=== PATIENT | male | born 1985 | race Two or more races ===

== ENCOUNTER 2017-01-15 10:35 | Inpatient (IN) | payer OTHER ==
[2017-01-15] MEDS ORDERED: Sodium Chloride 0.9% 1,000 ML IV ONE (10:49)
[2017-01-15] MEDS ORDERED: Sodium Chloride 0.9% 10 ML Syringe FLUSH PRN ×2 (10:49→14:02)
[2017-01-15] MEDS ORDERED: Sodium Chloride 0.9% 2.5 ML Syringe FLUSH PRN ×2 (10:49→14:02)
[2017-01-15] MEDS ORDERED: Ondansetron 4 MG/2 ML SDV IVPUSH ONE (10:55)
[2017-01-15] MEDS: HYDROmorphone 1 MG/ML Syringe IVPUSH PRN ×5 (11:07→22:44)
[2017-01-15 11:37] LABS: CHLORIDE,CL 102 mmol/L (98-110); SODIUM,NA 136 mmol/L (136-146)
[2017-01-15] MEDS ORDERED: Iopamidol 755 Mg/ML 100 ML Bottle IVPUSH STA (12:18)
[2017-01-15] MEDS ORDERED: metroNIDAZOLE/Normal Saline 500 MG in Premix Bag 1 BAG IV ONE (13:17)
[2017-01-15] MEDS ORDERED: Ciprofloxacin in D5W 400 MG in Premix Bag 1 BAG IV SCH ×2 (13:30)
[2017-01-15] MEDS ORDERED: Ondansetron 4 MG/2 ML SDV IVPUSH PRN (14:02)
--- NOTE | 2017-01-15 14:29 | PCM.CONS ---
H&P History of Present Illness - General Date of Service: 01/15/17 Admit Problem/Dx: Admission Diagnosis/Problem Admission Diagnosis/Problem Diverticulitis of colon Microperforation with a small amount of extraluminal air. No abscess. Source of Information: Patient History Limitations: Reports: No Limitations - History of Present Illness Symptom Onset Date: 01/11/17 Duration of Symptoms: Reports: Getting Worse Location: Reports: Abdomen Quality: Reports: Ache, Pressure Severity: Severe Improves with: Reports: Rest Worsens with: Reports: Movement Associated Symptoms: Reports: Fever/Chills, Loss of Appetite, Malaise, Nausea/ Vomiting LLQ Pain Score (Numeric/FACES): 8 - Related Data Allergies/Adverse Reactions: Allergies Allergy/AdvReac Type Severity Reaction Status Date / Time No Known Allergies Allergy Verified 01/15/17 10:52 Home Medications: Home Meds . [No Known Home Meds] 11/03/16 [History] Past Medical History - Past Health History Medical/Surgical History: Denies Medical/Surgical History - Past Surgical History GI Surgical History: Reports: Appendectomy Social & Family History - Family History Family Medical History: Noncontributory - Tobacco Use Smoking Status *Q: Never Smoker - Caffeine Use Caffeine Use: Reports: None - Recreational Drug Use Recreational Drug Use: No H&P Review of Systems - Review of Systems: Review Of Systems: See Below General: Reports: Fever, Chills, Decreased Appetite HEENT: Reports: No Symptoms Pulmonary: Denies: Shortness of Breath, Wheezing Cardiovascular: Denies: Chest Pain Gastrointestinal: Reports: Abdominal Pain, Diarrhea, Decreased Appetite, Flatus , Nausea, Vomiting. Denies: Black Stool, Bloody Stool Genitourinary: Denies: Dysuria, Frequency Musculoskeletal: Reports: No Symptoms Skin: Reports: No Symptoms Psychiatric: Reports: No Symptoms Neurological: Reports: No Symptoms Hematologic/Lymphatic: Reports: No Symptoms Immunologic: Reports: No Symptoms Exam - Exam Exam: See Below - Vital Signs Vital Signs: Last Vital Signs Temp 98.3 F 01/15/17 13:44 Pulse 97 01/15/17 13:44 Resp 16 01/15/17 13:44 BP 115/75 01/15/17 13:44 Pulse Ox 98 01/15/17 13:44 Weight: 216 lb 14.958 oz - Exam General: Alert, Oriented, Cooperative, Moderate Distress HEENT: Conjunctiva Clear, EACs Clear, EOMI, Pupils Equal, Pupils Reactive Neck: Supple, Trachea Midline Lungs: Clear to Auscultation, Normal Respiratory Effort Cardiovascular: Regular Rate, Regular Rhythm. No: Systolic Murmur, Diastolic Murmur GI/Abdominal Exam: Normal Bowel Sounds, No Distention, Guarding, Rebound, Tender. No: Rigid, Hernia, Mass (Male) Exam: No Hernia Back Exam: Normal Inspection Extremities: Normal Inspection Peripheral Pulses: 4+: Posterior Tibial (L), Posterior Tibial (R), Dorsalis Pedis (L), Dorsalis Pedis (R) Skin: Warm, Dry, Intact Neurological: Cranial Nerves Intact, Reflexes Equal Bilateral Neuro Extensive - Mental Status: Alert, Oriented x3, Normal Mood/Affect, Normal Cognition Neuro Extensive - Motor, Sensory, Reflexes: CN II-XII Intact, Normal Gait, Normal Reflexes Psychiatric: Alert, Normal Affect, Normal Mood - Patient Data Lab Results Last 24 hrs: Laboratory Results - last 24 hr 01/15/17 01/15/17 Range/Units 11:06 11:06 WBC 13.79 H (4.0-11.0) K/uL RBC 4.49 L (4.50-5.90) M/uL Hgb 13.9 (13.0-17.0) g/dL Hct 39.7 (38.0-50.0) % MCV 88.4 (80.0-98.0) fL MCH 31.0 (27.0-32.0) pg MCHC 35.0 (31.0-37.0) g/dL RDW Std Deviation 40.3 (28.0-62.0) fl RDW Coeff of Enrrique 13 (11.0-15.0) % Plt Count 195 (150-400) K/uL MPV 9.90 (7.40-12.00) fL Neut % (Auto) 83.7 H (48.0-80.0) % Lymph % (Auto) 9.0 L (16.0-40.0) % Lyman % (Auto) 7.1 (0.0-15.0) % Eos % (Auto) 0.1 (0.0-7.0) % Baso % (Auto) 0.1 (0.0-1.5) % Neut # (Auto) 11.5 H (1.4-5.7) K/uL Lymph # (Auto) 1.2 (0.6-2.4) K/uL Lyman # (Auto) 1.0 H (0.0-0.8) K/uL Eos # (Auto) 0.0 (0.0-0.7) K/uL Baso # (Auto) 0.0 (0.0-0.1) K/uL Nucleated RBC % 0.0 /100WBC Nucleated RBCs # 0 K/uL Sodium 136 (136-146) mmol/L Potassium 3.7 (3.5-5.1) mmol/L Chloride 102 (98-110) mmol/L Carbon Dioxide 23 (21-31) mmol/L BUN 13 (6.0-23.0) mg/dL Creatinine 0.8 (0.6-1.5) mg/dL Est Cr Clr Drug Dosing 133.79 mL/min Estimated GFR (MDRD) > 60.0 ml/min Glucose 106 (60-110) mg/dL Calcium 9.0 (8.8-10.8) mg/dL Total Bilirubin 2.8 H (0.1-1.5) mg/dL AST 18 (5-40) IU/L ALT 20 (8-54) IU/L Alkaline Phosphatase 65 (40-150) Total Protein 7.9 (6.0-8.0) g/dL Albumin 4.2 (3.5-5.0) g/dL Globulin 3.7 H (2.0-3.5) g/dL Albumin/Globulin Ratio 1.1 L (1.3-2.8) Lipase 37 (7-80) U/L Result Diagrams: 01/15/17 11:06 01/15/17 11:06 Imaging Impressions Last 24 hrs: Radiologic studies have personally been reviewed. There is certainly significant amount of diverticulitis in the left lower quadrant along with her small amount of extraluminal air. I do not appreciate any subdiaphragmatic air. I also did not see a significant fluid collection. The radiology report has also personally been reviewed and I agree with their findings. Consult PN Assessment/Plan Procedures: Procedures ASSAY OF MAGNESIUM (11/03/16) ASSAY THYROID STIM HORMONE (11/03/16) COMPLETE CBC W/AUTO DIFF WBC (11/03/16) COMPREHEN METABOLIC PANEL (11/03/16) EMERGENCY DEPT VISIT (11/03/16) GLUCOSE BLOOD TEST (11/03/16) HYDRATE IV INFUSION ADD-ON (11/03/16) METABOLIC PANEL TOTAL CA (11/03/16) ROUTINE VENIPUNCTURE (11/03/16) THER/PROPH/DIAG IV INF ADDON (11/03/16) THER/PROPH/DIAG IV INF INIT (11/03/16) TX/PRO/DX INJ NEW DRUG ADDON (11/03/16) TX/PROPH/DG ADDL SEQ IV INF (11/03/16) URINALYSIS AUTO W/SCOPE (11/03/16) (1) Diverticulitis of large intestine with perforation without abscess or bleeding SNOMED Code(s): 2643515 Code(s): K57.20 - DVTRCLI OF LG INT W PERFORATION AND ABSCESS W/O BLEEDING Priority: High Current Visit: Yes Comment: There is no evidence of abscess at this time. There is an acute inflammatory process in the LLQ with a small amount of extraluminal air. Problem List Initiated/Reviewed/Updated: Yes Plan: RECOMMENDATIONS: 1) Keep nothing by mouth except for ice chips. 2) Aggressive IV fluid resuscitation with antibiotics. 3) Pain control. 4) Repeat CBC with manual differential on 01/16. 5) Antipyretics of choice. Will follow. Thank you for this consultation.
--- NOTE | 2017-01-15 14:32 | PCM.HP ---
H&P History of Present Illness - General Date of Service: 01/15/17 Admit Problem/Dx: Admission Diagnosis/Problem Admission Diagnosis/Problem Diverticulitis of colon Source of Information: Patient - History of Present Illness Initial Comments - Free Text/Narative: 31-year-old gentleman who is presenting secondary to acute abdominal pain that started on . Patient states that he had just come back from location for about a week started to have acute lower abdominal pain. He initially attributed the pain to him getting back to work. 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 He stated that he does do quite a lot of physical activity and he thought that that was just secondary to that. However he did start to develop some nausea overnight. And diarrhea secondary to oral intake. On 01/14/2017 while he was at work are unknown he started develop severe abdominal pain nausea no episodes of vomiting he did have 2 episodes of dry heaving. She stated that he continue to work up until his shift ended at 7 PM. He was still in extreme amount of lower abdominal pain and and now started to radiate up to the right upper quadrant. Patient says the pain is 8 out of 10 and sharp in nature. Patient stated that he had 2 episodes of watery diarrhea secondary to oral intake. He stated that overnight he was unable to intake any further oral intake without pain and nausea. Patient stated that he did take acetaminophen to help with the pain and it did not alleviate it. Patient denies any febrile episodes, any heart palpitations, or headaches. Patient denies pain anywhere else. Patient does state that he has had appendicitis and removal of the appendix about 4 years ago. He has not had any other GI related issues. He has no other past medical history that is pertinent. He takes no other medications. Denies any other surgeries. He denies any family history of any colon cancer, inflammatory bowel disease, or any other GI related issues. He shouldn't denies smoking denies any illicit drug use and states that the last time he had a drink of alcohol was while on vacation back home. Onset of Symptoms: Reports: Sudden LLQ Pain Score (Numeric/FACES): 8 - Related Data Allergies/Adverse Reactions: Allergies Allergy/AdvReac Type Severity Reaction Status Date / Time No Known Allergies Allergy Verified 01/15/17 10:52 Home Medications: Home Meds . [No Known Home Meds] 11/03/16 [History] Past Medical History - Past Health History Medical/Surgical History: Denies Medical/Surgical History - Past Surgical History GI Surgical History: Reports: Appendectomy Social & Family History - Family History Family Medical History: Noncontributory - Tobacco Use Smoking Status *Q: Never Smoker - Caffeine Use Caffeine Use: Reports: None - Recreational Drug Use Recreational Drug Use: No H&P Review of Systems - Review of Systems: Review Of Systems: ROS reveals no pertinent complaints other than HPI. Exam - Exam Exam: See Below - Vital Signs Vital Signs: Last Vital Signs Temp 36.8 C 01/15/17 13:44 Pulse 97 01/15/17 13:44 Resp 16 01/15/17 13:44 BP 115/75 01/15/17 13:44 Pulse Ox 98 01/15/17 13:44 Weight: 98.4 kg - Exam General: Alert, Oriented HEENT: Conjunctiva Clear Neck: Supple Lungs: Clear to Auscultation, Normal Respiratory Effort Cardiovascular: Regular Rate, Regular Rhythm GI/Abdominal Exam: Abnormal Bowel Sounds (Decreased bowel sounds, rigid and tender abdomen all 4 quadrants even upon light palpation) Extremities: Normal Inspection, Non-Tender, No Pedal Edema Neuro Extensive - Mental Status: Alert, Oriented x3 - Patient Data Lab Results Last 24 hrs: Laboratory Results - last 24 hr 01/15/17 01/15/17 Range/Units 11:06 11:06 WBC 13.79 H (4.0-11.0) K/uL RBC 4.49 L (4.50-5.90) M/uL Hgb 13.9 (13.0-17.0) g/dL Hct 39.7 (38.0-50.0) % MCV 88.4 (80.0-98.0) fL MCH 31.0 (27.0-32.0) pg MCHC 35.0 (31.0-37.0) g/dL RDW Std Deviation 40.3 (28.0-62.0) fl RDW Coeff of Enrrique 13 (11.0-15.0) % Plt Count 195 (150-400) K/uL MPV 9.90 (7.40-12.00) fL Neut % (Auto) 83.7 H (48.0-80.0) % Lymph % (Auto) 9.0 L (16.0-40.0) % George % (Auto) 7.1 (0.0-15.0) % Eos % (Auto) 0.1 (0.0-7.0) % Baso % (Auto) 0.1 (0.0-1.5) % Neut # (Auto) 11.5 H (1.4-5.7) K/uL Lymph # (Auto) 1.2 (0.6-2.4) K/uL George # (Auto) 1.0 H (0.0-0.8) K/uL Eos # (Auto) 0.0 (0.0-0.7) K/uL Baso # (Auto) 0.0 (0.0-0.1) K/uL Nucleated RBC % 0.0 /100WBC Nucleated RBCs # 0 K/uL Sodium 136 (136-146) mmol/L Potassium 3.7 (3.5-5.1) mmol/L Chloride 102 (98-110) mmol/L Carbon Dioxide 23 (21-31) mmol/L BUN 13 (6.0-23.0) mg/dL Creatinine 0.8 (0.6-1.5) mg/dL Est Cr Clr Drug Dosing 133.79 mL/min Estimated GFR (MDRD) > 60.0 ml/min Glucose 106 (60-110) mg/dL Calcium 9.0 (8.8-10.8) mg/dL Total Bilirubin 2.8 H (0.1-1.5) mg/dL AST 18 (5-40) IU/L ALT 20 (8-54) IU/L Alkaline Phosphatase 65 (40-150) Total Protein 7.9 (6.0-8.0) g/dL Albumin 4.2 (3.5-5.0) g/dL Globulin 3.7 H (2.0-3.5) g/dL Albumin/Globulin Ratio 1.1 L (1.3-2.8) Lipase 37 (7-80) U/L Result Diagrams: 01/15/17 11:06 01/15/17 11:06 *Q Meaningful Use (ADM) - VTE *Q VTE Criteria *Q: - Stroke *Q Stroke Criteria *Q: - AMI *Q AMI Criteria *Q: Problem List Initiated/Reviewed/Updated: Yes Orders Last 24hrs: Active Orders 24 hr Category Date Time Status Patient Status [ADT] Routine ADT 01/15/17 14:02 Active Notify Provider Consults [RC] ASDIRECTED Care 01/15/17 14:23 Active Oxygen Therapy [RC] PRN Care 01/15/17 14:02 Active Peripheral IV Care [RC] . DIRECTED Care 01/15/17 14:02 Active Up With Assistance [RC] ASDIRECTED Care 01/15/17 14:02 Active VTE/DVT Education [RC] PER UNIT ROUTINE Care 01/15/17 14:02 Active Vital Signs [RC] Q4H Care 01/15/17 14:02 Active Consult to Physician [CONS] Stat Cons 01/15/17 14:17 Active NPO [Nothing Per Oral Diet] [DIET] Diet 01/15/17 Lunch Active Nothing per Oral Now Diet [DIET] Diet 01/15/17 Breakfast Active Abdomen Pelvis w Cont [CT] Stat Exams 01/15/17 11:26 Taken CBC WITH AUTO DIFF [HEME] AM Lab 01/16/17 05:11 Ordered CDIFF TOX A+B [OP] Stat Lab 01/15/17 14:17 Uncollected COMPREHENSIVE METABOLIC PN,CMP [CHEM] AM Lab 01/16/17 05:11 Ordered CULTURE STOOL + CAMPY+SHIGATOX [RM] Stat Lab 01/15/17 14:17 Uncollected FAT, STOOL Stat Lab 01/15/17 14:17 Ordered MAGNESIUM [CHEM] Routine Lab 01/15/17 11:06 Received UA W/MICROSCOPIC [URIN] Stat Lab 01/15/17 10:48 Uncollected WBC, STOOL [OP] Stat Lab 01/15/17 14:17 Uncollected Ciprofloxacin in D5W [Cipro in D5W 400 MG/200 ML] 400 Med 01/15/17 13:30 Active mg Premix Bag 1 bag IV Q12H Ciprofloxacin in D5W [Cipro in D5W 400 MG/200 ML] 400 Med 01/15/17 14:15 Active mg Premix Bag 1 bag IV Q12H Enoxaparin [Lovenox] Med 01/15/17 14:15 Active 40 mg SUBCUT DAILY HYDROmorphone [Dilaudid] Med 01/15/17 10:55 Active 0.5 mg IVPUSH Q1H PRN HYDROmorphone [Dilaudid] Med 01/15/17 13:28 Active 0.5 mg IVPUSH Q1H PRN HYDROmorphone [Dilaudid] Med 01/15/17 14:02 Active 1 mg IVPUSH Q2H PRN Ondansetron [Zofran] Med 01/15/17 14:02 Active 4 mg IVPUSH Q4H PRN Sodium Chloride 0.9% [Normal Saline] 1,000 ml Med 01/15/17 14:15 Active IV ASDIRECTED Sodium Chloride 0.9% [Saline Flush] Med 01/15/17 10:49 Active 10 ml FLUSH ASDIRECTED PRN Sodium Chloride 0.9% [Saline Flush] Med 01/15/17 14:02 Active 10 ml FLUSH ASDIRECTED PRN Sodium Chloride 0.9% [Saline Flush] Med 01/15/17 10:49 Active 2.5 ml FLUSH ASDIRECTED PRN Sodium Chloride 0.9% [Saline Flush] Med 01/15/17 14:02 Active 2.5 ml FLUSH ASDIRECTED PRN metroNIDAZOLE/Normal Saline [Flagyl 500 MG in NS 100 ML Med 01/15/17 22:00 Active ] 500 mg Premix Bag 1 bag IV Q8HR Peripheral IV Insertion Adult [OM.PC] Routine Oth 01/15/17 14:02 Ordered Saline Lock Insert [OM.PC] Routine Oth 01/15/17 14:02 Ordered Saline Lock Insert [OM.PC] Stat Oth 01/15/17 10:48 Ordered Resuscitation Status Routine Resus Stat 01/15/17 14:02 Ordered Medication Orders Enoxaparin Sodium (Lovenox) 40 mg SUBCUT DAILY [facility] Hydromorphone HCl (Dilaudid) 0.5 mg IVPUSH Q1H PRN PRN Reason: Pain Last Admin: 01/15/17 13:36 Dose: 0.5 mg Admin: 01/15/17 11:07 Dose: 0.5 mg Hydromorphone HCl (Dilaudid) 0.5 mg IVPUSH Q1H PRN PRN Reason: Pain Hydromorphone HCl (Dilaudid) 1 mg IVPUSH Q2H PRN PRN Reason: Pain (severe 7-10) Ciprofloxacin/Dextrose 400 mg/ (Premix) 200 mls @ 200 mls/hr IV Q12H [facility] Sodium Chloride (Normal Saline) 1,000 mls @ 125 mls/hr IV ASDIRECTED [facility] Ciprofloxacin/Dextrose 400 mg/ (Premix) 200 mls @ 200 mls/hr IV Q12H [facility] Metronidazole 500 mg/ Premix 100 mls @ 100 mls/hr IV Q8HR [facility] Ondansetron HCl (Zofran) 4 mg IVPUSH Q4H PRN PRN Reason: Nausea/Vomiting Sodium Chloride (Saline Flush) 10 ml FLUSH ASDIRECTED PRN PRN Reason: Keep Vein Open Sodium Chloride (Saline Flush) 2.5 ml FLUSH ASDIRECTED PRN PRN Reason: Keep Vein Open Sodium Chloride (Saline Flush) 10 ml FLUSH ASDIRECTED PRN PRN Reason: Keep Vein Open Sodium Chloride (Saline Flush) 2.5 ml FLUSH ASDIRECTED PRN PRN Reason: Keep Vein Open Assessment/Plan Comment:: Assessment and plan #1. Acute abdominal pain all 4 quadrants, tender, rigid upon light palpation with nausea, watery diarrhea, leukocytosis neutrophilic shift in nature, with a CT abdomen showing a acute diverticulitis at the junction of the descending colon with a microperforation. Most likely etiology is acute diverticulitis with microperforation - Patient is admitted to inpatient status greater than 2 midnights - Vitals per unit protocol - Diet: patient shall be nothing by mouth, patient is allowed to have small amount of ice chips - Normal saline at a rate of 125 mL per hour - Pain control: Dilaudid 1 mg every 2 hours when necessary - Nausea: Zofran 4 mg IV every 4 hours when necessary - Antibiotics: Ciprofloxacin IV 400 mg every 12 hours, metronidazole IV 500 mg every 8 hours - Stool culture pending - Surgery consult has been placed spoken with Dr. Hansen who states at this point in time medical management is appropriate Dr. Sanchez shall continue to follow the patient and make recommendations as necessary -CMP, CBC in the a.m., repeat imaging if patient acutely decompensating or getting worse. #2. Leukocytosis with neutrophilic shift #3. Elevated bilirubin level Patient is admitted inpatient status. Greater than 2 midnights, full code
[2017-01-15] MEDS: Ciprofloxacin in D5W 400 MG in Premix Bag 1 BAG IV SCH ×2 (14:56)
[2017-01-15] MEDS: HYDROmorphone 2 MG/ML Syringe IVPUSH PRN ×2 (15:07→17:25)
[2017-01-15] MEDS: Sodium Chloride 0.9% 1,000 ML IV SCH ×2 (15:09→22:27)
[2017-01-15] MEDS: Enoxaparin 40 MG/0.4 ML Syringe SUBCUT SCH (15:15)
[2017-01-15] MEDS: metroNIDAZOLE/Normal Saline 500 MG in Premix Bag 1 BAG IV SCH (21:18)
--- NOTE | 2017-01-15 21:26 | PCM.SN ---
- Free Text/Narrative Note: Patient feeling a little better tonight. Asking about eating. Says pain is still there but not as bad. Afebrile. VSS. Abdomen is softer than earlier today but still very tender in LLQ. ASSESSMENT: Diverticulitis w/ microperforation. PLAN: Keep NPO until WBC normal, afebrile, abdomen is not tender and he is passing gas. Suspect he will need a 2 week course of parenteral/oral antibiotics.
[2017-01-16] MEDS: Ciprofloxacin in D5W 400 MG in Premix Bag 1 BAG IV SCH ×4 (02:07→14:46)
[2017-01-16 05:26] LABS: CHLORIDE,CL 106 mmol/L (98-110); SODIUM,NA 138 mmol/L (136-146)
[2017-01-16] MEDS: metroNIDAZOLE/Normal Saline 500 MG in Premix Bag 1 BAG IV SCH ×3 (05:58→21:09)
[2017-01-16] MEDS: Sodium Chloride 0.9% 1,000 ML IV SCH ×3 (05:59→23:50)
[2017-01-16] MEDS: Enoxaparin 40 MG/0.4 ML Syringe SUBCUT SCH (08:25)
--- NOTE | 2017-01-16 08:37 | PCM.PN ---
- Review of Systems Systems Review Comment:: abdominal pain is improving. - Patient Data Vitals - Most Recent: Last Vital Signs Temp 36.8 C 01/16/17 08:00 Pulse 78 01/16/17 08:00 Resp 16 01/16/17 08:00 BP 132/69 01/16/17 08:00 Pulse Ox 96 01/16/17 08:00 Weight - Most Recent: 96.388 kg I&O - Last 24 Hours: Intake & Output 01/15/17 01/16/17 01/16/17 22:59 06:59 14:59 Intake Total 970 1230 100 Output Total 0 900 Balance 970 330 100 Lab Results Last 24 Hours: Laboratory Results - last 24 hr 01/15/17 01/16/17 01/16/17 Range/Units 14:31 04:32 04:32 WBC 8.82 (4.0-11.0) K/uL RBC 4.18 L (4.50-5.90) M/uL Hgb 12.8 L (13.0-17.0) g/dL Hct 37.7 L (38.0-50.0) % MCV 90.2 (80.0-98.0) fL MCH 30.6 (27.0-32.0) pg MCHC 34.0 (31.0-37.0) g/dL RDW Std Deviation 41.5 (28.0-62.0) fl RDW Coeff of Enrrique 13 (11.0-15.0) % Plt Count 200 (150-400) K/uL MPV 9.90 (7.40-12.00) fL Neut % (Auto) 76.7 (48.0-80.0) % Lymph % (Auto) 13.4 L (16.0-40.0) % [place]kin % (Auto) 8.7 (0.0-15.0) % Eos % (Auto) 1.0 (0.0-7.0) % Baso % (Auto) 0.2 (0.0-1.5) % Neut # (Auto) 6.8 H (1.4-5.7) K/uL Lymph # (Auto) 1.2 (0.6-2.4) K/uL Pitkin # (Auto) 0.8 (0.0-0.8) K/uL Eos # (Auto) 0.1 (0.0-0.7) K/uL Baso # (Auto) 0.0 (0.0-0.1) K/uL Nucleated RBC % 0.0 /100WBC Nucleated RBCs # 0 K/uL Sodium 138 (136-146) mmol/L Potassium 4.6 (3.5-5.1) mmol/L Chloride 106 (98-110) mmol/L Carbon Dioxide 24 (21-31) mmol/L BUN 8 (6.0-23.0) mg/dL Creatinine 0.7 (0.6-1.5) mg/dL Est Cr Clr Drug Dosing 152.90 mL/min Estimated GFR (MDRD) > 60.0 ml/min Glucose 91 (60-110) mg/dL Calcium 8.6 L (8.8-10.8) mg/dL Total Bilirubin 1.6 H (0.1-1.5) mg/dL AST 14 (5-40) IU/L ALT 15 (8-54) IU/L Alkaline Phosphatase 55 (40-150) Total Protein 6.7 (6.0-8.0) g/dL Albumin 3.5 (3.5-5.0) g/dL Globulin 3.2 (2.0-3.5) g/dL Albumin/Globulin Ratio 1.1 L (1.3-2.8) Urine Color YELLOW Urine Appearance CLEAR Urine pH 5.5 (5.0-8.0) Ur Specific [place] 1.010 (1.001-1.035) Urine Protein NEGATIVE (NEGATIVE) mg/dL Urine Glucose (UA) NEGATIVE (NEGATIVE) mg/dL Urine Ketones NEGATIVE (NEGATIVE) mg/dL Urine Occult Blood NEGATIVE (NEGATIVE) Urine Nitrite NEGATIVE (NEGATIVE) Urine Bilirubin NEGATIVE (NEGATIVE) Urine Urobilinogen 1.0 (<2.0) EU/dL Ur Leukocyte Esterase NEGATIVE (NEGATIVE) Urine RBC NONE SEEN (0-2/HPF) Urine WBC NONE SEEN (0-5/HPF) Ur Epithelial Cells RARE (NONE-FEW) Urine Bacteria NOT SEEN (NEGATIVE) Med Orders - Current: Current Medications Enoxaparin Sodium (Lovenox) 40 mg SUBCUT DAILY [facility] Last Admin: 01/16/17 08:25 Dose: 40 mg Hydromorphone HCl (Dilaudid) 0.5 mg IVPUSH Q1H PRN PRN Reason: Pain Last Admin: 01/15/17 22:44 Dose: 0.5 mg Hydromorphone HCl (Dilaudid) 1 mg IVPUSH Q2H PRN PRN Reason: Pain (severe 7-10) Last Admin: 01/15/17 21:17 Dose: 1 mg Sodium Chloride (Normal Saline) 1,000 mls @ 150 mls/hr IV ASDIRECTED [facility] Last Admin: 01/16/17 05:59 Dose: 150 mls/hr Ciprofloxacin/Dextrose 400 mg/ (Premix) 200 mls @ 200 mls/hr IV Q12H [facility] Last Admin: 01/16/17 02:07 Dose: 200 mls/hr Metronidazole 500 mg/ Premix 100 mls @ 100 mls/hr IV Q8HR [facility] Last Admin: 01/16/17 05:58 Dose: 100 mls/hr Ondansetron HCl (Zofran) 4 mg IVPUSH Q4H PRN PRN Reason: Nausea/Vomiting Last Admin: 01/16/17 00:00 Dose: 4 mg Sodium Chloride (Saline Flush) 10 ml FLUSH ASDIRECTED PRN PRN Reason: Keep Vein Open Sodium Chloride (Saline Flush) 2.5 ml FLUSH ASDIRECTED PRN PRN Reason: Keep Vein Open Sodium Chloride (Saline Flush) 10 ml FLUSH ASDIRECTED PRN PRN Reason: Keep Vein Open Sodium Chloride (Saline Flush) 2.5 ml FLUSH ASDIRECTED PRN PRN Reason: Keep Vein Open Discontinued Medications Hydromorphone HCl (Dilaudid) 0.5 mg IVPUSH Q1H PRN PRN Reason: Pain Last Admin: 01/15/17 13:36 Dose: 0.5 mg Hydromorphone HCl (Dilaudid) 1 mg IVPUSH Q2H PRN PRN Reason: Pain (severe 7-10) Last Admin: 01/15/17 17:25 Dose: 1 mg Sodium Chloride (Normal Saline) 1,000 mls @ 999 mls/hr IV .Bolus ONE Stop: 01/15/17 11:49 Last Admin: 01/15/17 11:07 Dose: 999 mls/hr Ciprofloxacin/Dextrose 400 mg/ (Premix) 200 mls @ 200 mls/hr IV Q12H [facility] Last Admin: 01/15/17 14:39 Dose: 200 mls/hr Metronidazole 500 mg/ Premix 100 mls @ 100 mls/hr IV ONETIME ONE Stop: 01/15/17 14:16 Last Admin: 01/15/17 13:36 Dose: 100 mls/hr Iopamidol (Isovue-370 (76%)) 100 ml IVPUSH ONETIME STA Stop: 01/15/17 12:19 Last Admin: 01/15/17 12:19 Dose: 100 ml Ondansetron HCl (Zofran) 4 mg IVPUSH ONETIME ONE Stop: 01/15/17 10:56 Last Admin: 01/15/17 11:07 Dose: 4 mg - Exam General: Alert, Oriented Lungs: Clear to Auscultation, Normal Respiratory Effort Cardiovascular: Regular Rate, Regular Rhythm GI/Abdominal Exam: Normal Bowel Sounds, Soft, Non-Tender, No Organomegaly, No Distention, No Abnormal Bruit, No Mass, Pelvis Stable Extremities: Normal Inspection, Normal Range of Motion, Non-Tender, No Pedal Edema, Normal Capillary Refill Skin: Warm, Dry, Intact - Problem List Review Problem List Initiated/Reviewed/Updated: Yes - My Orders Last 24 Hours: My Active Orders 01/17/17 05:11 BMP [BASIC METABOLIC PANEL,BMP] [CHEM] AM CBC WITH AUTO DIFF [HEME] AM - Plan Plan:: Assessment and plan 31 yo male with acute diverticulitis. Will continue IV fluids, and ciprofloxacin and Flagyl. Appreciate consult from Dr. Hansen.
[2017-01-16] MEDS: HYDROmorphone 1 MG/ML Syringe IVPUSH PRN ×4 (08:45→19:06)
--- NOTE | 2017-01-16 09:13 | PCM.CONSN ---
- General Info Date of Service: 01/16/17 Admission Dx/Problem (Free Text): Acute diverticulitis w/ microperforation. Subjective Update: Patient is feeling better. Hungry and asking to eat. Functional Status: Reports: Pain Controlled, Ambulating Pain Score: 5 - Review of Systems General: Reports: Appetite. Denies: Fever HEENT: Reports: No Symptoms Pulmonary: Reports: No Symptoms Cardiovascular: Reports: No Symptoms Gastrointestinal: Reports: Abdominal Pain, Flatus. Denies: Constipation, Diarrhea Genitourinary: Reports: No Symptoms Musculoskeletal: Reports: No Symptoms Skin: Reports: No Symptoms Neurological: Reports: No Symptoms Psychiatric: Reports: No Symptoms - Patient Data Vitals - Most Recent: Last Vital Signs Temp 98.2 F 01/16/17 08:00 Pulse 78 01/16/17 08:00 Resp 16 01/16/17 08:00 BP 132/69 01/16/17 08:00 Pulse Ox 96 01/16/17 08:00 Weight - Most Recent: 212 lb 8 oz I&O - Last 24 Hours: Intake & Output 01/15/17 01/16/17 01/16/17 19:59 03:59 11:59 Intake Total 200 1170 1130 Output Total 0 900 Balance 200 1170 230 Lab Results Last 24 Hours: Laboratory Results - last 24 hr 01/15/17 01/16/17 01/16/17 Range/Units 14:31 04:32 04:32 WBC 8.82 (4.0-11.0) K/uL RBC 4.18 L (4.50-5.90) M/uL Hgb 12.8 L (13.0-17.0) g/dL Hct 37.7 L (38.0-50.0) % MCV 90.2 (80.0-98.0) fL MCH 30.6 (27.0-32.0) pg MCHC 34.0 (31.0-37.0) g/dL RDW Std Deviation 41.5 (28.0-62.0) fl RDW Coeff of Enrriuqe 13 (11.0-15.0) % Plt Count 200 (150-400) K/uL MPV 9.90 (7.40-12.00) fL Neut % (Auto) 76.7 (48.0-80.0) % Lymph % (Auto) 13.4 L (16.0-40.0) % [place] % (Auto) 8.7 (0.0-15.0) % Eos % (Auto) 1.0 (0.0-7.0) % Baso % (Auto) 0.2 (0.0-1.5) % Neut # (Auto) 6.8 H (1.4-5.7) K/uL Lymph # (Auto) 1.2 (0.6-2.4) K/uL [place] # (Auto) 0.8 (0.0-0.8) K/uL Eos # (Auto) 0.1 (0.0-0.7) K/uL Baso # (Auto) 0.0 (0.0-0.1) K/uL Nucleated RBC % 0.0 /100WBC Nucleated RBCs # 0 K/uL Sodium 138 (136-146) mmol/L Potassium 4.6 (3.5-5.1) mmol/L Chloride 106 (98-110) mmol/L Carbon Dioxide 24 (21-31) mmol/L BUN 8 (6.0-23.0) mg/dL Creatinine 0.7 (0.6-1.5) mg/dL Est Cr Clr Drug Dosing 152.90 mL/min Estimated GFR (MDRD) > 60.0 ml/min Glucose 91 (60-110) mg/dL Calcium 8.6 L (8.8-10.8) mg/dL Total Bilirubin 1.6 H (0.1-1.5) mg/dL AST 14 (5-40) IU/L ALT 15 (8-54) IU/L Alkaline Phosphatase 55 (40-150) Total Protein 6.7 (6.0-8.0) g/dL Albumin 3.5 (3.5-5.0) g/dL Globulin 3.2 (2.0-3.5) g/dL Albumin/Globulin Ratio 1.1 L (1.3-2.8) Urine Color YELLOW Urine Appearance CLEAR Urine pH 5.5 (5.0-8.0) Ur Specific Mckenna 1.010 (1.001-1.035) Urine Protein NEGATIVE (NEGATIVE) mg/dL Urine Glucose (UA) NEGATIVE (NEGATIVE) mg/dL Urine Ketones NEGATIVE (NEGATIVE) mg/dL Urine Occult Blood NEGATIVE (NEGATIVE) Urine Nitrite NEGATIVE (NEGATIVE) Urine Bilirubin NEGATIVE (NEGATIVE) Urine Urobilinogen 1.0 (<2.0) EU/dL Ur Leukocyte Esterase NEGATIVE (NEGATIVE) Urine RBC NONE SEEN (0-2/HPF) Urine WBC NONE SEEN (0-5/HPF) Ur Epithelial Cells RARE (NONE-FEW) Urine Bacteria NOT SEEN (NEGATIVE) Med Orders - Current: Current Medications Enoxaparin Sodium (Lovenox) 40 mg SUBCUT DAILY [facility] Last Admin: 01/16/17 08:25 Dose: 40 mg Hydromorphone HCl (Dilaudid) 0.5 mg IVPUSH Q1H PRN PRN Reason: Pain Last Admin: 01/16/17 08:45 Dose: 0.5 mg Hydromorphone HCl (Dilaudid) 1 mg IVPUSH Q2H PRN PRN Reason: Pain (severe 7-10) Last Admin: 01/15/17 21:17 Dose: 1 mg Sodium Chloride (Normal Saline) 1,000 mls @ 150 mls/hr IV ASDIRECTED [facility] Last Admin: 01/16/17 05:59 Dose: 150 mls/hr Ciprofloxacin/Dextrose 400 mg/ (Premix) 200 mls @ 200 mls/hr IV Q12H [facility] Last Admin: 01/16/17 02:07 Dose: 200 mls/hr Metronidazole 500 mg/ Premix 100 mls @ 100 mls/hr IV Q8HR [facility] Last Admin: 01/16/17 05:58 Dose: 100 mls/hr Ondansetron HCl (Zofran) 4 mg IVPUSH Q4H PRN PRN Reason: Nausea/Vomiting Last Admin: 01/16/17 00:00 Dose: 4 mg Sodium Chloride (Saline Flush) 10 ml FLUSH ASDIRECTED PRN PRN Reason: Keep Vein Open Sodium Chloride (Saline Flush) 2.5 ml FLUSH ASDIRECTED PRN PRN Reason: Keep Vein Open Sodium Chloride (Saline Flush) 10 ml FLUSH ASDIRECTED PRN PRN Reason: Keep Vein Open Sodium Chloride (Saline Flush) 2.5 ml FLUSH ASDIRECTED PRN PRN Reason: Keep Vein Open Discontinued Medications Hydromorphone HCl (Dilaudid) 0.5 mg IVPUSH Q1H PRN PRN Reason: Pain Last Admin: 01/15/17 13:36 Dose: 0.5 mg Hydromorphone HCl (Dilaudid) 1 mg IVPUSH Q2H PRN PRN Reason: Pain (severe 7-10) Last Admin: 01/15/17 17:25 Dose: 1 mg Sodium Chloride (Normal Saline) 1,000 mls @ 999 mls/hr IV .Bolus ONE Stop: 01/15/17 11:49 Last Admin: 01/15/17 11:07 Dose: 999 mls/hr Ciprofloxacin/Dextrose 400 mg/ (Premix) 200 mls @ 200 mls/hr IV Q12H [facility] Last Admin: 01/15/17 14:39 Dose: 200 mls/hr Metronidazole 500 mg/ Premix 100 mls @ 100 mls/hr IV ONETIME ONE Stop: 01/15/17 14:16 Last Admin: 01/15/17 13:36 Dose: 100 mls/hr Iopamidol (Isovue-370 (76%)) 100 ml IVPUSH ONETIME STA Stop: 01/15/17 12:19 Last Admin: 01/15/17 12:19 Dose: 100 ml Ondansetron HCl (Zofran) 4 mg IVPUSH ONETIME ONE Stop: 01/15/17 10:56 Last Admin: 01/15/17 11:07 Dose: 4 mg - Exam General: Alert, Oriented, Cooperative, Mild Distress HEENT: Pupils Equal, Pupils Reactive, EOMI Neck: Supple Lungs: Clear to Auscultation, Normal Respiratory Effort Cardiovascular: Regular Rate, Regular Rhythm. No: Tachycardia GI/Abdominal Exam: Normal Bowel Sounds, Soft, No Distention, Guarding, Rigid, Rebound, Tender (LLQ but less than yesterday.). No: Mass (Male) Exam: No Hernia, Normal Inspection, Normal Prostate, Circumcised Back Exam: Normal Inspection, Full Range of Motion Skin: Warm, Dry, Intact Neurological: No New Focal Deficit Psy/Mental Status: Alert, Normal Affect, Normal Mood Consult PN Assessment/Plan Procedures: Procedures ASSAY OF MAGNESIUM (11/03/16) ASSAY THYROID STIM HORMONE (11/03/16) COMPLETE CBC W/AUTO DIFF WBC (11/03/16) COMPREHEN METABOLIC PANEL (11/03/16) EMERGENCY DEPT VISIT (11/03/16) GLUCOSE BLOOD TEST (11/03/16) HYDRATE IV INFUSION ADD-ON (11/03/16) METABOLIC PANEL TOTAL CA (11/03/16) ROUTINE VENIPUNCTURE (11/03/16) THER/PROPH/DIAG IV INF ADDON (11/03/16) THER/PROPH/DIAG IV INF INIT (11/03/16) TX/PRO/DX INJ NEW DRUG ADDON (11/03/16) TX/PROPH/DG ADDL SEQ IV INF (11/03/16) URINALYSIS AUTO W/SCOPE (11/03/16) (1) Diverticulitis of large intestine with perforation without abscess or bleeding SNOMED Code(s): 6585255 Code(s): K57.20 - DVTRCLI OF LG INT W PERFORATION AND ABSCESS W/O BLEEDING Priority: High Current Visit: Yes Comment: There is no evidence of abscess at this time. There is an acute inflammatory process in the LLQ with a small amount of extraluminal air. Problem List Initiated/Reviewed/Updated: Yes Plan: Would keep NPO except for ice chips for at least another 24 hours. Tenderness needs to subside more before starting clear liquids. Continue parenteral antibiotics.
[2017-01-17] MEDS: Ciprofloxacin in D5W 400 MG in Premix Bag 1 BAG IV SCH ×4 (01:52→15:01)
[2017-01-17] MEDS: metroNIDAZOLE/Normal Saline 500 MG in Premix Bag 1 BAG IV SCH ×3 (05:24→21:04)
[2017-01-17 06:38] LABS: CHLORIDE,CL 108 mmol/L (98-110); SODIUM,NA 141 mmol/L (136-146)
[2017-01-17] MEDS: Enoxaparin 40 MG/0.4 ML Syringe SUBCUT SCH (08:12)
[2017-01-17] MEDS: HYDROmorphone 1 MG/ML Syringe IVPUSH PRN ×2 (08:19→15:01)
[2017-01-17] MEDS: Sodium Chloride 0.9% 1,000 ML IV SCH ×2 (09:25→18:11)
--- NOTE | 2017-01-17 11:35 | PCM.CONSN ---
- General Info Date of Service: 01/17/17 Admission Dx/Problem (Free Text): Acute diverticulitis w/ microperforation. Subjective Update: Patient is feeling better today. He still rates his pain a 5-7. He is passing gas and has had a bowel movement. He is anxious to return to an oral diet. Functional Status: Reports: Pain Controlled, Ambulating, Urinating - Review of Systems General: Reports: Appetite. Denies: Fever, Chills HEENT: Reports: No Symptoms Pulmonary: Denies: Shortness of Breath, Cough Cardiovascular: Reports: No Symptoms Gastrointestinal: Reports: Abdominal Pain (Left lower quadrant), Flatus. Denies : Constipation, Diarrhea, Nausea, Vomiting Genitourinary: Reports: No Symptoms Musculoskeletal: Reports: No Symptoms Skin: Reports: No Symptoms Neurological: Reports: No Symptoms Psychiatric: Reports: No Symptoms - Patient Data Vitals - Most Recent: Last Vital Signs Temp 98.7 F 01/17/17 08:00 Pulse 52 L 01/17/17 08:00 Resp 19 01/17/17 08:00 BP 116/66 01/17/17 08:00 Pulse Ox 98 01/17/17 08:00 Weight - Most Recent: 212 lb 8 oz I&O - Last 24 Hours: Intake & Output 01/16/17 01/17/17 01/17/17 19:59 03:59 11:59 Intake Total 1225 1300 1100 Output Total 1100 Balance 1225 1300 0 Lab Results Last 24 Hours: Laboratory Results - last 24 hr 01/17/17 01/17/17 Range/Units 06:05 06:05 WBC 5.78 (4.0-11.0) K/uL RBC 4.32 L (4.50-5.90) M/uL Hgb 13.5 (13.0-17.0) g/dL Hct 38.5 (38.0-50.0) % MCV 89.1 (80.0-98.0) fL MCH 31.3 (27.0-32.0) pg MCHC 35.1 (31.0-37.0) g/dL RDW Std Deviation 39.3 (28.0-62.0) fl RDW Coeff of Enrrique 12 (11.0-15.0) % Plt Count 233 (150-400) K/uL MPV 9.70 (7.40-12.00) fL Neut % (Auto) 66.4 (48.0-80.0) % Lymph % (Auto) 20.2 (16.0-40.0) % [place] % (Auto) 9.3 (0.0-15.0) % Eos % (Auto) 3.6 (0.0-7.0) % Baso % (Auto) 0.5 (0.0-1.5) % Neut # (Auto) 3.8 (1.4-5.7) K/uL Lymph # (Auto) 1.2 (0.6-2.4) K/uL [place] # (Auto) 0.5 (0.0-0.8) K/uL Eos # (Auto) 0.2 (0.0-0.7) K/uL Baso # (Auto) 0.0 (0.0-0.1) K/uL Nucleated RBC % 1.3 /100WBC Nucleated RBCs # 0 K/uL Sodium 141 (136-146) mmol/L Potassium 4.2 (3.5-5.1) mmol/L Chloride 108 (98-110) mmol/L Carbon Dioxide 26 (21-31) mmol/L BUN 7 (6.0-23.0) mg/dL Creatinine 0.7 (0.6-1.5) mg/dL Est Cr Clr Drug Dosing 152.90 mL/min Estimated GFR (MDRD) > 60.0 ml/min Glucose 86 (60-110) mg/dL Calcium 8.3 L (8.8-10.8) mg/dL Med Orders - Current: Current Medications Enoxaparin Sodium (Lovenox) [address] [facility] Last Admin: 01/17/17 08:12 Dose: 40 mg Hydromorphone HCl (Dilaudid) 1 mg IVPUSH Q2H PRN PRN Reason: Pain (severe 7-10) Last Admin: 01/17/17 08:19 Dose: 1 mg Sodium Chloride (Normal Saline) 1,000 mls @ 150 mls/hr IV ASDIRECTED [facility] Last Admin: 01/17/17 09:25 Dose: 150 mls/hr Ciprofloxacin/Dextrose 400 mg/ (Premix) 200 mls @ 200 mls/hr IV Q12H [facility] Last Admin: 01/17/17 01:52 Dose: 200 mls/hr Metronidazole 500 mg/ Premix 100 mls @ 100 mls/hr IV Q8HR [facility] Last Admin: 01/17/17 05:24 Dose: 100 mls/hr Ondansetron HCl (Zofran) 4 mg IVPUSH Q4H PRN PRN Reason: Nausea/Vomiting Last Admin: 01/16/17 00:00 Dose: 4 mg Sodium Chloride (Saline Flush) 10 ml FLUSH ASDIRECTED PRN PRN Reason: Keep Vein Open Sodium Chloride (Saline Flush) 2.5 ml FLUSH ASDIRECTED PRN PRN Reason: Keep Vein Open Sodium Chloride (Saline Flush) 10 ml FLUSH ASDIRECTED PRN PRN Reason: Keep Vein Open Sodium Chloride (Saline Flush) 2.5 ml FLUSH ASDIRECTED PRN PRN Reason: Keep Vein Open Discontinued Medications Hydromorphone HCl (Dilaudid) 0.5 mg IVPUSH Q1H PRN PRN Reason: Pain Last Admin: 01/15/17 13:36 Dose: 0.5 mg Hydromorphone HCl (Dilaudid) 0.5 mg IVPUSH Q1H PRN PRN Reason: Pain Last Admin: 01/16/17 15:18 Dose: 0.5 mg Hydromorphone HCl (Dilaudid) 1 mg IVPUSH Q2H PRN PRN Reason: Pain (severe 7-10) Last Admin: 01/15/17 17:25 Dose: 1 mg Sodium Chloride (Normal Saline) 1,000 mls @ 999 mls/hr IV .Bolus ONE Stop: 01/15/17 11:49 Last Admin: 01/15/17 11:07 Dose: 999 mls/hr Ciprofloxacin/Dextrose 400 mg/ (Premix) 200 mls @ 200 mls/hr IV Q12H [facility] Last Admin: 01/15/17 14:39 Dose: 200 mls/hr Metronidazole 500 mg/ Premix 100 mls @ 100 mls/hr IV ONETIME ONE Stop: 01/15/17 14:16 Last Admin: 01/15/17 13:36 Dose: 100 mls/hr Iopamidol (Isovue-370 (76%)) 100 ml IVPUSH ONETIME STA Stop: 01/15/17 12:19 Last Admin: 01/15/17 12:19 Dose: 100 ml Ondansetron HCl (Zofran) 4 mg IVPUSH ONETIME ONE Stop: 01/15/17 10:56 Last Admin: 01/15/17 11:07 Dose: 4 mg - Exam General: Alert, Oriented, Cooperative, No Acute Distress HEENT: Pupils Equal, Pupils Reactive. No: Scleral Icterus Neck: Supple Lungs: Clear to Auscultation, Normal Respiratory Effort Cardiovascular: Regular Rate, Regular Rhythm. No: Tachycardia GI/Abdominal Exam: Normal Bowel Sounds, Soft, No Distention, Tender (Still tenderness to moderate palpation in the left lower quadrant. No masses noted.) . No: Guarding, Rigid, Rebound (Male) Exam: No Hernia (Joe) Back Exam: Normal Inspection Extremities: Normal Inspection, Normal Range of Motion Skin: Warm, Dry, Intact Neurological: No New Focal Deficit Psy/Mental Status: Alert, Normal Affect, Normal Mood Consult PN Assessment/Plan Procedures: Procedures ASSAY OF MAGNESIUM (11/03/16) ASSAY THYROID STIM HORMONE (11/03/16) COMPLETE CBC W/AUTO DIFF WBC (11/03/16) COMPREHEN METABOLIC PANEL (11/03/16) EMERGENCY DEPT VISIT (11/03/16) GLUCOSE BLOOD TEST (11/03/16) HYDRATE IV INFUSION ADD-ON (11/03/16) METABOLIC PANEL TOTAL CA (11/03/16) ROUTINE VENIPUNCTURE (11/03/16) THER/PROPH/DIAG IV INF ADDON (11/03/16) THER/PROPH/DIAG IV INF INIT (11/03/16) TX/PRO/DX INJ NEW DRUG ADDON (11/03/16) TX/PROPH/DG ADDL SEQ IV INF (11/03/16) URINALYSIS AUTO W/SCOPE (11/03/16) (1) Diverticulitis of large intestine with perforation without abscess or bleeding SNOMED Code(s): 3514443 Code(s): K57.20 - DVTRCLI OF LG INT W PERFORATION AND ABSCESS W/O BLEEDING Priority: High Current Visit: Yes Comment: There is no evidence of abscess at this time. There is an acute inflammatory process in the LLQ with a small amount of extraluminal air. Problem List Initiated/Reviewed/Updated: Yes Plan: Patient is feeling much better today. Pain is much less intense. He is again anxious to eat and requesting food. He has passed gas today and had a bowel movement. His white count is now under 6000. Recommendation: Full liquid diet. If he tolerates this. I think he could be discharged in the next 1-2 days. I think he should be discharged on oral antibiotics to complete 10-14 days of treatment.
--- NOTE | 2017-01-17 12:21 | CT ---
EXAM DATE: 01/15/17 PATIENT'S AGE: 31 Patient: ALLYN NELSON Facility: [place], [place] Site . Site : 1985 Study: CT Abdomen/Pelvis [id number]/12/2017 12:25:47 PM Ordering Physician: Rah Patel Final Report: INDICATION: Left lower quadrant abdominal pain. TECHNIQUE: CT abdomen and pelvis acquired with IV contrast. . COMPARISON: None FINDINGS: Lower chest: Minimal bilateral dependent opacities in the lungs. Liver: Unremarkable. Spleen: Normal. There is a splenule. Pancreas: Unremarkable. Gallbladder and bile ducts: Unremarkable. Kidneys: There are a couple of tiny bilateral low density renal lesions which are too small to characterize. No hydronephrosis in either kidney. Adrenal glands: Unremarkable. GI tract: There is colonic diverticulosis. There is wall thickening and pericolonic inflammatory fat stranding adjacent to the junction of the descending colon and sigmoid. There are small foci of extraluminal gas identified (images [id number]). No fluid collection identified. There is reactive wall thickening of adjacent small bowel loops (image 97). No evidence of obstruction. Sequelae of appendectomy noted. Vascular structures: No sign of aneurysm. Lymph nodes: Unremarkable. Miscellaneous: Trace free fluid in the pelvis noted. Small fat containing left inguinal hernia. Pelvic Organs: Unremarkable. Bones: There are bilateral pars defects at L5 with grade 1 anterior listhesis of L5 on S1. There is chronic mild compression deformity of the posterior inferior endplate of L5. IMPRESSION: 1. Acute diverticulitis at the junction of the descending colon and proximal sigmoid with evidence of micro perforation and localized extraluminal gas. No abscess. 2. Trace free fluid in the pelvis is reactive to #1. Dictated by Johnny Aviles MD @ 01/15/2017 1:08:48 PM Dictated by: Johnny Aviles MD @ 01/15/2017 13:09:13 (Electronic Signature) Report Signed by Proxy. HERNESTO
--- NOTE | 2017-01-17 18:46 | PCM.PN ---
- General Info Date of Service: 01/17/17 Subjective Update: She has been doing quite well since initially being admitted. He states that his abdominal pain is better. He did state that in the morning is about a 7 but now it is much better. Patient was seen by general surgeon who feels that the patient should be able to tolerate PO and is advancing his diet as tolerated. Patient was afebrile, no nausea or vomiting, no diarrhea or constipation, no other systemic finding aside from abdominal pain secondary to acute diverticulitis - Review of Systems General: Reports: Fatigue HEENT: Reports: No Symptoms Pulmonary: Reports: No Symptoms Cardiovascular: Reports: No Symptoms Gastrointestinal: Reports: Abdominal Pain Musculoskeletal: Reports: No Symptoms Neurological: Reports: No Symptoms Psychiatric: Reports: No Symptoms - Patient Data Vitals - Most Recent: Last Vital Signs Temp 36.4 C 01/17/17 16:00 Pulse 60 01/17/17 16:00 Resp 19 01/17/17 16:00 BP 117/70 01/17/17 16:00 Pulse Ox 97 01/17/17 16:00 Weight - Most Recent: 96.388 kg I&O - Last 24 Hours: Intake & Output 01/17/17 01/17/17 01/17/17 06:59 14:59 22:59 Intake Total 1300 1000 1700 Output Total 1100 550 Balance 200 1000 1150 Lab Results Last 24 Hours: Laboratory Results - last 24 hr 01/17/17 01/17/17 Range/Units 06:05 06:05 WBC 5.78 (4.0-11.0) K/uL RBC 4.32 L (4.50-5.90) M/uL Hgb 13.5 (13.0-17.0) g/dL Hct 38.5 (38.0-50.0) % MCV 89.1 (80.0-98.0) fL MCH 31.3 (27.0-32.0) pg MCHC 35.1 (31.0-37.0) g/dL RDW Std Deviation 39.3 (28.0-62.0) fl RDW Coeff of Enrrique 12 (11.0-15.0) % Plt Count 233 (150-400) K/uL MPV 9.70 (7.40-12.00) fL Neut % (Auto) 66.4 (48.0-80.0) % Lymph % (Auto) 20.2 (16.0-40.0) % [place] % (Auto) 9.3 (0.0-15.0) % Eos % (Auto) 3.6 (0.0-7.0) % Baso % (Auto) 0.5 (0.0-1.5) % Neut # (Auto) 3.8 (1.4-5.7) K/uL Lymph # (Auto) 1.2 (0.6-2.4) K/uL [place] # (Auto) 0.5 (0.0-0.8) K/uL Eos # (Auto) 0.2 (0.0-0.7) K/uL Baso # (Auto) 0.0 (0.0-0.1) K/uL Nucleated RBC % 1.3 /100WBC Nucleated RBCs # 0 K/uL Sodium 141 (136-146) mmol/L Potassium 4.2 (3.5-5.1) mmol/L Chloride 108 (98-110) mmol/L Carbon Dioxide 26 (21-31) mmol/L BUN 7 (6.0-23.0) mg/dL Creatinine 0.7 (0.6-1.5) mg/dL Est Cr Clr Drug Dosing 152.90 mL/min Estimated GFR (MDRD) > 60.0 ml/min Glucose 86 (60-110) mg/dL Calcium 8.3 L (8.8-10.8) mg/dL Iftikhar Results Last 24 Hours: Microbiology 01/17/17 10:55 Clostridium difficile Toxin A&B (M) - Final Stool / Feces - Stool, Formed Negative for C.Diff Toxin/AG 01/17/17 10:55 Campylobacter Antigen Assay - Final Stool / Feces - Stool, Formed NEGATIVE CAMPYLOBACTER AG 01/17/17 10:55 Stool for WBCs - Final Stool / Feces - Stool, Formed POSITIVE FOR WBC'S Med Orders - Current: Current Medications Hydrocodone Bitart/Acetaminophen ([place] 325-5 Mg) 1 tab PO Q6H PRN PRN Reason: Pain Enoxaparin Sodium (Lovenox) 40 mg SUBCUT DAILY [facility] Last Admin: 01/17/17 08:12 Dose: 40 mg Sodium Chloride (Normal Saline) 1,000 mls @ 150 mls/hr IV ASDIRECTED [facility] Last Admin: 01/17/17 18:11 Dose: 150 mls/hr Ciprofloxacin/Dextrose 400 mg/ (Premix) 200 mls @ 200 mls/hr IV Q12H [facility] Last Admin: 01/17/17 15:01 Dose: 200 mls/hr Metronidazole 500 mg/ Premix 100 mls @ 100 mls/hr IV Q8HR [facility] Last Admin: 01/17/17 13:53 Dose: 100 mls/hr Ondansetron HCl (Zofran) 4 mg IVPUSH Q4H PRN PRN Reason: Nausea/Vomiting Last Admin: 01/16/17 00:00 Dose: 4 mg Sodium Chloride (Saline Flush) 10 ml FLUSH ASDIRECTED PRN PRN Reason: Keep Vein Open Sodium Chloride (Saline Flush) 2.5 ml FLUSH ASDIRECTED PRN PRN Reason: Keep Vein Open Sodium Chloride (Saline Flush) 10 ml FLUSH ASDIRECTED PRN PRN Reason: Keep Vein Open Sodium Chloride (Saline Flush) 2.5 ml FLUSH ASDIRECTED PRN PRN Reason: Keep Vein Open Discontinued Medications Hydromorphone HCl (Dilaudid) 0.5 mg IVPUSH Q1H PRN PRN Reason: Pain Last Admin: 01/15/17 13:36 Dose: 0.5 mg Hydromorphone HCl (Dilaudid) 0.5 mg IVPUSH Q1H PRN PRN Reason: Pain Last Admin: 01/16/17 15:18 Dose: 0.5 mg Hydromorphone HCl (Dilaudid) 1 mg IVPUSH Q2H PRN PRN Reason: Pain (severe 7-10) Last Admin: 01/15/17 17:25 Dose: 1 mg Hydromorphone HCl (Dilaudid) 1 mg IVPUSH Q2H PRN PRN Reason: Pain (severe 7-10) Last Admin: 01/17/17 15:01 Dose: 1 mg Sodium Chloride (Normal Saline) 1,000 mls @ 999 mls/hr IV .Bolus ONE Stop: 01/15/17 11:49 Last Admin: 01/15/17 11:07 Dose: 999 mls/hr Ciprofloxacin/Dextrose 400 mg/ (Premix) 200 mls @ 200 mls/hr IV Q12H [facility] Last Admin: 01/15/17 14:39 Dose: 200 mls/hr Metronidazole 500 mg/ Premix 100 mls @ 100 mls/hr IV ONETIME ONE Stop: 01/15/17 14:16 Last Admin: 01/15/17 13:36 Dose: 100 mls/hr Iopamidol (Isovue-370 (76%)) 100 ml IVPUSH ONETIME STA Stop: 01/15/17 12:19 Last Admin: 01/15/17 12:19 Dose: 100 ml Ondansetron HCl (Zofran) 4 mg IVPUSH ONETIME ONE Stop: 01/15/17 10:56 Last Admin: 01/15/17 11:07 Dose: 4 mg - Exam General: Alert, Oriented HEENT: Pupils Equal Neck: Supple, Trachea Midline Lungs: Clear to Auscultation, Normal Respiratory Effort Cardiovascular: Regular Rate, Regular Rhythm GI/Abdominal Exam: Normal Bowel Sounds, Guarding, Rigid, Tender - Problem List Review Problem List Initiated/Reviewed/Updated: Yes - My Orders Last 24 Hours: My Active Orders 01/17/17 10:55 CULTURE STOOL + CAMPY+SHIGATOX [RM] Stat 01/17/17 Breakfast Full Liquid Diet [DIET] - Plan Plan:: Assessment and plan 31 yo male with acute diverticulitis with microperforation nightly being followed by hospitalist and general surgery. -Since the patient is doing better we will advance the patient's diet to orals as tolerated - Will continue IV fluids, and ciprofloxacin and Flagyl. - We should transition the patient to oral pain medication -If the patient progressively get better possible discharge soon
[2017-01-17] MEDS ORDERED: Sodium Chloride 0.9% 1,000 ML IV SCH (20:00)
[2017-01-17] MEDS: Acetaminophen/HYDROcodone 325-5 MG Tab PO PRN (20:30)
[2017-01-18] MEDS: Ciprofloxacin in D5W 400 MG in Premix Bag 1 BAG IV SCH ×4 (02:21→13:59)
[2017-01-18 05:17] LABS: CHLORIDE,CL 107 mmol/L (98-110); SODIUM,NA 141 mmol/L (136-146)
[2017-01-18] MEDS: metroNIDAZOLE/Normal Saline 500 MG in Premix Bag 1 BAG IV SCH ×3 (05:24→13:57)
[2017-01-18] MEDS: Acetaminophen/HYDROcodone 325-5 MG Tab PO PRN (08:52)
[2017-01-18] MEDS: Enoxaparin 40 MG/0.4 ML Syringe SUBCUT SCH ×2 (08:53→09:01)
[2017-01-18 12:17] VITALS: BP 140/72
--- NOTE | 2017-01-18 15:24 | PCM.SURGPN ---
- General Info Date of Service: 01/18/17 Post-Op Diagnosis: diverticulitis w microperf - Review of Systems General: Reports: No Symptoms (tolerate po diet,and pain is in good control, and much better) - Patient Data Vitals - Most Recent: Last Vital Signs Temp 96.5 F 01/18/17 12:00 Pulse 68 01/18/17 12:00 Resp 18 01/18/17 12:00 BP 140/72 01/18/17 12:00 Pulse Ox 99 01/18/17 14:00 Weight - Most Recent: 212 lb 8 oz I&O - Last 24 Hours: Intake & Output 01/18/17 01/18/17 01/18/17 06:59 14:59 22:59 Intake Total 1120 Output Total 600 Balance 520 Lab Results Last 24 Hrs: Laboratory Results - last 24 hr 01/18/17 01/18/17 Range/Units 04:30 04:30 WBC 5.42 (4.0-11.0) K/uL RBC 4.42 L (4.50-5.90) M/uL Hgb 13.4 (13.0-17.0) g/dL Hct 39.3 (38.0-50.0) % MCV 88.9 (80.0-98.0) fL MCH 30.3 (27.0-32.0) pg MCHC 34.1 (31.0-37.0) g/dL RDW Std Deviation 39.3 (28.0-62.0) fl RDW Coeff of Enrrique 12 (11.0-15.0) % Plt Count 243 (150-400) K/uL MPV 9.60 (7.40-12.00) fL Neut % (Auto) 63.6 (48.0-80.0) % Lymph % (Auto) 19.9 (16.0-40.0) % [place] % (Auto) 11.4 (0.0-15.0) % Eos % (Auto) 4.2 (0.0-7.0) % Baso % (Auto) 0.9 (0.0-1.5) % Neut # (Auto) 3.4 (1.4-5.7) K/uL Lymph # (Auto) 1.1 (0.6-2.4) K/uL [place] # (Auto) 0.6 (0.0-0.8) K/uL Eos # (Auto) 0.2 (0.0-0.7) K/uL Baso # (Auto) 0.1 (0.0-0.1) K/uL Nucleated RBC % 0.0 /100WBC Nucleated RBCs # 0 K/uL Sodium 141 (136-146) mmol/L Potassium 4.3 (3.5-5.1) mmol/L Chloride 107 (98-110) mmol/L Carbon Dioxide 27 (21-31) mmol/L BUN 6 (6.0-23.0) mg/dL Creatinine 0.7 (0.6-1.5) mg/dL Est Cr Clr Drug Dosing 152.90 mL/min Estimated GFR (MDRD) > 60.0 ml/min Glucose 101 (60-110) mg/dL Calcium 8.9 (8.8-10.8) mg/dL Total Bilirubin 0.8 (0.1-1.5) mg/dL AST 17 (5-40) IU/L ALT 14 (8-54) IU/L Alkaline Phosphatase 55 (40-150) Total Protein 6.3 (6.0-8.0) g/dL Albumin 3.6 (3.5-5.0) g/dL Globulin 2.7 (2.0-3.5) g/dL Albumin/Globulin Ratio 1.3 (1.3-2.8) Iftikhar Results Last 24 Hrs: Microbiology 01/17/17 10:55 Campylobacter Antigen Assay - Final Stool / Feces - Stool, Formed NEGATIVE CAMPYLOBACTER AG - Final NEGATIVE FOR SHIGA TOXIN 1 - Final NEGATIVE FOR SHIGA TOXIN 2 01/17/17 10:55 Clostridium difficile Toxin A&B (M) - Final Stool / Feces - Stool, Formed Negative for C.Diff Toxin/AG 01/17/17 10:55 Stool for WBCs - Final Stool / Feces - Stool, Formed POSITIVE FOR WBC'S Med Orders - Current: Current Medications Hydrocodone Bitart/Acetaminophen ([place] 325-5 Mg) 1 tab PO Q6H PRN PRN Reason: Pain Last Admin: 01/18/17 08:52 Dose: 1 tab Enoxaparin Sodium (Lovenox) 40 mg SUBCUT DAILY [facility] Last Admin: 01/18/17 09:01 Dose: Not Given Ciprofloxacin/Dextrose 400 mg/ (Premix) 200 mls @ 200 mls/hr IV Q12H [facility] Last Admin: 01/18/17 13:59 Dose: Not Given Metronidazole 500 mg/ Premix 100 mls @ 100 mls/hr IV Q8HR [facility] Last Admin: 01/18/17 13:57 Dose: Not Given Sodium Chloride (Normal Saline) 1,000 mls @ 75 mls/hr IV ASDIRECTED [facility] Last Admin: 01/18/17 08:53 Dose: 75 mls/hr Ondansetron HCl (Zofran) 4 mg IVPUSH Q4H PRN PRN Reason: Nausea/Vomiting Last Admin: 01/16/17 00:00 Dose: 4 mg Sodium Chloride (Saline Flush) 10 ml FLUSH ASDIRECTED PRN PRN Reason: Keep Vein Open Sodium Chloride (Saline Flush) 2.5 ml FLUSH ASDIRECTED PRN PRN Reason: Keep Vein Open Sodium Chloride (Saline Flush) 10 ml FLUSH ASDIRECTED PRN PRN Reason: Keep Vein Open Sodium Chloride (Saline Flush) 2.5 ml FLUSH ASDIRECTED PRN PRN Reason: Keep Vein Open Discontinued Medications Hydromorphone HCl (Dilaudid) 0.5 mg IVPUSH Q1H PRN PRN Reason: Pain Last Admin: 01/15/17 13:36 Dose: 0.5 mg Hydromorphone HCl (Dilaudid) 0.5 mg IVPUSH Q1H PRN PRN Reason: Pain Last Admin: 01/16/17 15:18 Dose: 0.5 mg Hydromorphone HCl (Dilaudid) 1 mg IVPUSH Q2H PRN PRN Reason: Pain (severe 7-10) Last Admin: 01/15/17 17:25 Dose: 1 mg Hydromorphone HCl (Dilaudid) 1 mg IVPUSH Q2H PRN PRN Reason: Pain (severe 7-10) Last Admin: 01/17/17 15:01 Dose: 1 mg Sodium Chloride (Normal Saline) 1,000 mls @ 999 mls/hr IV .Bolus ONE Stop: 01/15/17 11:49 Last Admin: 01/15/17 11:07 Dose: 999 mls/hr Ciprofloxacin/Dextrose 400 mg/ (Premix) 200 mls @ 200 mls/hr IV Q12H [facility] Last Admin: 01/15/17 14:39 Dose: 200 mls/hr Metronidazole 500 mg/ Premix 100 mls @ 100 mls/hr IV ONETIME ONE Stop: 01/15/17 14:16 Last Admin: 01/15/17 13:36 Dose: 100 mls/hr Sodium Chloride (Normal Saline) 1,000 mls @ 75 mls/hr IV ASDIRECTED [facility] Last Admin: 01/17/17 18:11 Dose: 150 mls/hr Iopamidol (Isovue-370 (76%)) 100 ml IVPUSH ONETIME STA Stop: 01/15/17 12:19 Last Admin: 01/15/17 12:19 Dose: 100 ml Ondansetron HCl (Zofran) 4 mg IVPUSH ONETIME ONE Stop: 01/15/17 10:56 Last Admin: 01/15/17 11:07 Dose: 4 mg - Exam General: Alert, Oriented GI/Abdominal Exam: Soft (almost nontender upon palpation) - Problem List Review Problem List Initiated/Reviewed/Updated: Yes - My Orders Last 24 Hours: Active Orders 24 hr Category Date Time Status Ready for Discharge [RC] PER UNIT ROUTINE Care 01/18/17 14:10 Active Regular Diet [DIET] Diet 01/18/17 Lunch Active Acetaminophen/HYDROcodone [[place] 325-5 MG] Med 01/17/17 16:37 Active 1 tab PO Q6H PRN Sodium Chloride 0.9% [Normal Saline] 1,000 ml Med 01/17/17 20:00 Active IV ASDIRECTED Medication Orders Hydrocodone Bitart/Acetaminophen ([place] 325-5 Mg) 1 tab PO Q6H PRN PRN Reason: Pain Last Admin: 01/18/17 08:52 Dose: 1 tab Admin: 01/17/17 20:30 Dose: 1 tab Enoxaparin Sodium (Lovenox) 40 mg SUBCUT DAILY [facility] Last Admin: 01/18/17 09:01 Dose: Not Given Admin: 01/17/17 08:12 Dose: 40 mg Admin: 01/16/17 08:25 Dose: 40 mg Admin: 01/15/17 15:15 Dose: 40 mg Ciprofloxacin/Dextrose 400 mg/ (Premix) 200 mls @ 200 mls/hr IV Q12H [facility] Last Admin: 01/18/17 13:59 Dose: Admin: 01/18/17 02:21 Dose: 200 mls/hr Infusion: 01/17/17 16:01 Dose: 200 mls/hr Admin: 01/17/17 15:01 Dose: 200 mls/hr Infusion: 01/17/17 02:52 Dose: 200 mls/hr Admin: 01/17/17 01:52 Dose: 200 mls/hr Infusion: 01/16/17 15:46 Dose: 200 mls/hr Admin: 01/16/17 14:46 Dose: 200 mls/hr Infusion: 01/16/17 03:07 Dose: 200 mls/hr Admin: 01/16/17 02:07 Dose: 200 mls/hr Admin: 01/15/17 14:56 Dose: Not Given Metronidazole 500 mg/ Premix 100 mls @ 100 mls/hr IV Q8HR [facility] Last Admin: 01/18/17 13:57 Dose: Infusion: 01/18/17 06:24 Dose: 100 mls/hr Admin: 01/18/17 05:24 Dose: 100 mls/hr Infusion: 01/17/17 22:04 Dose: 100 mls/hr Admin: 01/17/17 21:04 Dose: 100 mls/hr Infusion: 01/17/17 14:53 Dose: 100 mls/hr Admin: 01/17/17 13:53 Dose: 100 mls/hr Infusion: 01/17/17 06:24 Dose: 100 mls/hr Admin: 01/17/17 05:24 Dose: 100 mls/hr Infusion: 01/16/17 22:09 Dose: 100 mls/hr Admin: 01/16/17 21:09 Dose: 100 mls/hr Infusion: 01/16/17 14:20 Dose: 100 mls/hr Admin: 01/16/17 13:20 Dose: 100 mls/hr Infusion: 01/16/17 06:58 Dose: 100 mls/hr Admin: 01/16/17 05:58 Dose: 100 mls/hr Infusion: 01/15/17 22:18 Dose: 100 mls/hr Admin: 01/15/17 21:18 Dose: 100 mls/hr Sodium Chloride (Normal Saline) 1,000 mls @ 75 mls/hr IV ASDIRECTED [facility] Last Admin: 01/18/17 08:53 Dose: 75 mls/hr Ondansetron HCl (Zofran) 4 mg IVPUSH Q4H PRN PRN Reason: Nausea/Vomiting Last Admin: 01/16/17 00:00 Dose: 4 mg Sodium Chloride (Saline Flush) 10 ml FLUSH ASDIRECTED PRN PRN Reason: Keep Vein Open Sodium Chloride (Saline Flush) 2.5 ml FLUSH ASDIRECTED PRN PRN Reason: Keep Vein Open Sodium Chloride (Saline Flush) 10 ml FLUSH ASDIRECTED PRN PRN Reason: Keep Vein Open Sodium Chloride (Saline Flush) 2.5 ml FLUSH ASDIRECTED PRN PRN Reason: Keep Vein Open - Assessment Assessment (Free Text/Narrative):: responded well to iv abx; would continue present treatment, and likely home tomorrow morning on po cipro/flagyl X 2 wk; continue to follow w you - Plan Plan (Free Text/Narrative):: responded well to iv abx; would continue present treatment, and likely home tomorrow morning on po cipro/flagyl X 2 wk; continue to follow w you
--- NOTE | 2017-01-25 10:28 | PCM.DCSUM1 ---
<Michel Bonner Z - Last Filed: 01/25/17 10:21> Discharge Summary - Hospital Course Free Text/Narrative:: Discharge Summary Date of admission: 01/15/2017 Date of discharge: 01/20/2017 Admitting diagnosis: #1. Due to abdominal pain secondary to acute diverticulitis with microperforation #2. Leukocytosis with neutrophilic shift #3. Elevated bilirubin level #4. #5. Discharge diagnoses: #1. Acute diverticulosis with microperforation now stable patient on ciprofloxacin and Flagyl #2. Abdominal pain now resolved #3. #4. #5. Consultations: Gen. surgery Procedures: None Hospitalization course: Patient was admitted on October 15, 2016 secondary to severe abdominal pain after imaging was found that the patient had an acute diverticulitis with microperforation. Since there was no major complications we treated this as an uncomplicated acute diverticulitis episode. Patient was given IV opioids for pain control. Patient was put on IV Flagyl and ciprofloxacin for antibiotic coverage. Patient was made nothing by mouth and given IV fluids. General surgery was consulted who agreed with the recommendations and did not feel any surgical intervention was needed. The patient progressively got better his WBC count came down, his pain control was more stabilized and as a result he was able to tolerate the progression of his diet and by 01/20/2017 the patient was taking full by mouth, ambulating appropriately, denying nausea vomiting diarrhea constipation, his abdominal pain had resolved and he was ready to go home. Disposition on discharge: Home Condition on discharge: Stable, tolerating by mouth, no abdominal pain, no nausea vomiting diarrhea constipation Discharge medications: Oral Flagyl, oral Cipro, [place] for 3 days. As well as continuation of home medication Follow-up instructions: Patient to follow-up with PCP Dr. Bonner as well as general surgery. - Discharge Data Discharge Date: 01/20/17 Discharge Disposition: Home, Self-Care 01 Condition: Fair - Patient Summary/Data Consults: Consultations 01/15/17 14:17 Consult to Physician [CONS] Stat - Patient Instructions Diet: Regular Diet as Tolerated Activity: Rest and Relax Today Driving: Do Not Drive Showering/Bathing: May Shower Notify Provider of: Fever, Increased Pain, Swelling and Redness, Nausea and/or Vomiting - Discharge Plan Prescriptions/Med Rec: Ciprofloxacin HCl 750 mg PO BID #20 tablet metroNIDAZOLE [Metronidazole] 500 mg PO TID #30 tablet Home Medications: Home Meds Acetaminophen/HYDROcodone [[place] 325-5 MG] 1 tab PO Q6H PRN #5 tablet 01/18/17 [ Rx] Ciprofloxacin HCl 750 mg PO BID #20 tablet 01/18/17 [Rx] metroNIDAZOLE [Metronidazole] 500 mg PO TID #30 tablet 01/18/17 [Rx] Patient Handouts: Diverticulitis, [id number], Ciprofloxacin tablets, Metronidazole tablets or capsules Referrals: Tushar Hansen MD [Physician] - 02/15/17 2:00 pm (Please check in at 1:45 p.m. ) - Discharge Summary/Plan Comment DC Time >30 min.: No - Patient Data Vitals - Most Recent: Last Vital Signs Temp 35.8 C 01/18/17 12:00 Pulse 68 01/18/17 12:00 Resp 18 01/18/17 12:00 BP 140/72 01/18/17 12:00 Pulse Ox 99 01/18/17 14:00 Weight - Most Recent: 96.388 kg Med Orders - Current: Current Medications Discontinued Medications Hydrocodone Bitart/Acetaminophen ([place] 325-5 Mg) 1 tab PO Q6H PRN PRN Reason: Pain Last Admin: 01/18/17 08:52 Dose: 1 tab Enoxaparin Sodium (Lovenox) 40 mg SUBCUT DAILY [facility] Last Admin: 01/18/17 09:01 Dose: Not Given Hydromorphone HCl (Dilaudid) 0.5 mg IVPUSH Q1H PRN PRN Reason: Pain Last Admin: 01/15/17 13:36 Dose: 0.5 mg Hydromorphone HCl (Dilaudid) 0.5 mg IVPUSH Q1H PRN PRN Reason: Pain Last Admin: 01/16/17 15:18 Dose: 0.5 mg Hydromorphone HCl (Dilaudid) 1 mg IVPUSH Q2H PRN PRN Reason: Pain (severe 7-10) Last Admin: 01/15/17 17:25 Dose: 1 mg Hydromorphone HCl (Dilaudid) 1 mg IVPUSH Q2H PRN PRN Reason: Pain (severe 7-10) Last Admin: 01/17/17 15:01 Dose: 1 mg Sodium Chloride (Normal Saline) 1,000 mls @ 999 mls/hr IV .Bolus ONE Stop: 01/15/17 11:49 Last Admin: 01/15/17 11:07 Dose: 999 mls/hr Ciprofloxacin/Dextrose 400 mg/ (Premix) 200 mls @ 200 mls/hr IV Q12H [facility] Last Admin: 01/15/17 14:39 Dose: 200 mls/hr Metronidazole 500 mg/ Premix 100 mls @ 100 mls/hr IV ONETIME ONE Stop: 01/15/17 14:16 Last Admin: 01/15/17 13:36 Dose: 100 mls/hr Sodium Chloride (Normal Saline) 1,000 mls @ 75 mls/hr IV ASDIRECTED [facility] Last Admin: 01/17/17 18:11 Dose: 150 mls/hr Ciprofloxacin/Dextrose 400 mg/ (Premix) 200 mls @ 200 mls/hr IV Q12H [facility] Last Admin: 01/18/17 13:59 Dose: Not Given Metronidazole 500 mg/ Premix 100 mls @ 100 mls/hr IV Q8HR [facility] Last Admin: 01/18/17 13:57 Dose: Not Given Sodium Chloride (Normal Saline) 1,000 mls @ 75 mls/hr IV ASDIRECTED [facility] Last Admin: 01/18/17 08:53 Dose: 75 mls/hr Iopamidol (Isovue-370 (76%)) 100 ml IVPUSH ONETIME STA Stop: 01/15/17 12:19 Last Admin: 01/15/17 12:19 Dose: 100 ml Ondansetron HCl (Zofran) 4 mg IVPUSH ONETIME ONE Stop: 01/15/17 10:56 Last Admin: 01/15/17 11:07 Dose: 4 mg Ondansetron HCl (Zofran) 4 mg IVPUSH Q4H PRN PRN Reason: Nausea/Vomiting Last Admin: 01/16/17 00:00 Dose: 4 mg Sodium Chloride (Saline Flush) 10 ml FLUSH ASDIRECTED PRN PRN Reason: Keep Vein Open Sodium Chloride (Saline Flush) 2.5 ml FLUSH ASDIRECTED PRN PRN Reason: Keep Vein Open Sodium Chloride (Saline Flush) 10 ml FLUSH ASDIRECTED PRN PRN Reason: Keep Vein Open Sodium Chloride (Saline Flush) 2.5 ml FLUSH ASDIRECTED PRN PRN Reason: Keep Vein Open <Ayan Espinoza - Last Filed: 01/27/17 08:20> Discharge Summary - Hospital Course Free Text/Narrative:: I was present with the resident during history and examination. I discussed the case with the resident and agree with the findings and plan as documented in the residents note. - Patient Summary/Data Consults: Consultations 01/15/17 14:17 Consult to Physician [CONS] Stat - Patient Data Vitals - Most Recent: Last Vital Signs Temp 35.8 C 01/18/17 12:00 Pulse 68 01/18/17 12:00 Resp 18 01/18/17 12:00 BP 140/72 01/18/17 12:00 Pulse Ox 99 01/18/17 14:00 Med Orders - Current: Current Medications Discontinued Medications Hydrocodone Bitart/Acetaminophen ([place] 325-5 Mg) 1 tab PO Q6H PRN PRN Reason: Pain Last Admin: 01/18/17 08:52 Dose: 1 tab Enoxaparin Sodium (Lovenox) 40 mg SUBCUT DAILY [facility] Last Admin: 01/18/17 09:01 Dose: Not Given Hydromorphone HCl (Dilaudid) 0.5 mg IVPUSH Q1H PRN PRN Reason: Pain Last Admin: 01/15/17 13:36 Dose: 0.5 mg Hydromorphone HCl (Dilaudid) 0.5 mg IVPUSH Q1H PRN PRN Reason: Pain Last Admin: 01/16/17 15:18 Dose: 0.5 mg Hydromorphone HCl (Dilaudid) 1 mg IVPUSH Q2H PRN PRN Reason: Pain (severe 7-10) Last Admin: 01/15/17 17:25 Dose: 1 mg Hydromorphone HCl (Dilaudid) 1 mg IVPUSH Q2H PRN PRN Reason: Pain (severe 7-10) Last Admin: 01/17/17 15:01 Dose: 1 mg Sodium Chloride (Normal Saline) 1,000 mls @ 999 mls/hr IV .Bolus ONE Stop: 01/15/17 11:49 Last Admin: 01/15/17 11:07 Dose: 999 mls/hr Ciprofloxacin/Dextrose 400 mg/ (Premix) 200 mls @ 200 mls/hr IV Q12H [facility] Last Admin: 01/15/17 14:39 Dose: 200 mls/hr Metronidazole 500 mg/ Premix 100 mls @ 100 mls/hr IV ONETIME ONE Stop: 01/15/17 14:16 Last Admin: 01/15/17 13:36 Dose: 100 mls/hr Sodium Chloride (Normal Saline) 1,000 mls @ 75 mls/hr IV ASDIRECTED [facility] Last Admin: 01/17/17 18:11 Dose: 150 mls/hr Ciprofloxacin/Dextrose 400 mg/ (Premix) 200 mls @ 200 mls/hr IV Q12H [facility] Last Admin: 01/18/17 13:59 Dose: Not Given Metronidazole 500 mg/ Premix 100 mls @ 100 mls/hr IV Q8HR [facility] Last Admin: 01/18/17 13:57 Dose: Not Given Sodium Chloride (Normal Saline) 1,000 mls @ 75 mls/hr IV ASDIRECTED [facility] Last Admin: 01/18/17 08:53 Dose: 75 mls/hr Iopamidol (Isovue-370 (76%)) 100 ml IVPUSH ONETIME STA Stop: 01/15/17 12:19 Last Admin: 01/15/17 12:19 Dose: 100 ml Ondansetron HCl (Zofran) 4 mg IVPUSH ONETIME ONE Stop: 01/15/17 10:56 Last Admin: 01/15/17 11:07 Dose: 4 mg Ondansetron HCl (Zofran) 4 mg IVPUSH Q4H PRN PRN Reason: Nausea/Vomiting Last Admin: 01/16/17 00:00 Dose: 4 mg Sodium Chloride (Saline Flush) 10 ml FLUSH ASDIRECTED PRN PRN Reason: Keep Vein Open Sodium Chloride (Saline Flush) 2.5 ml FLUSH ASDIRECTED PRN PRN Reason: Keep Vein Open Sodium Chloride (Saline Flush) 10 ml FLUSH ASDIRECTED PRN PRN Reason: Keep Vein Open Sodium Chloride (Saline Flush) 2.5 ml FLUSH ASDIRECTED PRN PRN Reason: Keep Vein Open *Q Meaningful Use (DIS) - VTE *Q VTE Criteria *Q: - Stroke *Q Stroke Criteria *Q: - AMI *Q AMI Criteria *Q:
--- NOTE | 2017-02-22 07:23 | EDM.PDOC ---
ED HPI GENERAL MEDICAL PROBLEM - General Chief Complaint: Abdominal Pain Stated Complaint: ABD PAIN Time Seen by Provider: 01/15/17 10:44 Source of Information: Reports: Patient History Limitations: Reports: No Limitations - History of Present Illness INITIAL COMMENTS - FREE TEXT/NARRATIVE: History of present illness: []Patient began having lower abdominal pain 2 days ago that has progressively worsened. He states he's had 2 episodes of this in the past but did not seek medical care. Patient has had an appendectomy in the remote past. Patient has had 2 episodes of watery diarrhea, nausea, vomiting denies any fevers. He initially thought he may have pulled a muscle while working. Review of systems: As per history of present illness and below otherwise all systems reviewed and negative. Past medical history: As per history of present illness and as reviewed below otherwise noncontributory. Surgical history: As per history of present illness and as reviewed below otherwise noncontributory. Social history: No reported history of drug or alcohol abuse. Family history: As per history of present illness and as reviewed below otherwise noncontributory. Physical exam: General: Well developed, well nourished in NAD HEENT: Atraumatic, normocephalic, pupils reactive, negative for conjunctival pallor or scleral icterus, mucous membranes moist, throat clear, neck supple, nontender, trachea midline. Lungs: Clear to auscultation, breath sounds equal bilaterally, chest nontender. Heart: S1S2, regular, negative for clicks, rubs, or JVD. Abdomen: Decreased bowel sounds, lower abdominal tenderness with voluntary guarding without rebound . Negative for masses or hepatosplenomegaly. Negative for costovertebral tenderness. Pelvis: Stable nontender. Genitourinary: Deferred. Rectal: Deferred. Extremities: Atraumatic, negative for cords or calf pain. Neurovascular unremarkable. Neuro: Awake, alert, oriented. Cranial nerves II through XII unremarkable. Cerebellum unremarkable. Motor and sensory unremarkable throughout. Exam nonfocal. Diagnostics: []Patient had an elevated white count CT was done that showed acute diverticulitis with microperforation and trace free fluid in the pelvis. Therapeutics: []She was hydrated given pain meds and bionics begun in the ED Impression: []Acute diverticulitis with micro- perforation Plan: []Admit to hospitalist surgical consult requested in the ED Definitive disposition and diagnosis as appropriate pending reevaluation and review of above. Onset: Sudden Onset Date: 01/11/17 Duration: Getting Worse Location: Reports: Abdomen Quality: Reports: Ache, Pressure Severity: Severe Improves with: Reports: Rest Worsens with: Reports: Movement Associated Symptoms: Reports: Fever/Chills, Loss of Appetite, Malaise, Nausea/ Vomiting LLQ Pain Score (Numeric/FACES): 7 - Related Data Allergies Allergy/AdvReac Type Severity Reaction Status Date / Time No Known Allergies Allergy Verified 01/15/17 10:52 Home Meds: Home Meds Acetaminophen/HYDROcodone [[place] 325-5 MG] 1 tab PO Q6H PRN #5 tablet 01/18/17 [ Rx] Ciprofloxacin HCl 750 mg PO BID #20 tablet 01/18/17 [Rx] metroNIDAZOLE [Metronidazole] 500 mg PO TID #30 tablet 01/18/17 [Rx] Past Medical History - Past Health History Medical/Surgical History: Denies Medical/Surgical History - Past Surgical History GI Surgical History: Reports: Appendectomy Social & Family History - Family History Family Medical History: Noncontributory - Tobacco Use Smoking Status *Q: Never Smoker Second Hand Smoke Exposure: No - Caffeine Use Caffeine Use: Reports: None - Recreational Drug Use Recreational Drug Use: No ED ROS GENERAL - Review of Systems Review Of Systems: See Below (See history of present illness) ED EXAM, GI/ABD - Physical Exam Exam: See Below (See history of present illness) Course - Vital Signs Last Recorded V/S: Last Vital Signs Temp 35.8 C 01/18/17 12:00 Pulse 68 01/18/17 12:00 Resp 18 01/18/17 12:00 BP 140/72 01/18/17 12:00 Pulse Ox 99 01/18/17 14:00 - Orders/Labs/Meds Labs: Laboratory Tests 01/15/17 01/15/17 01/15/17 Range/Units 11:06 11:06 11:06 WBC 13.79 H (4.0-11.0) K/uL RBC 4.49 L (4.50-5.90) M/uL Hgb 13.9 (13.0-17.0) g/dL Hct 39.7 (38.0-50.0) % MCV 88.4 (80.0-98.0) fL MCH 31.0 (27.0-32.0) pg MCHC 35.0 (31.0-37.0) g/dL RDW Std Deviation 40.3 (28.0-62.0) fl RDW Coeff of Enrrique 13 (11.0-15.0) % Plt Count 195 (150-400) K/uL MPV 9.90 (7.40-12.00) fL Neut % (Auto) 83.7 H (48.0-80.0) % Lymph % (Auto) 9.0 L (16.0-40.0) % Ray % (Auto) 7.1 (0.0-15.0) % Eos % (Auto) 0.1 (0.0-7.0) % Baso % (Auto) 0.1 (0.0-1.5) % Neut # (Auto) 11.5 H (1.4-5.7) K/uL Lymph # (Auto) 1.2 (0.6-2.4) K/uL Ray # (Auto) 1.0 H (0.0-0.8) K/uL Eos # (Auto) 0.0 (0.0-0.7) K/uL Baso # (Auto) 0.0 (0.0-0.1) K/uL Nucleated RBC % 0.0 /100WBC Nucleated RBCs # 0 K/uL Sodium 136 (136-146) mmol/L Potassium 3.7 (3.5-5.1) mmol/L Chloride 102 (98-110) mmol/L Carbon Dioxide 23 (21-31) mmol/L BUN 13 (6.0-23.0) mg/dL Creatinine 0.8 (0.6-1.5) mg/dL Est Cr Clr Drug Dosing 133.79 mL/min Estimated GFR (MDRD) > 60.0 ml/min Glucose 106 (60-110) mg/dL Calcium 9.0 (8.8-10.8) mg/dL Magnesium 2.1 (1.5-2.3) mEq/L Total Bilirubin 2.8 H (0.1-1.5) mg/dL AST 18 (5-40) IU/L ALT 20 (8-54) IU/L Alkaline Phosphatase 65 (40-150) Total Protein 7.9 (6.0-8.0) g/dL Albumin 4.2 (3.5-5.0) g/dL Globulin 3.7 H (2.0-3.5) g/dL Albumin/Globulin Ratio 1.1 L (1.3-2.8) Lipase 37 (7-80) U/L Meds: Medications Discontinued Medications Generic Name Dose Route Start Last Admin Trade Name Freq PRN Reason Stop Dose Admin Hydrocodone Bitart/Acetaminophen 1 tab 01/17/17 16:37 01/18/17 08:52 [place] 325-5 Mg PO 1 tab Q6H PRN Administration Pain Enoxaparin Sodium 40 mg 01/15/17 14:15 01/18/17 09:01 Lovenox SUBCUT Not Given DAILY VERNELL Hydromorphone HCl 0.5 mg 01/15/17 10:55 01/15/17 13:36 Dilaudid IVPUSH 0.5 mg Q1H PRN Administration Pain Hydromorphone HCl 0.5 mg 01/15/17 13:28 01/16/17 15:18 Dilaudid IVPUSH 0.5 mg Q1H PRN Administration Pain Hydromorphone HCl 1 mg 01/15/17 14:02 01/15/17 17:25 Dilaudid IVPUSH 1 mg Q2H PRN Administration Pain (severe 7-10) Hydromorphone HCl 1 mg 01/15/17 20:47 01/17/17 15:01 Dilaudid IVPUSH 1 mg Q2H PRN Administration Pain (severe 7-10) Sodium Chloride 1,000 mls @ 999 mls/hr 01/15/17 10:49 01/15/17 11:07 Normal Saline IV 01/15/17 11:49 999 mls/hr .Bolus ONE Administration Ciprofloxacin/Dextrose 400 mg/ 200 mls @ 200 mls/hr 01/15/17 13:30 01/15/17 14:39 Premix IV 200 mls/hr Q12H VERNELL Administration Metronidazole 500 mg/ Premix 100 mls @ 100 mls/hr 01/15/17 13:17 01/15/17 13: 36 IV 01/15/17 14:16 100 mls/hr ONETIME ONE Administration Sodium Chloride 1,000 mls @ 75 mls/hr 01/15/17 14:15 01/17/17 18:11 Normal Saline IV 150 mls/hr ASDIRECTED VERNELL Administration Ciprofloxacin/Dextrose 400 mg/ 200 mls @ 200 mls/hr 01/15/17 14:15 01/18/17 13:59 Premix IV Not Given Q12H VERNELL Metronidazole 500 mg/ Premix 100 mls @ 100 mls/hr 01/15/17 22:00 01/18/17 13: 57 IV Not Given Q8HR VERNELL Sodium Chloride 1,000 mls @ 75 mls/hr 01/17/17 20:00 01/18/17 08:53 Normal Saline IV 75 mls/hr ASDIRECTED VERNELL Administration Iopamidol 100 ml 01/15/17 12:18 01/15/17 12:19 Isovue-370 (76%) IVPUSH 01/15/17 12:19 100 ml ONETIME STA Administration Ondansetron HCl 4 mg 01/15/17 10:55 01/15/17 11:07 Zofran IVPUSH 01/15/17 10:56 4 mg ONETIME ONE Administration Ondansetron HCl 4 mg 01/15/17 14:02 01/16/17 00:00 Zofran IVPUSH 4 mg Q4H PRN Administration Nausea/Vomiting Sodium Chloride 10 ml 01/15/17 10:49 Saline Flush FLUSH ASDIRECTED PRN Keep Vein Open Sodium Chloride 2.5 ml 01/15/17 10:49 Saline Flush FLUSH ASDIRECTED PRN Keep Vein Open Sodium Chloride 10 ml 01/15/17 14:02 Saline Flush FLUSH ASDIRECTED PRN Keep Vein Open Sodium Chloride 2.5 ml 01/15/17 14:02 Saline Flush FLUSH ASDIRECTED PRN Keep Vein Open Departure - Departure Time of Disposition: 14:45 Disposition: Admitted As Inpatient 66 Condition: Good Clinical Impression: Acute diverticulitis - Discharge Information
== END 2017-01-18 15:35 | disposition home or self-care (01) | DRG 392 ==
LOC: MW.ED 10:35 → MW.MS 14:02
PROVIDERS: ADMIT Internal Medicine; ATTEND Internal Medicine
DX: K57.20 Diverticulitis of large intestine with perforation and abscess without bleeding (principal); D72.829 Elevated white blood cell count, unspecified; E80.7 Disorder of bilirubin metabolism, unspecified; R19.7 Diarrhea, unspecified
CPT/HCPCS: 36415; 74177; 74177-26; 80048; 80053; 81001; 83630; 83690; 83735; 85025; 87046; 87324; 87899; 89125; 96361; 96365; 96375; 96376; 99285-25; A9270-GY; J0744; J1170; J1650; J2405; J7040; Q9967

== ENCOUNTER 2017-05-06 09:13 | Emergency (ER) | payer OTHER ==
[2017-05-06] MEDS ORDERED: HYDROmorphone 1 MG/ML Syringe IM ONE (09:32)
[2017-05-06] MEDS ORDERED: Lidocaine 1% 20 ML MDV INJECT ONE (09:33)
[2017-05-06] MEDS ORDERED: Bupivacaine 0.5% 10 ML SDV INJECT ONE (09:33)
[2017-05-06] MEDS ORDERED: Ondansetron 4 MG Tab.DIS PO ONE (09:45)
--- NOTE | 2017-05-06 11:08 | EDM.PDOC ---
ED HPI GENERAL MEDICAL PROBLEM - General Chief Complaint: Skin Complaint Stated Complaint: PAIN ON BOTTOM Time Seen by Provider: 05/06/17 09:14 Source of Information: Reports: Patient History Limitations: Reports: No Limitations - History of Present Illness INITIAL COMMENTS - FREE TEXT/NARRATIVE: History of present illness: []Patient's had a rectal abscess for 3 days got significantly worse yesterday. He states he's felt feverish but has no documented temperature. He denies any vomiting or diarrhea. Review of systems: As per history of present illness and below otherwise all systems reviewed and negative. Past medical history: As per history of present illness and as reviewed below otherwise noncontributory. Surgical history: As per history of present illness and as reviewed below otherwise noncontributory. Social history: No reported history of drug or alcohol abuse. Family history: As per history of present illness and as reviewed below otherwise noncontributory. Physical exam: General: Well developed, well nourished in NAD HEENT: Atraumatic, normocephalic, pupils reactive, negative for conjunctival pallor or scleral icterus, mucous membranes moist, throat clear, neck supple, nontender, trachea midline. Lungs: Clear to auscultation, breath sounds equal bilaterally, chest nontender. Heart: S1S2, regular, negative for clicks, rubs, or JVD. Abdomen: Soft, nondistended, nontender. Negative for masses or hepatosplenomegaly. Negative for costovertebral tenderness. Pelvis: Stable nontender. Genitourinary: Deferred. Rectal: Perirectal abscess left buttock Extremities: Atraumatic, negative for cords or calf pain. Neurovascular unremarkable. Neuro: Awake, alert, oriented. Cranial nerves II through XII unremarkable. Cerebellum unremarkable. Motor and sensory unremarkable throughout. Exam nonfocal. Diagnostics: [] Therapeutics: []I&D abscess and packed with iodoform gauze Impression: []A rectal abscess Plan: []Keflex and tramadol as directed, do sitz baths 3-4 times a day if possible, increase fluids follow-up with general surgery as needed. Definitive disposition and diagnosis as appropriate pending reevaluation and review of above. Left Perineal Area Pain Score (Numeric/FACES): 10 - Related Data Allergies Allergy/AdvReac Type Severity Reaction Status Date / Time No Known Allergies Allergy Verified 05/06/17 09:27 Home Meds: Home Meds Cephalexin [Keflex] 500 mg PO Q6HR #28 cap 05/06/17 [Rx] traMADol [Ultram] 50 mg PO Q8H PRN #18 tablet 05/06/17 [Rx] Past Medical History - Past Health History Medical/Surgical History: Denies Medical/Surgical History - Past Surgical History GI Surgical History: Reports: Appendectomy Social & Family History - Family History Family Medical History: Noncontributory - Tobacco Use Smoking Status *Q: Never Smoker Second Hand Smoke Exposure: No - Caffeine Use Caffeine Use: Reports: None - Recreational Drug Use Recreational Drug Use: No ED ROS GENERAL - Review of Systems Review Of Systems: See Below (See history of present illness) ED EXAM, SKIN/RASH Exam: See Below (See history of present illness) ED SKIN PROCEDURES - I&D Site: Buttock Skin Prep: Providone-Iodine (Betadine) Local Anesthesia: Lidocaine: 1% Plain Local Anesthesia - Bupivicaine (Marcaine): 0.5% Plain Local Anesthetic Volume: 3cc Area Incised With: 11 Blade Drainage: Purulent, Small Amount Probed to Break Up Loculations: Yes Packed With: 1/4 in. Iodoform Complications: No Course - Vital Signs Last Recorded V/S: Last Vital Signs Temp 96.8 F 05/06/17 09:25 Pulse 96 05/06/17 09:25 Resp 18 05/06/17 09:25 BP 138/80 05/06/17 09:25 Pulse Ox 98 05/06/17 09:25 - Orders/Labs/Meds Meds: Medications Discontinued Medications Generic Name Dose Route Start Last Admin Trade Name Arielle PRN Reason Stop Dose Admin Bupivacaine HCl 10 ml 05/06/17 09:33 05/06/17 09:43 Sensorcaine-Mpf 0.5% INJECT 05/06/17 09:34 10 ml ONETIME ONE Administration Hydromorphone HCl 1 mg 05/06/17 09:32 05/06/17 09:41 Dilaudid IM 05/06/17 09:33 1 mg ONETIME ONE Administration Lidocaine HCl 20 ml 05/06/17 09:33 05/06/17 09:42 Xylocaine 1% INJECT 05/06/17 09:34 20 ml ONETIME ONE Administration Ondansetron HCl 4 mg 05/06/17 09:45 05/06/17 09:52 Zofran Odt PO 05/06/17 09:46 4 mg ONETIME ONE Administration Departure - Departure Time of Disposition: 11:18 Disposition: Home, Self-Care 01 Condition: Good Clinical Impression: Perirectal abscess - Discharge Information Prescriptions: Cephalexin [Keflex] 500 mg PO Q6HR #28 cap traMADol [Ultram] 50 mg PO Q8H PRN #18 tablet PRN Reason: Pain Referrals: PCP,None [Primary Care Provider] - Forms: ED Department Discharge Additional Instructions: The following information is given to patients seen in the emergency department who are being discharged to home. This information is to outline your options for follow-up care. We provide all patients seen in our emergency department with a follow-up referral. The need for follow-up, as well as the timing and circumstances, are variable depending upon the specifics of your emergency department visit. If you don't have a primary care physician on staff, we will provide you with a referral. We always advise you to contact your personal physician following an emergency department visit to inform them of the circumstance of the visit and for follow-up with them and/or the need for any referrals to a consulting specialist. The emergency department will also refer you to a specialist when appropriate. This referral assures that you have the opportunity for follow-up care with a specialist. All of these measure are taken in an effort to provide you with optimal care, which includes your follow-up. Under all circumstances we always encourage you to contact your private physician who remains a resource for coordinating your care. When calling for follow-up care, please make the office aware that this follow-up is from your recent emergency room visit. If for any reason you are refused follow-up, please contact the [facility] Emergency Department at and asked to speak to the emergency department charge nurse. Tramadol, Keflex as directed states Is Much As Possible Follow-Up with General Surgery If Needed. [facility] Specialty Care - General Surgery Professional Building [address] [place] [address], [address] [place] [address]
[2017-05-06 11:48] VITALS: BP 140/85
== END 2017-05-06 11:44 | disposition home or self-care (01) ==
LOC: MW.ED 09:13
DX: K61.1 Rectal abscess (principal)
CPT/HCPCS: 10061; 96372; 99283; A9270; J1170

== ENCOUNTER 2017-10-03 15:07 | Inpatient (IN) | payer OTHER ==
[2017-10-03] MEDS ORDERED: Ondansetron 4 MG/2 ML SDV IVPUSH ONE (15:23)
[2017-10-03] MEDS ORDERED: Ketorolac 30 MG/ML SDV IVPUSH ONE (15:23)
[2017-10-03] MEDS ORDERED: Sodium Chloride 0.9% 1,000 ML IV ONE (15:23)
--- NOTE | 2017-10-03 15:24 | EDM.PDOC ---
ED HPI GENERAL MEDICAL PROBLEM - General Chief Complaint: Abdominal Pain Stated Complaint: ABD PAIN Time Seen by Provider: 10/03/17 15:24 Source of Information: Reports: Patient - History of Present Illness INITIAL COMMENTS - FREE TEXT/NARRATIVE: HISTORY AND PHYSICAL: History of present illness: [Patient presents with 8 out of 10 abdominal pain radiating to his back patient states focus is epigastric however he has diffuse tenderness on exam with firm abdomen intermittent nausea no vomiting chills sweats ] Review of systems: As per history of present illness and below otherwise all systems reviewed and negative. Past medical history: As per history of present illness and as reviewed below otherwise noncontributory. Surgical history: As per history of present illness and as reviewed below otherwise noncontributory. Social history: No reported history of drug or alcohol abuse. Family history: As per history of present illness and as reviewed below otherwise noncontributory. Physical exam: HEENT: Atraumatic, normocephalic, pupils reactive, negative for conjunctival pallor or scleral icterus, mucous membranes moist, throat clear, neck supple, nontender, trachea midline. Lungs: Clear to auscultation, breath sounds equal bilaterally, chest nontender. Heart: S1S2, regular, negative for clicks, rubs, or JVD. Abdomen: Sonondistended multifocal tenderness with guarding and rebound, negtive for masses or hepatosplenomegaly. Negative for costovertebral tenderness. Pelvis: Stable nontender. Genitourinary: Deferred. Rectal: Deferred. Extremities: Atraumatic, negative for cords or calf pain. Neurovascular unremarkable. Neuro: Awake, alert, oriented. Cranial nerves II through XII unremarkable. Cerebellum unremarkable. Motor and sensory unremarkable throughout. Exam nonfocal. Diagnostics: [CBC CMP and lipase UA blood cultures 2 CT abdomen pelvis with contrast ] Therapeutics: [ normal saline 1 L bolus Zofran 8 mg IV Toradol 30 mg IV ] Zosyn 3.375 g IV Morphine 4 mg IV Normal saline [address] Turner consult that at 5:30 1730 hrs.eval /treat/disposition Impression: Pneumo-peritoneum [ abdominal pain ] Definitive disposition and diagnosis as appropriate pending reevaluation and review of above. Middle Abdominal Pain Score (Numeric/FACES): 10 - Related Data Allergies Allergy/AdvReac Type Severity Reaction Status Date / Time No Known Allergies Allergy Verified 05/06/17 09:27 Home Meds: Home Meds . [No Known Home Meds] 10/03/17 [History] Past Medical History - Past Health History Medical/Surgical History: Denies Medical/Surgical History Cardiovascular History: Reports: Hypertension Gastrointestinal History: Reports: Diverticulosis - Past Surgical History GI Surgical History: Reports: Appendectomy Social & Family History - Family History Family Medical History: Noncontributory - Tobacco Use Smoking Status *Q: Never Smoker Second Hand Smoke Exposure: No - Caffeine Use Caffeine Use: Reports: None - Recreational Drug Use Recreational Drug Use: No ED ROS GENERAL - Review of Systems Review Of Systems: ROS reveals no pertinent complaints other than HPI. ED EXAM, GENERAL - Physical Exam Exam: See Below Course - Vital Signs Last Recorded V/S: Last Vital Signs Temp 98.9 F 10/03/17 15:17 Pulse 101 H 10/03/17 17:39 Resp 18 10/03/17 17:39 BP 137/85 10/03/17 17:39 Pulse Ox 96 10/03/17 17:39 - Orders/Labs/Meds Orders: Active Orders 24 hr Category Date Time Status Notify Provider Consults [RC] ASDIRECTED Care 10/03/17 17:36 Active Consult to Physician [CONS] Stat Cons 10/03/17 17:35 Active Abdomen Pelvis w Cont [CT] Stat Exams 10/03/17 15:24 Taken CULTURE BLOOD [BC] Stat Lab 10/03/17 16:02 Received CULTURE BLOOD [BC] Stat Lab 10/03/17 16:08 Received Sodium Chloride 0.9% [Normal Saline] 1,000 ml Med 10/03/17 17:30 Active IV STAT Blood Culture x2 Reflex Set [OM.PC] Stat Oth 10/03/17 15:43 Ordered Medication Orders Sodium Chloride (Normal Saline) 1,000 mls @ 125 mls/hr IV STAT VERNELL Last Admin: 10/03/17 17:43 Dose: 125 mls/hr Labs: Laboratory Tests 10/03/17 10/03/17 Range/Units 15:39 15:39 WBC 11.12 H (4.0-11.0) K/uL RBC 4.51 (4.50-5.90) M/uL Hgb 13.7 (13.0-17.0) g/dL Hct 38.8 (38.0-50.0) % MCV 86.0 (80.0-98.0) fL MCH 30.4 (27.0-32.0) pg MCHC 35.3 (31.0-37.0) g/dL RDW Std Deviation 40.2 (28.0-62.0) fl RDW Coeff of Enrrique 13 (11.0-15.0) % Plt Count 177 (150-400) K/uL MPV 9.80 (7.40-12.00) fL Neut % (Auto) 90.4 H (48.0-80.0) % Lymph % (Auto) 6.7 L (16.0-40.0) % Kern % (Auto) 2.7 (0.0-15.0) % Eos % (Auto) 0.1 (0.0-7.0) % Baso % (Auto) 0.1 (0.0-1.5) % Neut # (Auto) 10.1 H (1.4-5.7) K/uL Lymph # (Auto) 0.7 (0.6-2.4) K/uL Kern # (Auto) 0.3 (0.0-0.8) K/uL Eos # (Auto) 0.0 (0.0-0.7) K/uL Baso # (Auto) 0.0 (0.0-0.1) K/uL Nucleated RBC % 0.0 /100WBC Nucleated RBCs # 0 K/uL Sodium 138 (136-148) mmol/L Potassium 3.8 (3.5-5.1) mmol/L Chloride 103 (98-107) mmol/L Carbon Dioxide 24.1 (21.0-32.0) mmol/L BUN 13 (7.0-18.0) mg/dL Creatinine 0.7 L (0.8-1.3) mg/dL Est Cr Clr Drug Dosing 151.50 mL/min Estimated GFR (MDRD) > 60.0 ml/min Glucose 118 H (74-106) mg/dL Calcium 8.8 (8.5-10.1) mg/dL Total Bilirubin 2.0 H (0.2-1.0) mg/dL AST 29 (15-37) IU/L ALT 28 (14-63) IU/L Alkaline Phosphatase 59 (46-116) U/L Total Protein 7.5 (6.4-8.2) g/dL Albumin 3.9 (3.4-5.0) g/dL Globulin 3.6 H (2.0-3.5) g/dL Albumin/Globulin Ratio 1.1 L (1.3-2.8) Lipase 247 (73-393) U/L Meds: Medications Generic Name Dose Route Start Last Admin Trade Name Freq PRN Reason Stop Dose Admin Sodium Chloride 1,000 mls @ 125 mls/hr 10/03/17 17:30 10/03/17 17:43 Normal Saline IV 125 mls/hr STAT VERNELL Administration Discontinued Medications Generic Name Dose Route Start Last Admin Trade Name Freq PRN Reason Stop Dose Admin Sodium Chloride 1,000 mls @ 999 mls/hr 10/03/17 15:23 10/03/17 15:34 Normal Saline IV 10/03/17 16:23 999 mls/hr STAT ONE Administration Piperacillin Sod/Tazobactam 50 mls @ 100 mls/hr 10/03/17 17:26 10/03/17 17:41 Sod 3.375 gm/ Sodium Chloride IV 10/03/17 17:55 100 mls/hr ONETIME ONE Administration Ketorolac Tromethamine 30 mg 10/03/17 15:23 10/03/17 15:33 Toradol IVPUSH 10/03/17 15:24 30 mg ONETIME ONE Administration Morphine Sulfate 4 mg 10/03/17 16:57 10/03/17 17:08 Morphine IVPUSH 10/03/17 16:58 4 mg ONETIME ONE Administration Ondansetron HCl 8 mg 10/03/17 15:23 10/03/17 15:33 Zofran IVPUSH 10/03/17 15:24 8 mg ONETIME ONE Administration Departure - Departure Time of Disposition: 18:16 Disposition: Still A Patient 30 Condition: Poor Clinical Impression: Pneumoperitoneum - Discharge Information Referrals: PCP,None [Primary Care Provider] - Forms: ED Department Discharge - My Orders Last 24 Hours: My Active Orders 10/03/17 15:24 Abdomen Pelvis w Cont [CT] Stat 10/03/17 15:43 Blood Culture x2 Reflex Set [OM.PC] Stat 10/03/17 16:02 CULTURE BLOOD [BC] Stat 10/03/17 16:08 CULTURE BLOOD [BC] Stat 10/03/17 17:30 Sodium Chloride 0.9% [Normal Saline] 1,000 ml IV STAT 10/03/17 17:35 Consult to Physician [CONS] Stat 10/03/17 17:36 Notify Provider Consults [RC] ASDIRECTED - Assessment/Plan Last 24 Hours: My Active Orders 10/03/17 15:24 Abdomen Pelvis w Cont [CT] Stat 10/03/17 15:43 Blood Culture x2 Reflex Set [OM.PC] Stat 10/03/17 16:02 CULTURE BLOOD [BC] Stat 10/03/17 16:08 CULTURE BLOOD [BC] Stat 10/03/17 17:30 Sodium Chloride 0.9% [Normal Saline] 1,000 ml IV STAT 10/03/17 17:35 Consult to Physician [CONS] Stat 10/03/17 17:36 Notify Provider Consults [RC] ASDIRECTED
[2017-10-03 16:10] LABS: CHLORIDE,CL 103 mmol/L (98-107); SODIUM,NA 138 mmol/L (136-148)
[2017-10-03] MEDS ORDERED: Morphine 4 MG/ML Syringe IVPUSH ONE ×2 (16:57→19:34)
[2017-10-03] MEDS ORDERED: Piperacillin/Tazobactam 3.375 GM in Sodium Chloride 0.9% 50 ML IV ONE (17:26)
[2017-10-03] MEDS ORDERED: Sodium Chloride 0.9% 1,000 ML IV SCH (17:30)
[2017-10-03] MEDS ORDERED: Lactated Ringers 1,000 ML IV ONE (18:59)
[2017-10-03] MEDS ORDERED: cefOXitin 2 GM in Premix Bag 1 BAG IV ONE (18:59)
--- NOTE | 2017-10-03 19:08 | CT ---
EXAM DATE: 10/03/17 PATIENT'S AGE: 32 Patient: ALLYN NELSON Facility: [place], [place] Site . Site : 1985 Study: CT Abdomen/Pelvis W GAIL [id number]/30/2018 4:47:37 PM Ordering Physician: Steven Nichols Final Report: INDICATION: Lower abdominal pain TECHNIQUE: CT abdomen and pelvis acquired with IV contrast. COMPARISON: A flush 05/22 FINDINGS: Lower chest: A prominent cystic/bullous area in the medial left upper lobe and a smaller adjacent peripheral cystic focus more inferiorly. Liver: Unremarkable. Spleen: Unremarkable. Pancreas: Unremarkable. Gallbladder and bile ducts: Unremarkable. Adrenal glands: An 8 millimeter indeterminate right adrenal nodule again seen. Kidneys: No hydronephrosis. Subcentimeter renal low-density lesions suggestive of small cysts. GI tract: Pneumoperitoneum consistent with a perforated viscus, with an irregular collection of fluid and gas in the lower abdominal mesentery, measuring 4.7 x 1.6 centimeters, without significant peripheral enhancement at this time. Wall thickening of an adjacent small bowel segment. A curvilinear soft tissue density extending from the proximal sigmoid colon to this small bowel segment, seen on images 109- 113, concerning for a fistula/sinus tract. A small focus of gas with surrounding soft tissue density along the posterior wall of the lower abdominal small bowel segment on image 109 may be related to the fistula or a regional inflammatory process involving the small bowel segment , including the possibility of perforated small-bowel diverticulitis. Wall thickening involving additional small bowel segments, compatible with enteritis. Probable post appendectomy changes. Left colonic diverticulosis again seen. Mild stranding in the proximal sigmoid mesocolon, however otherwise , no evidence of gross sigmoid diverticulitis at this time. Vascular structures: Unremarkable. Lymph nodes: Unremarkable. Pelvic Organs: Mild bladder wall thickening. An irregular, ill-defined area of increased attenuation within the bladder may be related to mixing excreted contrast, although luminal blood products are not excluded. Stable prostate. 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 Wall thickening in additional small bowel segments compatible with enteritis. A collection of fluid and gas adjacent to the focally inflamed lower abdominal small bowel segment, however, without significant peripheral enhancement at this time. Bladder wall thickening. An irregular luminal density within the bladder may be related to early contrast excretion, however, blood products are not excluded. Correlate with urinalysis. The findings were discussed with Dr. Harris, by phone, on 10/03/2017 at 5:20 p.m.. Dictated by Walter Garcia MD @ 10/03/2017 5:33:27 PM Dictated by: Walter Garcia MD @ 10/03/2017 17:33:40 (Electronic Signature) Report Signed by Proxy. HERNESTO
[2017-10-03] MEDS ORDERED: Ondansetron 4 MG/2 ML SDV ONE (19:30)
[2017-10-03] MEDS ORDERED: Lidocaine 2% 5 ML SDV ONE (19:30)
[2017-10-03] MEDS ORDERED: Midazolam 1 MG/ML 2 ML SDV ONE (19:30)
[2017-10-03] MEDS ORDERED: Propofol 200 MG/20 ML SDV ONE (19:30)
[2017-10-03] MEDS ORDERED: fentaNYL 250 MCG/5 ML SDV ONE (19:30)
[2017-10-03] MEDS ORDERED: Rocuronium 10 MG/ML 10 ML Syringe ONE (19:30)
[2017-10-03] MEDS ORDERED: Bupivacaine 25%/EPINEPHrine/PF 30 ML ONE (19:31)
[2017-10-03] MEDS ORDERED: Succinylcholine 200 MG/10 ML MDV ONE (19:34)
--- NOTE | 2017-10-03 19:48 | PCM.PREANE ---
Preanesthetic Assessment - Anesthesia/Transfusion/Family Hx Anesthesia History: Prior Anesthesia Without Reaction Family History of Anesthesia Reaction: No Transfusion History: No Prior Transfusion(s) Intubation History: Unknown - Review of Systems General: Fever, Fatigue, Malaise, Chills Pulmonary: No Symptoms Cardiovascular: No Symptoms Gastrointestinal: Abdominal Pain Neurological: No Symptoms Other: Reports: Anxiety - Physical Assessment NPO Status Date: 10/03/17 NPO Status Time: 13:00 O2 Sat by Pulse Oximetry: 98 Respiratory Rate: 18 Vital Signs: Last Vital Signs Temp 98.9 F 10/03/17 18:28 Pulse 100 10/03/17 18:28 Resp 18 10/03/17 18:28 BP 116/67 10/03/17 18:28 Pulse Ox 98 10/03/17 18:28 Height: 5 ft 9 in Weight: 212 lb 15.465 oz ASA Class: 2E Mental Status: Alert & Oriented x3 Airway Class: Mallampati = 2 Dentition: Reports: Normal Dentition Thyro-Mental Finger Breadths: 3 Mouth Opening Finger Breadths: 3 ROM/Head Extension: Full Lungs: Clear to Auscultation, Normal Respiratory Effort, Decreased Breath Sounds (in L base) Cardiovascular: Regular Rate, Regular Rhythm - Lab Values: Laboratory Last Values WBC 11.12 K/uL (4.0-11.0) H 10/03/17 15:39 RBC 4.51 M/uL (4.50-5.90) 10/03/17 15:39 Hgb 13.7 g/dL (13.0-17.0) 10/03/17 15:39 Hct 38.8 % (38.0-50.0) 10/03/17 15:39 MCV 86.0 fL (80.0-98.0) 10/03/17 15:39 MCH 30.4 pg (27.0-32.0) 10/03/17 15:39 MCHC 35.3 g/dL (31.0-37.0) 10/03/17 15:39 RDW Std Deviation 40.2 fl (28.0-62.0) 10/03/17 15:39 RDW Coeff of Enrrique 13 % (11.0-15.0) 10/03/17 15:39 Plt Count 177 K/uL (150-400) 10/03/17 15:39 MPV 9.80 fL (7.40-12.00) 10/03/17 15:39 Neut % (Auto) 90.4 % (48.0-80.0) H 10/03/17 15:39 Lymph % (Auto) 6.7 % (16.0-40.0) L 10/03/17 15:39 Frio % (Auto) 2.7 % (0.0-15.0) 10/03/17 15:39 Eos % (Auto) 0.1 % (0.0-7.0) 10/03/17 15:39 Baso % (Auto) 0.1 % (0.0-1.5) 10/03/17 15:39 Neut # (Auto) 10.1 K/uL (1.4-5.7) H 10/03/17 15:39 Lymph # (Auto) 0.7 K/uL (0.6-2.4) 10/03/17 15:39 Frio # (Auto) 0.3 K/uL (0.0-0.8) 10/03/17 15:39 Eos # (Auto) 0.0 K/uL (0.0-0.7) 10/03/17 15:39 Baso # (Auto) 0.0 K/uL (0.0-0.1) 10/03/17 15:39 Nucleated RBC % 0.0 /100WBC 10/03/17 15:39 Nucleated RBCs # 0 K/uL 10/03/17 15:39 Sodium 138 mmol/L (136-148) 10/03/17 15:39 Potassium 3.8 mmol/L (3.5-5.1) 10/03/17 15:39 Chloride 103 mmol/L (98-107) 10/03/17 15:39 Carbon Dioxide 24.1 mmol/L (21.0-32.0) 10/03/17 15:39 BUN 13 mg/dL (7.0-18.0) 10/03/17 15:39 Creatinine 0.7 mg/dL (0.8-1.3) L 10/03/17 15:39 Est Cr Clr Drug Dosing 151.50 mL/min 10/03/17 15:39 Estimated GFR (MDRD) > 60.0 ml/min 10/03/17 15:39 Glucose 118 mg/dL (74-106) H 10/03/17 15:39 Calcium 8.8 mg/dL (8.5-10.1) 10/03/17 15:39 Total Bilirubin 2.0 mg/dL (0.2-1.0) H 10/03/17 15:39 AST 29 IU/L (15-37) 10/03/17 15:39 ALT 28 IU/L (14-63) 10/03/17 15:39 Alkaline Phosphatase 59 U/L (46-116) 10/03/17 15:39 Total Protein 7.5 g/dL (6.4-8.2) 10/03/17 15:39 Albumin 3.9 g/dL (3.4-5.0) 10/03/17 15:39 Globulin 3.6 g/dL (2.0-3.5) H 10/03/17 15:39 Albumin/Globulin Ratio 1.1 (1.3-2.8) L 10/03/17 15:39 Lipase 247 U/L (73-393) 10/03/17 15:39 - Allergies Allergies/Adverse Reactions: Allergies Allergy/AdvReac Type Severity Reaction Status Date / Time No Known Allergies Allergy Verified 05/06/17 09:27 - Blood Blood Available: No Product(s) Available: None (T&S) - Anesthesia Plan Pre-Op Medication Ordered: None - Acknowledgements Anesthesia Type Planned: General Anesthesia Pt an Appropriate Candidate for the Planned Anesthesia: Yes Alternatives and Risks of Anesthesia Discussed w Pt/Guardian: Yes Pt/Guardian Understands and Agrees with Anesthesia Plan: Yes PreAnesthesia Questionnaire - Past Health History Medical/Surgical History: Denies Medical/Surgical History Cardiovascular History: Reports: Hypertension (pt states in the past he has been told HTN, but has seemed better lately - no meds) Gastrointestinal History: Reports: Diverticulosis - Past Surgical History GI Surgical History: Reports: Appendectomy - SUBSTANCE USE Smoking Status *Q: Never Smoker Second Hand Smoke Exposure: No Recreational Drug Use History: No - HOME MEDS Home Medications: Home Meds . [No Known Home Meds] 10/03/17 [History] - CURRENT (IN HOUSE) MEDS Current Meds: Current Medications Sodium Chloride (Normal Saline) 1,000 mls @ 125 mls/hr IV STAT VERNELL Last Admin: 10/03/17 17:43 Dose: 125 mls/hr Lactated Ringer's (Ringers, Lactated) 1,000 mls @ 150 mls/hr IV ONETIME ONE Stop: 10/04/17 01:38 Last Admin: 10/03/17 19:32 Dose: 150 mls/hr Discontinued Medications Fentanyl (Sublimaze) Confirm Administered Dose 250 mcg .ROUTE .STK-MED ONE Stop: 10/03/17 19:31 Sodium Chloride (Normal Saline) 1,000 mls @ 999 mls/hr IV STAT ONE Stop: 10/03/17 16:23 Last Admin: 10/03/17 15:34 Dose: 999 mls/hr Piperacillin Sod/Tazobactam (Sod 3.375 gm/ Sodium Chloride) 50 mls @ 100 mls/ hr IV ONETIME ONE Stop: 10/03/17 17:55 Last Admin: 10/03/17 17:41 Dose: 100 mls/hr Cefoxitin Sodium 2 gm/ Premix 50 mls @ 100 mls/hr IV ONETIME ONE Stop: 10/03/17 19:28 Last Admin: 10/03/17 19:32 Dose: 100 mls/hr Bupivacaine HCl/Epinephrine Bitart (Sensorc Mpf 0.25%-Epi [id number]) Confirm Administered Dose 30 mls @ as directed .ROUTE .STK-MED ONE Stop: 10/03/17 19:32 Ketorolac Tromethamine (Toradol) 30 mg IVPUSH ONETIME ONE Stop: 10/03/17 15:24 Last Admin: 10/03/17 15:33 Dose: 30 mg Lidocaine (Xylocaine-Mpf 2%) Confirm Administered Dose 5 ml .ROUTE .STK-MED ONE Stop: 10/03/17 19:31 Midazolam HCl (Versed 1 Mg/Ml) Confirm Administered Dose 2 mg .ROUTE .STK-MED ONE Stop: 10/03/17 19:31 Morphine Sulfate (Morphine) 4 mg IVPUSH ONETIME ONE Stop: 10/03/17 16:58 Last Admin: 10/03/17 17:08 Dose: 4 mg Morphine Sulfate (Morphine) 3 mg IVPUSH ONETIME ONE Stop: 10/03/17 19:35 Last Admin: 10/03/17 19:37 Dose: 3 mg Ondansetron HCl (Zofran) 8 mg IVPUSH ONETIME ONE Stop: 10/03/17 15:24 Last Admin: 10/03/17 15:33 Dose: 8 mg Ondansetron HCl (Zofran) Confirm Administered Dose 4 mg .ROUTE .STK-MED ONE Stop: 10/03/17 19:31 Propofol (Diprivan 20 Ml) Confirm Administered Dose 200 mg .ROUTE .STK-MED ONE Stop: 10/03/17 19:31 Rocuronium [place] (Zemuron) Confirm Administered Dose 100 mg .ROUTE .STK-MED ONE Stop: 10/03/17 19:31 Succinylcholine Chloride (Quelicin) Confirm Administered Dose 200 mg .ROUTE .STK -MED ONE Stop: 10/03/17 19:35
[2017-10-03] MEDS ORDERED: HYDROmorphone 2 MG/ML SDV ONE (20:29)
[2017-10-03] MEDS ORDERED: HYDROmorphone 2 MG/ML SDV IVPUSH PRN (20:43)
[2017-10-03] MEDS ORDERED: Neostigmine Methylsulfate 1 MG/ML 5 ML Syringe ONE (21:54)
[2017-10-03] MEDS ORDERED: Glycopyrrolate 0.2 MG/ML SDV ONE (21:54)
--- NOTE | 2017-10-03 22:16 | HP ---
DATE OF : 1985 PRIMARY CARE PHYSICIAN: None PCP CONSULTING QUESTION: Perforated viscus. HISTORY OF PRESENT ILLNESS: The patient is a 32-year-old gentleman, complained of acute onset of abdominal pain at 3 a.m. in the morning, and the patient tucked it up and continued to go to work; however, in the workplace, pain intensified. The patient stopped working, came to the emergency room and workup included CAT scan, which shows perforated viscus, possible diverticulitis, and small-bowel fistula and currently, the patient is still complaining pain 10/10 and denied prior episode. Denied fever, chills, or diarrhea; and as a matter of fact, the patient had lunch and kept it down. PAST MEDICAL HISTORY: Significant for no diabetes, OR, CVA, or hypertension. PAST SURGICAL HISTORY: Laparoscopic appendectomy 10 years ago. ALLERGIES: Please refer to nursing for details. MEDICATION: Please refer to nursing for details. FAMILY HISTORY: Noncontributory. REVIEW OF SYSTEMS: Same as history of present illness. PHYSICAL EXAMINATION: GENERAL: Very pleasant nice gentleman, in no acute distress. HEENT: Normocephalic and atraumatic. Sclerae anicteric. LUNGS: Clear to auscultation. HEART: Regular rate and rhythm. ABDOMEN: Soft, nondistended. No pulsating tender midline abdominal structure. Exquisite tenderness on the bilateral lower quadrant. No rebound tenderness. LABORATORY DATA: White count are 11.2. CAT scan shows possible diverticulitis, small bowel fistula at the left lower quadrant. IMPRESSION: Perforated viscus, pain 10 over 10 on pain scale, and woke up at 3 am, and stopped work to see help from emergency room, will benefit from timely laparoscopic exploratory laparotomy and possible bowel resection, possible ostomy. Risks and benefits were discussed with the patient. The patient concurred to proceed as planned. We will start the patient on IV fluids and start with Mefoxin and proceed as planned. BECCA / LAKISHA /[id number] HERNESTO
--- NOTE | 2017-10-03 22:30 | PCM.OPNOTE ---
- General Post-Op/Procedure Note Date of Surgery/Procedure: 10/03/17 Operative Procedure(s): 1) exploratory laparotomy. 2) take down ileocolic fistula, and biopsy Findings: 1) no "hard sign" of perforated viscus 2) ileum colic fistula located, but the lumen was obliterated 3) no signs of acute diverticulitis see dict [id number] Pre Op Diagnosis: perforated viscus Post-Op Diagnosis: Same Anesthesia Technique: General ET Tube Primary Surgeon: Alexandru Jaquez Pathology: ileocolic fistual remant Complications: None Condition: Good
--- NOTE | 2017-10-03 22:34 | PCM.SN ---
- Free Text/Narrative Note: consult from ED, for perforated viscus; pt described pain is unbearable, 03/15, and happened exactly at 3 am in the morning; managed to go work, but could not take it, stopped work midday and seeked help in ed; ct > perforated viscus with ileum colic fistula; pt was offered surgery or 2nd opinion; pt would go surgery for exploratory laparotomy, possible bowel resection, possible ostomy; pt voiced understanding, and proceed
[2017-10-03] MEDS: fentaNYL 100 MCG/2 ML SDV IVPUSH PRN ×2 (22:46→22:57)
--- NOTE | 2017-10-03 23:12 | PCM.POSTAN ---
POST ANESTHESIA ASSESSMENT - MENTAL STATUS Mental Status: Alert, Oriented - VITAL SIGNS Pulse Rate: 105 SaO2: 93 Resp Rate: 19 Blood Pressure: 153/96 - RESPIRATORY Respiratory Status: Respiratory Rate WNL, Airway Patent, O2 Saturation Stable, Supplemental Oxygen (per NC) - CARDIOVASCULAR CV Status: Pulse Rate WNL, Blood Pressure Stable - GASTROINTESTINAL GI Status: No Symptoms - PAIN Pain Score: 2 (Pt verbalizes comfort) - POST OP HYDRATION Hydration Status: Adequate & Stable - OBSERVATIONS Free Text/Narrative:: Pt awake and alert with pain well controlled and no nausea. VSS. Pt stable for tx to phase II on med/surg.
[2017-10-03] MEDS: Morphine PF 30 MG/30 ML PCA Vial IV PRN (23:40)
[2017-10-03] MEDS: Lactated Ringers 1,000 ML IV SCH (23:47)
[2017-10-04] MEDS: Levofloxacin/Dextrose 5%-Water 750 MG in Premix Bag 1 BAG IV SCH ×2 (00:17→21:37)
[2017-10-04] MEDS: metroNIDAZOLE/Normal Saline 500 MG in Premix Bag 1 BAG IV SCH ×4 (01:54→17:43)
--- NOTE | 2017-10-04 02:45 | OR ---
SURGEON: Alexandru Jaquez MD DATE OF PROCEDURE: 10/03/2017 PREOPERATIVE DIAGNOSIS: Perforated viscus. POSTOPERATIVE DIAGNOSIS: Perforated viscus. PROCEDURES PERFORMED: 1. Exploratory laparotomy. 2. Takedown of ileocolic fistula. 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 CAT scan revealed perforated viscus, and the patient remarked pain was 10/10. The patient was taken to the operating room for exploratory laparotomy. PROCEDURE IN DETAIL: The patient was taken to the operating room, placed in supine position. Upon induction of general endotracheal anesthesia, the patient's abdomen was prepped and draped in a sterile fashion. Time-out was being called. The patient identified, procedure identified, antibiotic given. Procedure was then started. Using a #10 blade, a midline incision was made from epigastrium beveled to the umbilicus to the right and down to the pubis. This was then taken down through the linea alba, and the peritoneum was then entered in a standard fashion. Upon gaining entrance to the peritoneal cavity, failed to notice a gush of air when the peritoneal cavity was entered. This was rather unusual. However, the peritoneal fluid was a little bit cloudy and purulent, but there was no usual "hard sign" of perforation. The small bowel was run twice, almost quite far away from the terminal ileum, I would say close to at least 30 cm from the terminal ileum. There was a diverticulum structure attached to the sigmoid colon. They did not seem to be communicating upon palpation, and using the ROX- 55, the fistula was transected, and there was no bowel content coming out, and the serosal layer was imbricated by using Lembert stitches 3-0 pop-off, and the remnant of the fistula was removed a bit, sent for biopsy, and again failed to notice any bile or bile-looking or bile-stained bowel content. The small bowel was run one more time, failed to notice other problem. The incision was enlarged a bit cephalad so that we could look at the stomach, and the stomach was able to blow up and did not seem to have any perforation or ulcer. An NG tube was in the right position. Then, the colon was run, and the patient had appendectomy by history and then the colon was run all the way to the hepatic flexure, the splenic fracture down to the sigmoid. The colon was soft, did not have any acute disease or diverticulitis. The patient had a lot of diverticula, but again, the colon was soft and did not seem to have any acute disease. In light of the situation, failed to find any obvious signs of perforation, this was then irrigated copiously and omentum pulled down, and the peritoneal cavity was closed with double-stranded #1 PDS and skin staple. Every layer of closure was followed by copious amount of irrigation. This was then followed with appropriate dressing. The patient was then awakened, extubated, and transferred to recovery in hemodynamically stable condition. The patient tolerated the procedure well. There were no intraoperative complications. BECCA BANUELOS /[id number] HERNESTO
[2017-10-04 06:40] LABS: CHLORIDE,CL 101 mmol/L (98-107); SODIUM,NA 136 mmol/L (136-148)
--- NOTE | 2017-10-04 07:38 | PCM48HPAN ---
Post Anesthesia Note - EVALUATION WITHIN 48HRS OF ANESTHETIC Vital Signs in Normal Range: Yes Patient Participated in Evaluation: Yes Respiratory Function Stable: Yes Airway Patent: Yes Cardiovascular Function Stable: Yes Hydration Status Stable: Yes Pain Control Satisfactory: Yes Nausea and Vomiting Control Satisfactory: Yes Mental Status Recovered: Yes Pulse Rate: 105 Resp Rate: 20 Blood Pressure: 153/96 - COMMENTS/OBSERVATIONS Free Text/Narrative:: Pt resting with good pain control and no nausea overnight.
[2017-10-04] MEDS: Pantoprazole 40 MG Vial IVPUSH SCH (08:04)
[2017-10-04] MEDS: Lactated Ringers 1,000 ML IV SCH ×2 (10:15→17:51)
[2017-10-04] MEDS: Benzocaine/Cetylpyridinium/Menthol Lozenge MUCMEM PRN ×2 (10:16→13:22)
[2017-10-04] MEDS: Ondansetron 4 MG/2 ML SDV IVPUSH PRN ×2 (10:22→21:37)
--- NOTE | 2017-10-04 16:30 | PCM.SURGPN ---
- General Info Date of Service: 10/04/17 Functional Status: Reports: Pain Controlled - Review of Systems General: Reports: No Symptoms (passing gas) - Patient Data Vitals - Most Recent: Last Vital Signs Temp 98.4 F 10/04/17 12:00 Pulse 93 10/04/17 12:00 Resp 16 10/04/17 12:00 BP 123/74 10/04/17 12:00 Pulse Ox 96 10/04/17 12:00 Weight - Most Recent: 219 lb 4.8 oz I&O - Last 24 Hours: Intake & Output 10/04/17 10/04/17 10/04/17 06:59 14:59 22:59 Intake Total 4150 200 50 Output Total 780 3160 Balance 3370 200 -3110 Lab Results Last 24 Hrs: Laboratory Results - last 24 hr 10/03/17 10/04/17 10/04/17 Range/Units 19:37 05:37 05:37 WBC 11.04 H (4.0-11.0) K/uL RBC 4.19 L (4.50-5.90) M/uL Hgb 12.5 L (13.0-17.0) g/dL Hct 36.9 L (38.0-50.0) % MCV 88.1 (80.0-98.0) fL MCH 29.8 (27.0-32.0) pg MCHC 33.9 (31.0-37.0) g/dL RDW Std Deviation 42.0 (28.0-62.0) fl RDW Coeff of Enrrique 13 (11.0-15.0) % Plt Count 145 L (150-400) K/uL MPV 9.90 (7.40-12.00) fL Neut % (Auto) 91.7 H (48.0-80.0) % Lymph % (Auto) 4.8 L (16.0-40.0) % [place] % (Auto) 3.4 (0.0-15.0) % Eos % (Auto) 0.0 (0.0-7.0) % Baso % (Auto) 0.1 (0.0-1.5) % Neut # (Auto) 10.1 H (1.4-5.7) K/uL Lymph # (Auto) 0.5 L (0.6-2.4) K/uL [place] # (Auto) 0.4 (0.0-0.8) K/uL Eos # (Auto) 0.0 (0.0-0.7) K/uL Baso # (Auto) 0.0 (0.0-0.1) K/uL Nucleated RBC % 0.0 /100WBC Nucleated RBCs # 0 K/uL Sodium 136 (136-148) mmol/L Potassium 3.7 (3.5-5.1) mmol/L Chloride 101 (98-107) mmol/L Carbon Dioxide 25.5 (21.0-32.0) mmol/L BUN 5 L (7.0-18.0) mg/dL Creatinine 0.6 L (0.8-1.3) mg/dL Est Cr Clr Drug Dosing 176.75 mL/min Estimated GFR (MDRD) > 60.0 ml/min Glucose 107 H (74-106) mg/dL Calcium 7.9 L (8.5-10.1) mg/dL Total Bilirubin 1.9 H (0.2-1.0) mg/dL AST 22 (15-37) IU/L ALT 23 (14-63) IU/L Alkaline Phosphatase 45 L (46-116) U/L Total Protein 6.3 L (6.4-8.2) g/dL Albumin 2.9 L (3.4-5.0) g/dL Globulin 3.4 (2.0-3.5) g/dL Albumin/Globulin Ratio 0.9 L (1.3-2.8) Blood Type A POSITIVE Antibody Screen NEGATIVE Iftikhar Results Last 24 Hrs: Microbiology 10/03/17 16:08 Aerobic Blood Culture - Preliminary Blood - Venous - Lab Draw NO GROWTH AFTER 1 DAY Anaerobic Blood Culture - Preliminary NO GROWTH AFTER 1 DAY 10/03/17 16:02 Aerobic Blood Culture - Preliminary Blood - Venous NO GROWTH AFTER 1 DAY Anaerobic Blood Culture - Preliminary NO GROWTH AFTER 1 DAY Med Orders - Current: Current Medications Benzocaine/Menthol (Cepacol Sore Throat) 1 lozenge MUCMEM Q3H PRN PRN Reason: Sore Throat Last Admin: 10/04/17 13:22 Dose: 1 lozenge Fentanyl (Sublimaze) 50 mcg IVPUSH SEECOMMENT PRN PRN Reason: Pain Last Admin: 10/03/17 22:57 Dose: 50 mcg Hydromorphone HCl (Dilaudid) 0.5 mg IVPUSH SEECOMMENT PRN PRN Reason: Pain Sodium Chloride (Normal Saline) 1,000 mls @ 125 mls/hr IV STAT [facility] Last Admin: 10/03/17 17:43 Dose: 125 mls/hr Levofloxacin/Dextrose 750 mg/ (Premix) 150 mls @ 100 mls/hr IV Q24H [facility] Last Admin: 10/04/17 00:17 Dose: 100 mls/hr Metronidazole 500 mg/ Premix 100 mls @ 100 mls/hr IV QID [facility] Last Admin: 10/04/17 11:30 Dose: 100 mls/hr Lactated Ringer's (Ringers, Lactated) 1,000 mls @ 150 mls/hr IV ASDIRECTED [facility] Last Admin: 10/04/17 10:15 Dose: 150 mls/hr Morphine Sulfate (Morphine Manager [employer] 30 Mg In 30 Ml) 0 mg IV ASDIRECTED PRN; Protocol PRN Reason: Pain (severe 7-10) Last Admin: 10/03/17 23:40 Dose: 30 mg Ondansetron HCl (Zofran) 4 mg IVPUSH Q8H PRN PRN Reason: Nausea/Vomiting Last Admin: 10/04/17 10:22 Dose: 4 mg Pantoprazole Sodium (Protonix Iv) 40 mg IVPUSH DAILY [facility] Last Admin: 10/04/17 08:04 Dose: 40 mg Discontinued Medications Fentanyl (Sublimaze) Confirm Administered Dose 250 mcg .ROUTE .STK-MED ONE Stop: 10/03/17 19:31 Glycopyrrolate (Robinul) Confirm Administered Dose 0.4 mg .ROUTE .STK-MED ONE Stop: 10/03/17 21:55 Hydromorphone HCl (Dilaudid) Confirm Administered Dose 2 mg .ROUTE .STK-MED ONE Stop: 10/03/17 20:30 Sodium Chloride (Normal Saline) 1,000 mls @ 999 mls/hr IV STAT ONE Stop: 10/03/17 16:23 Last Admin: 10/03/17 15:34 Dose: 999 mls/hr Piperacillin Sod/Tazobactam (Sod 3.375 gm/ Sodium Chloride) 50 mls @ 100 mls/ hr IV ONETIME ONE Stop: 10/03/17 17:55 Last Admin: 10/03/17 17:41 Dose: 100 mls/hr Cefoxitin Sodium 2 gm/ Premix 50 mls @ 100 mls/hr IV ONETIME ONE Stop: 10/03/17 19:28 Last Admin: 10/03/17 19:32 Dose: 100 mls/hr Lactated Ringer's (Ringers, Lactated) 1,000 mls @ 150 mls/hr IV ONETIME ONE Stop: 10/04/17 01:38 Last Admin: 10/03/17 19:32 Dose: 150 mls/hr Bupivacaine HCl/Epinephrine Bitart (Sensorc Mpf 0.25%-Epi 1:697312) Confirm Administered Dose 30 mls @ as directed .ROUTE .STK-MED ONE Stop: 10/03/17 19:32 Ketorolac Tromethamine (Toradol) 30 mg IVPUSH ONETIME ONE Stop: 10/03/17 15:24 Last Admin: 10/03/17 15:33 Dose: 30 mg Lidocaine (Xylocaine-Mpf 2%) Confirm Administered Dose 5 ml .ROUTE .STK-MED ONE Stop: 10/03/17 19:31 Midazolam HCl (Versed 1 Mg/Ml) Confirm Administered Dose 2 mg .ROUTE .STK-MED ONE Stop: 10/03/17 19:31 Morphine Sulfate (Morphine) 4 mg IVPUSH ONETIME ONE Stop: 10/03/17 16:58 Last Admin: 10/03/17 17:08 Dose: 4 mg Morphine Sulfate (Morphine) 3 mg IVPUSH ONETIME ONE Stop: 10/03/17 19:35 Last Admin: 10/03/17 19:37 Dose: 3 mg Neostigmine Methylsulfate (Neostigmine) Confirm Administered Dose 5 mg .ROUTE .STK-MED ONE Stop: 10/03/17 21:55 Ondansetron HCl (Zofran) 8 mg IVPUSH ONETIME ONE Stop: 10/03/17 15:24 Last Admin: 10/03/17 15:33 Dose: 8 mg Ondansetron HCl (Zofran) Confirm Administered Dose 4 mg .ROUTE .STK-MED ONE Stop: 10/03/17 19:31 Propofol (Diprivan 20 Ml) Confirm Administered Dose 200 mg .ROUTE .STK-MED ONE Stop: 10/03/17 19:31 Rocuronium [place] (Zemuron) Confirm Administered Dose 100 mg .ROUTE .STK-MED ONE Stop: 10/03/17 19:31 Succinylcholine Chloride (Quelicin) Confirm Administered Dose 200 mg .ROUTE .STK -MED ONE Stop: 10/03/17 19:35 - Exam Lungs: Clear to Auscultation GI/Abdominal Exam: Soft (drsg cdi, abd w bowel sound) - Problem List Review Problem List Initiated/Reviewed/Updated: Yes - My Orders Last 24 Hours: Active Orders 24 hr Category Date Time Status Admission Status [Patient Status] [ADT] Routine ADT 10/03/17 22:42 Active Admission Status [Patient Status] [ADT] Stat ADT 10/03/17 20:06 Active Communication Order [RC] ROUTINE Care 10/03/17 22:40 Active Communication Order [RC] STAT Care 10/03/17 18:59 Active Communication Order [RC] STAT Care 10/03/17 22:36 Active Communication Order [RC] STAT Care 10/03/17 22:36 Active Notify Provider Consults [RC] ASDIRECTED Care 10/03/17 17:36 Active Notify Provider [RC] PRN Care 10/03/17 22:36 Active Notify Provider [RC] PRN Care 10/03/17 22:36 Active Pulse Oximetry [RC] CONTINUOUS Care 10/03/17 22:36 Active Pulse Oximetry [RC] CONTINUOUS Care 10/03/17 22:36 Active Consult to Physician [CONS] Stat Cons 10/03/17 17:35 Active NPO Now [Nothing per Oral Now Diet] [DIET] Diet 10/04/17 Breakfast Active CBC WITH AUTO DIFF [HEME] AM Lab 10/05/17 05:11 Ordered COMPREHENSIVE METABOLIC PN,CMP [CHEM] AM Lab 10/05/17 05:11 Ordered CULTURE BLOOD [BC] Stat Lab 10/03/17 16:02 Results CULTURE BLOOD [BC] Stat Lab 10/03/17 16:08 Results Benzocaine/Cetylpyrd/Menthol [Cepacol Sore Throat] Med 10/04/17 08:44 Active 1 lozenge MUCMEM Q3H PRN HYDROmorphone [Dilaudid] Med 10/03/17 20:43 Active 0.5 mg IVPUSH SEECOMMENT PRN Lactated Ringers [Ringers, Lactated] 1,000 ml Med 10/03/17 22:45 Active IV ASDIRECTED Levofloxacin/Dextrose 5%-Water [Levaquin in D5W 750 MG/ Med 10/03/17 22:00 Active 150 ML] 750 mg Premix Bag 1 bag IV Q24H Morphine PF [Morphine CARCASS SPLITTER 30 MG in 30 ML] Med 10/03/17 22:36 Active See Protocol IV ASDIRECTED PRN Ondansetron [Zofran] Med 10/03/17 22:38 Active 4 mg IVPUSH Q8H PRN Pantoprazole [ProTONIX IV] Med 10/04/17 09:00 Active 40 mg IVPUSH DAILY Sodium Chloride 0.9% [Normal Saline] 1,000 ml Med 10/03/17 17:30 Active IV STAT fentaNYL [Sublimaze] Med 10/03/17 20:43 Active 50 mcg IVPUSH SEECOMMENT PRN metroNIDAZOLE/Normal Saline [Flagyl 500 MG in NS 100 ML Med 10/04/17 00:00 Active ] 500 mg Premix Bag 1 bag IV QID Blood Culture x2 Reflex Set [OM.PC] Stat Oth 10/03/17 15:43 Ordered Medication Discontinuation Instructions [OM.PC] Stat Oth 10/03/17 22:36 Ordered Medication Discontinuation Instructions [OM.PC] Stat Oth 10/03/17 22:36 Ordered Nasogastric Orogastric Tube Removal [OM.PC] Routine Oth 10/04/17 11:40 Ordered Medication Orders Benzocaine/Menthol (Cepacol Sore Throat) 1 lozenge MUCMEM Q3H PRN PRN Reason: Sore Throat Last Admin: 10/04/17 13:22 Dose: 1 lozenge Admin: 10/04/17 10:16 Dose: 1 lozenge Fentanyl (Sublimaze) 50 mcg IVPUSH SEECOMMENT PRN PRN Reason: Pain Last Admin: 10/03/17 22:57 Dose: 50 mcg Admin: 10/03/17 22:46 Dose: 50 mcg Hydromorphone HCl (Dilaudid) 0.5 mg IVPUSH SEECOMMENT PRN PRN Reason: Pain Sodium Chloride (Normal Saline) 1,000 mls @ 125 mls/hr IV STAT [facility] Last Admin: 10/03/17 17:43 Dose: 125 mls/hr Levofloxacin/Dextrose 750 mg/ (Premix) 150 mls @ 100 mls/hr IV Q24H [facility] Last Admin: 10/04/17 00:17 Dose: 100 mls/hr Metronidazole 500 mg/ Premix 100 mls @ 100 mls/hr IV QID [facility] Last Admin: 10/04/17 11:30 Dose: 100 mls/hr Infusion: 10/04/17 07:56 Dose: 100 mls/hr Admin: 10/04/17 06:56 Dose: 100 mls/hr Infusion: 10/04/17 02:54 Dose: 100 mls/hr Admin: 10/04/17 01:54 Dose: 100 mls/hr Lactated Ringer's (Ringers, Lactated) 1,000 mls @ 150 mls/hr IV ASDIRECTED [facility] Last Admin: 10/04/17 10:15 Dose: 150 mls/hr Infusion: 10/04/17 06:28 Dose: 150 mls/hr Admin: 10/03/17 23:47 Dose: 150 mls/hr Morphine Sulfate (Morphine Manager [employer] 30 Mg In 30 Ml) 0 mg IV ASDIRECTED PRN; Protocol PRN Reason: Pain (severe 7-10) Last Admin: 10/03/17 23:40 Dose: 30 mg Ondansetron HCl (Zofran) 4 mg IVPUSH Q8H PRN PRN Reason: Nausea/Vomiting Last Admin: 10/04/17 10:22 Dose: 4 mg Pantoprazole Sodium (Protonix Iv) 40 mg IVPUSH DAILY [facility] Last Admin: 10/04/17 08:04 Dose: 40 mg - Assessment Assessment (Free Text/Narrative):: pod#1 ex lap for perforated bowel; doing well, ngt put out minimal, dc ed; avss , abd exam benign; wbc 11; continue abx; await more bowel function, encourage ambulation - Plan Plan (Free Text/Narrative):: pod#1 ex lap for perforated bowel; doing well, ngt put out minimal, dc ed; avss , abd exam benign; wbc 11; continue abx; await more bowel function, encourage ambulation
[2017-10-04] MEDS: Morphine PF 30 MG/30 ML PCA Vial IV PRN (23:14)
[2017-10-05] MEDS: metroNIDAZOLE/Normal Saline 500 MG in Premix Bag 1 BAG IV SCH ×4 (00:50→17:15)
[2017-10-05] MEDS: Lactated Ringers 1,000 ML IV SCH ×3 (03:31→20:10)
[2017-10-05] MEDS: Ondansetron 4 MG/2 ML SDV IVPUSH PRN ×3 (06:21→21:46)
[2017-10-05 06:37] LABS: CHLORIDE,CL 104 mmol/L (98-107); SODIUM,NA 140 mmol/L (136-148)
[2017-10-05] MEDS: Pantoprazole 40 MG Vial IVPUSH SCH (08:34)
--- NOTE | 2017-10-05 13:36 | PCM.SURGPN ---
- General Info Date of Service: 10/05/17 POD#: 2 Post-Op Diagnosis: perf viscus Functional Status: Reports: Pain Controlled - Review of Systems General: Reports: No Symptoms (some flatus) Gastrointestinal: Reports: Flatus - Patient Data Vitals - Most Recent: Last Vital Signs Temp 98.5 F 10/05/17 12:00 Pulse 98 10/05/17 12:00 Resp 18 10/05/17 12:00 BP 127/67 10/05/17 12:00 Pulse Ox 95 10/05/17 12:00 Weight - Most Recent: 219 lb 4.8 oz I&O - Last 24 Hours: Intake & Output 10/04/17 10/05/17 10/05/17 22:59 06:59 14:59 Intake Total 150 1249 1099 Output Total 3160 2525 Balance -3010 -1276 1099 Lab Results Last 24 Hrs: Laboratory Results - last 24 hr 10/05/17 10/05/17 Range/Units 05:06 05:06 WBC 9.96 (4.0-11.0) K/uL RBC 4.35 L (4.50-5.90) M/uL Hgb 13.0 (13.0-17.0) g/dL Hct 38.3 (38.0-50.0) % MCV 88.0 (80.0-98.0) fL MCH 29.9 (27.0-32.0) pg MCHC 33.9 (31.0-37.0) g/dL RDW Std Deviation 41.7 (28.0-62.0) fl RDW Coeff of Enrrique 13 (11.0-15.0) % Plt Count 163 (150-400) K/uL MPV 9.80 (7.40-12.00) fL Neut % (Auto) 87.2 H (48.0-80.0) % Lymph % (Auto) 5.9 L (16.0-40.0) % [place] % (Auto) 6.6 (0.0-15.0) % Eos % (Auto) 0.1 (0.0-7.0) % Baso % (Auto) 0.2 (0.0-1.5) % Neut # (Auto) 8.7 H (1.4-5.7) K/uL Lymph # (Auto) 0.6 (0.6-2.4) K/uL [place] # (Auto) 0.7 (0.0-0.8) K/uL Eos # (Auto) 0.0 (0.0-0.7) K/uL Baso # (Auto) 0.0 (0.0-0.1) K/uL Nucleated RBC % 0.0 /100WBC Nucleated RBCs # 0 K/uL Sodium 140 (136-148) mmol/L Potassium 3.8 (3.5-5.1) mmol/L Chloride 104 (98-107) mmol/L Carbon Dioxide 24.3 (21.0-32.0) mmol/L BUN 5 L (7.0-18.0) mg/dL Creatinine 0.7 L (0.8-1.3) mg/dL Est Cr Clr Drug Dosing 151.50 mL/min Estimated GFR (MDRD) > 60.0 ml/min Glucose 98 (74-106) mg/dL Calcium 8.8 (8.5-10.1) mg/dL Total Bilirubin 1.3 H (0.2-1.0) mg/dL AST 23 (15-37) IU/L ALT 20 (14-63) IU/L Alkaline Phosphatase 53 (46-116) U/L Total Protein 7.0 (6.4-8.2) g/dL Albumin 3.0 L (3.4-5.0) g/dL Globulin 4.0 H (2.0-3.5) g/dL Albumin/Globulin Ratio 0.8 L (1.3-2.8) Iftikhar Results Last 24 Hrs: Microbiology 10/03/17 16:08 Aerobic Blood Culture - Preliminary Blood - Venous - Lab Draw NO GROWTH AFTER 1 DAY Anaerobic Blood Culture - Preliminary NO GROWTH AFTER 1 DAY 10/03/17 16:02 Aerobic Blood Culture - Preliminary Blood - Venous NO GROWTH AFTER 1 DAY Anaerobic Blood Culture - Preliminary NO GROWTH AFTER 1 DAY Med Orders - Current: Current Medications Benzocaine/Menthol (Cepacol Sore Throat) 1 lozenge MUCMEM Q3H PRN PRN Reason: Sore Throat Last Admin: 10/04/17 13:22 Dose: 1 lozenge Fentanyl (Sublimaze) 50 mcg IVPUSH SEECOMMENT PRN PRN Reason: Pain Last Admin: 10/03/17 22:57 Dose: 50 mcg Hydromorphone HCl (Dilaudid) 0.5 mg IVPUSH SEECOMMENT PRN PRN Reason: Pain Sodium Chloride (Normal Saline) 1,000 mls @ 125 mls/hr IV STAT [facility] Last Admin: 10/03/17 17:43 Dose: 125 mls/hr Levofloxacin/Dextrose 750 mg/ (Premix) 150 mls @ 100 mls/hr IV Q24H [facility] Last Admin: 10/04/17 21:37 Dose: 100 mls/hr Metronidazole 500 mg/ Premix 100 mls @ 100 mls/hr IV QID [facility] Last Admin: 10/05/17 11:16 Dose: 100 mls/hr Lactated Ringer's (Ringers, Lactated) 1,000 mls @ 150 mls/hr IV ASDIRECTED [facility] Last Admin: 10/05/17 11:15 Dose: 150 mls/hr Morphine Sulfate (Morphine Manager Respiratory 30 Mg In 30 Ml) 0 mg IV ASDIRECTED PRN; Protocol PRN Reason: Pain (severe 7-10) Last Admin: 10/04/17 23:14 Dose: 30 mg Ondansetron HCl (Zofran) 4 mg IVPUSH Q8H PRN PRN Reason: Nausea/Vomiting Last Admin: 10/05/17 06:21 Dose: 4 mg Pantoprazole Sodium (Protonix Iv) 40 mg IVPUSH DAILY [facility] Last Admin: 10/05/17 08:34 Dose: 40 mg Discontinued Medications Fentanyl (Sublimaze) Confirm Administered Dose 250 mcg .ROUTE .STK-MED ONE Stop: 10/03/17 19:31 Glycopyrrolate (Robinul) Confirm Administered Dose 0.4 mg .ROUTE .STK-MED ONE Stop: 10/03/17 21:55 Hydromorphone HCl (Dilaudid) Confirm Administered Dose 2 mg .ROUTE .STK-MED ONE Stop: 10/03/17 20:30 Sodium Chloride (Normal Saline) 1,000 mls @ 999 mls/hr IV STAT ONE Stop: 10/03/17 16:23 Last Admin: 10/03/17 15:34 Dose: 999 mls/hr Piperacillin Sod/Tazobactam (Sod 3.375 gm/ Sodium Chloride) 50 mls @ 100 mls/ hr IV ONETIME ONE Stop: 10/03/17 17:55 Last Admin: 10/03/17 17:41 Dose: 100 mls/hr Cefoxitin Sodium 2 gm/ Premix 50 mls @ 100 mls/hr IV ONETIME ONE Stop: 10/03/17 19:28 Last Admin: 10/03/17 19:32 Dose: 100 mls/hr Lactated Ringer's (Ringers, Lactated) 1,000 mls @ 150 mls/hr IV ONETIME ONE Stop: 10/04/17 01:38 Last Admin: 10/03/17 19:32 Dose: 150 mls/hr Bupivacaine HCl/Epinephrine Bitart (Sensorc Mpf 0.25%-Epi 1:600939) Confirm Administered Dose 30 mls @ as directed .ROUTE .STK-MED ONE Stop: 10/03/17 19:32 Ketorolac Tromethamine (Toradol) 30 mg IVPUSH ONETIME ONE Stop: 10/03/17 15:24 Last Admin: 10/03/17 15:33 Dose: 30 mg Lidocaine (Xylocaine-Mpf 2%) Confirm Administered Dose 5 ml .ROUTE .STK-MED ONE Stop: 10/03/17 19:31 Midazolam HCl (Versed 1 Mg/Ml) Confirm Administered Dose 2 mg .ROUTE .STK-MED ONE Stop: 10/03/17 19:31 Morphine Sulfate (Morphine) 4 mg IVPUSH ONETIME ONE Stop: 10/03/17 16:58 Last Admin: 10/03/17 17:08 Dose: 4 mg Morphine Sulfate (Morphine) 3 mg IVPUSH ONETIME ONE Stop: 10/03/17 19:35 Last Admin: 10/03/17 19:37 Dose: 3 mg Neostigmine Methylsulfate (Neostigmine) Confirm Administered Dose 5 mg .ROUTE .STK-MED ONE Stop: 10/03/17 21:55 Ondansetron HCl (Zofran) 8 mg IVPUSH ONETIME ONE Stop: 10/03/17 15:24 Last Admin: 10/03/17 15:33 Dose: 8 mg Ondansetron HCl (Zofran) Confirm Administered Dose 4 mg .ROUTE .STK-MED ONE Stop: 10/03/17 19:31 Propofol (Diprivan 20 Ml) Confirm Administered Dose 200 mg .ROUTE .STK-MED ONE Stop: 10/03/17 19:31 Rocuronium [place] (Zemuron) Confirm Administered Dose 100 mg .ROUTE .STK-MED ONE Stop: 10/03/17 19:31 Succinylcholine Chloride (Quelicin) Confirm Administered Dose 200 mg .ROUTE .STK -MED ONE Stop: 10/03/17 19:35 - Exam General: Alert, Oriented Neck: Supple GI/Abdominal Exam: No Distention - Problem List Review Problem List Initiated/Reviewed/Updated: Yes - My Orders Last 24 Hours: Active Orders 24 hr Category Date Time Status Communication Order [RC] DAILY Care 10/05/17 10:13 Active Communication Order [RC] ROUTINE Care 10/05/17 13:34 Ordered Medication Orders Benzocaine/Menthol (Cepacol Sore Throat) 1 lozenge MUCMEM Q3H PRN PRN Reason: Sore Throat Last Admin: 10/04/17 13:22 Dose: 1 lozenge Admin: 10/04/17 10:16 Dose: 1 lozenge Fentanyl (Sublimaze) 50 mcg IVPUSH SEECOMMENT PRN PRN Reason: Pain Last Admin: 10/03/17 22:57 Dose: 50 mcg Admin: 10/03/17 22:46 Dose: 50 mcg Hydromorphone HCl (Dilaudid) 0.5 mg IVPUSH SEECOMMENT PRN PRN Reason: Pain Sodium Chloride (Normal Saline) 1,000 mls @ 125 mls/hr IV STAT [facility] Last Admin: 10/03/17 17:43 Dose: 125 mls/hr Levofloxacin/Dextrose 750 mg/ (Premix) 150 mls @ 100 mls/hr IV Q24H [facility] Last Admin: 10/04/17 21:37 Dose: 100 mls/hr Infusion: 10/04/17 01:47 Dose: 100 mls/hr Admin: 10/04/17 00:17 Dose: 100 mls/hr Metronidazole 500 mg/ Premix 100 mls @ 100 mls/hr IV QID [facility] Last Admin: 10/05/17 11:16 Dose: 100 mls/hr Infusion: 10/05/17 07:15 Dose: 100 mls/hr Admin: 10/05/17 06:15 Dose: 100 mls/hr Infusion: 10/05/17 01:50 Dose: 100 mls/hr Admin: 10/05/17 00:50 Dose: 100 mls/hr Infusion: 10/04/17 18:43 Dose: 100 mls/hr Admin: 10/04/17 17:43 Dose: 100 mls/hr Infusion: 10/04/17 12:30 Dose: 100 mls/hr Admin: 10/04/17 11:30 Dose: 100 mls/hr Infusion: 10/04/17 07:56 Dose: 100 mls/hr Admin: 10/04/17 06:56 Dose: 100 mls/hr Infusion: 10/04/17 02:54 Dose: 100 mls/hr Admin: 10/04/17 01:54 Dose: 100 mls/hr Lactated Ringer's (Ringers, Lactated) 1,000 mls @ 150 mls/hr IV ASDIRECTED [facility] Last Admin: 10/05/17 11:15 Dose: 150 mls/hr Infusion: 10/05/17 10:12 Dose: 150 mls/hr Admin: 10/05/17 03:31 Dose: 150 mls/hr Infusion: 10/05/17 00:32 Dose: 150 mls/hr Admin: 10/04/17 17:51 Dose: 150 mls/hr Infusion: 10/04/17 16:56 Dose: 150 mls/hr Admin: 10/04/17 10:15 Dose: 150 mls/hr Infusion: 10/04/17 06:28 Dose: 150 mls/hr Admin: 10/03/17 23:47 Dose: 150 mls/hr Morphine Sulfate (Morphine Manager Respiratory 30 Mg In 30 Ml) 0 mg IV ASDIRECTED PRN; Protocol PRN Reason: Pain (severe 7-10) Last Admin: 10/04/17 23:14 Dose: 30 mg Admin: 10/03/17 23:40 Dose: 30 mg Ondansetron HCl (Zofran) 4 mg IVPUSH Q8H PRN PRN Reason: Nausea/Vomiting Last Admin: 10/05/17 06:21 Dose: 4 mg Admin: 10/04/17 21:37 Dose: 4 mg Admin: 10/04/17 10:22 Dose: 4 mg Pantoprazole Sodium (Protonix Iv) 40 mg IVPUSH DAILY [facility] Last Admin: 10/05/17 08:34 Dose: 40 mg Admin: 10/04/17 08:04 Dose: 40 mg - Assessment Assessment (Free Text/Narrative):: pod#2 ex lap for perf viscus; start sips of clear today; if jesenia, advance; avss, wound w drsg; relax abd binder, encourage ambulation - Plan Plan (Free Text/Narrative):: pod#2 ex lap for perf viscus; start sips of clear today; if jesenia, advance; avss, wound w drsg; relax abd binder, encourage ambulation
[2017-10-05] MEDS: Temazepam 15 MG Cap PO PRN (19:59)
[2017-10-05] MEDS: Levofloxacin/Dextrose 5%-Water 750 MG in Premix Bag 1 BAG IV SCH (21:15)
[2017-10-06] MEDS: metroNIDAZOLE/Normal Saline 500 MG in Premix Bag 1 BAG IV SCH ×4 (01:03→17:59)
[2017-10-06] MEDS: Lactated Ringers 1,000 ML IV SCH ×3 (05:11→21:50)
[2017-10-06 05:54] LABS: CHLORIDE,CL 104 mmol/L (98-107); SODIUM,NA 139 mmol/L (136-148)
[2017-10-06] MEDS: Pantoprazole 40 MG Vial IVPUSH SCH (08:22)
--- NOTE | 2017-10-06 09:36 | PCM.SURGPN ---
- General Info Date of Service: 10/06/17 POD#: 3 Functional Status: Reports: Pain Controlled (BM X 2) - Review of Systems Cardiovascular: Reports: No Symptoms Gastrointestinal: Reports: Flatus - Patient Data Vitals - Most Recent: Last Vital Signs Temp 98.1 F 10/06/17 08:28 Pulse 84 10/06/17 08:28 Resp 20 10/06/17 08:28 BP 144/97 H 10/06/17 08:28 Pulse Ox 96 10/06/17 08:28 Weight - Most Recent: 216 lb 0.848 oz I&O - Last 24 Hours: Intake & Output 10/05/17 10/06/17 10/06/17 22:59 06:59 14:59 Intake Total 540 3027 Output Total 760 475 Balance -220 2552 Lab Results Last 24 Hrs: Laboratory Results - last 24 hr 10/06/17 10/06/17 Range/Units 05:11 05:11 WBC 8.31 (4.0-11.0) K/uL RBC 4.56 (4.50-5.90) M/uL Hgb 13.8 (13.0-17.0) g/dL Hct 39.5 (38.0-50.0) % MCV 86.6 (80.0-98.0) fL MCH 30.3 (27.0-32.0) pg MCHC 34.9 (31.0-37.0) g/dL RDW Std Deviation 40.4 (28.0-62.0) fl RDW Coeff of Enrrique 13 (11.0-15.0) % Plt Count 181 (150-400) K/uL MPV 9.40 (7.40-12.00) fL Neut % (Auto) 85.5 H (48.0-80.0) % Lymph % (Auto) 7.1 L (16.0-40.0) % [place] % (Auto) 7.3 (0.0-15.0) % Eos % (Auto) 0.0 (0.0-7.0) % Baso % (Auto) 0.1 (0.0-1.5) % Neut # (Auto) 7.1 H (1.4-5.7) K/uL Lymph # (Auto) 0.6 (0.6-2.4) K/uL [place] # (Auto) 0.6 (0.0-0.8) K/uL Eos # (Auto) 0.0 (0.0-0.7) K/uL Baso # (Auto) 0.0 (0.0-0.1) K/uL Nucleated RBC % 0.0 /100WBC Nucleated RBCs # 0 K/uL Sodium 139 (136-148) mmol/L Potassium 3.5 (3.5-5.1) mmol/L Chloride 104 (98-107) mmol/L Carbon Dioxide 26.5 (21.0-32.0) mmol/L BUN 11 (7.0-18.0) mg/dL Creatinine 0.7 L (0.8-1.3) mg/dL Est Cr Clr Drug Dosing 151.50 mL/min Estimated GFR (MDRD) > 60.0 ml/min Glucose 122 H (74-106) mg/dL Calcium 8.7 (8.5-10.1) mg/dL Total Bilirubin 1.0 (0.2-1.0) mg/dL AST 18 (15-37) IU/L ALT 17 (14-63) IU/L Alkaline Phosphatase 48 (46-116) U/L Total Protein 6.7 (6.4-8.2) g/dL Albumin 2.6 L (3.4-5.0) g/dL Globulin 4.1 H (2.0-3.5) g/dL Albumin/Globulin Ratio 0.6 L (1.3-2.8) Iftikhar Results Last 24 Hrs: Microbiology 10/03/17 16:08 Aerobic Blood Culture - Preliminary Blood - Venous - Lab Draw NO GROWTH AFTER 2 DAYS Anaerobic Blood Culture - Preliminary NO GROWTH AFTER 2 DAYS 10/03/17 16:02 Aerobic Blood Culture - Preliminary Blood - Venous NO GROWTH AFTER 2 DAYS Anaerobic Blood Culture - Preliminary NO GROWTH AFTER 2 DAYS Med Orders - Current: Current Medications Benzocaine/Menthol (Cepacol Sore Throat) 1 lozenge MUCMEM Q3H PRN PRN Reason: Sore Throat Last Admin: 10/04/17 13:22 Dose: 1 lozenge Fentanyl (Sublimaze) 50 mcg IVPUSH SEECOMMENT PRN PRN Reason: Pain Last Admin: 10/03/17 22:57 Dose: 50 mcg Hydromorphone HCl (Dilaudid) 0.5 mg IVPUSH SEECOMMENT PRN PRN Reason: Pain Sodium Chloride (Normal Saline) 1,000 mls @ 125 mls/hr IV STAT [facility] Last Admin: 10/03/17 17:43 Dose: 125 mls/hr Levofloxacin/Dextrose 750 mg/ (Premix) 150 mls @ 100 mls/hr IV Q24H [facility] Last Admin: 10/05/17 21:15 Dose: 100 mls/hr Metronidazole 500 mg/ Premix 100 mls @ 100 mls/hr IV QID [facility] Last Admin: 10/06/17 05:08 Dose: 100 mls/hr Lactated Ringer's (Ringers, Lactated) 1,000 mls @ 150 mls/hr IV ASDIRECTED [facility] Last Admin: 10/06/17 05:11 Dose: 150 mls/hr Morphine Sulfate (Morphine Yeast Fermentation Attendant 30 Mg In 30 Ml) 0 mg IV ASDIRECTED PRN; Protocol PRN Reason: Pain (severe 7-10) Last Admin: 10/04/17 23:14 Dose: 30 mg Ondansetron HCl (Zofran) 4 mg IVPUSH Q8H PRN PRN Reason: Nausea/Vomiting Last Admin: 10/05/17 21:46 Dose: 4 mg Pantoprazole Sodium (Protonix Iv) 40 mg IVPUSH DAILY [facility] Last Admin: 10/06/17 08:22 Dose: 40 mg Temazepam (Restoril) 15 mg PO BEDTIME PRN PRN Reason: Insomnia Last Admin: 10/05/17 19:59 Dose: 15 mg Discontinued Medications Fentanyl (Sublimaze) Confirm Administered Dose 250 mcg .ROUTE .STK-MED ONE Stop: 10/03/17 19:31 Glycopyrrolate (Robinul) Confirm Administered Dose 0.4 mg .ROUTE .STK-MED ONE Stop: 10/03/17 21:55 Hydromorphone HCl (Dilaudid) Confirm Administered Dose 2 mg .ROUTE .STK-MED ONE Stop: 10/03/17 20:30 Sodium Chloride (Normal Saline) 1,000 mls @ 999 mls/hr IV STAT ONE Stop: 10/03/17 16:23 Last Admin: 10/03/17 15:34 Dose: 999 mls/hr Piperacillin Sod/Tazobactam (Sod 3.375 gm/ Sodium Chloride) 50 mls @ 100 mls/ hr IV ONETIME ONE Stop: 10/03/17 17:55 Last Admin: 10/03/17 17:41 Dose: 100 mls/hr Cefoxitin Sodium 2 gm/ Premix 50 mls @ 100 mls/hr IV ONETIME ONE Stop: 10/03/17 19:28 Last Admin: 10/03/17 19:32 Dose: 100 mls/hr Lactated Ringer's (Ringers, Lactated) 1,000 mls @ 150 mls/hr IV ONETIME ONE Stop: 10/04/17 01:38 Last Admin: 10/03/17 19:32 Dose: 150 mls/hr Bupivacaine HCl/Epinephrine Bitart (Sensorc Mpf 0.25%-Epi 1:[id number]) Confirm Administered Dose 30 mls @ as directed .ROUTE .STK-MED ONE Stop: 10/03/17 19:32 Ketorolac Tromethamine (Toradol) 30 mg IVPUSH ONETIME ONE Stop: 10/03/17 15:24 Last Admin: 10/03/17 15:33 Dose: 30 mg Lidocaine (Xylocaine-Mpf 2%) Confirm Administered Dose 5 ml .ROUTE .STK-MED ONE Stop: 10/03/17 19:31 Midazolam HCl (Versed 1 Mg/Ml) Confirm Administered Dose 2 mg .ROUTE .STK-MED ONE Stop: 10/03/17 19:31 Morphine Sulfate (Morphine) 4 mg IVPUSH ONETIME ONE Stop: 10/03/17 16:58 Last Admin: 10/03/17 17:08 Dose: 4 mg Morphine Sulfate (Morphine) 3 mg IVPUSH ONETIME ONE Stop: 10/03/17 19:35 Last Admin: 10/03/17 19:37 Dose: 3 mg Neostigmine Methylsulfate (Neostigmine) Confirm Administered Dose 5 mg .ROUTE .STK-MED ONE Stop: 10/03/17 21:55 Ondansetron HCl (Zofran) 8 mg IVPUSH ONETIME ONE Stop: 10/03/17 15:24 Last Admin: 10/03/17 15:33 Dose: 8 mg Ondansetron HCl (Zofran) Confirm Administered Dose 4 mg .ROUTE .STK-MED ONE Stop: 10/03/17 19:31 Propofol (Diprivan 20 Ml) Confirm Administered Dose 200 mg .ROUTE .STK-MED ONE Stop: 10/03/17 19:31 Rocuronium Caspar (Zemuron) Confirm Administered Dose 100 mg .ROUTE .STK-MED ONE Stop: 10/03/17 19:31 Succinylcholine Chloride (Quelicin) Confirm Administered Dose 200 mg .ROUTE .STK -MED ONE Stop: 10/03/17 19:35 - Exam Wound/Incisions: No Drainage General: Alert, Oriented Neck: Supple GI/Abdominal Exam: No Distention (dec BS, wound cdi, sta) - Problem List Review Problem List Initiated/Reviewed/Updated: Yes - My Orders Last 24 Hours: Active Orders 24 hr Category Date Time Status Communication Order [RC] DAILY Care 10/05/17 10:13 Active Communication Order [RC] ROUTINE Care 10/05/17 13:34 Active Communication Order [RC] ROUTINE Care 10/06/17 09:25 Ordered Temazepam [Restoril] Med 10/05/17 17:25 Active 15 mg PO BEDTIME PRN Medication Orders Benzocaine/Menthol (Cepacol Sore Throat) 1 lozenge MUCMEM Q3H PRN PRN Reason: Sore Throat Last Admin: 10/04/17 13:22 Dose: 1 lozenge Admin: 10/04/17 10:16 Dose: 1 lozenge Fentanyl (Sublimaze) 50 mcg IVPUSH SEECOMMENT PRN PRN Reason: Pain Last Admin: 10/03/17 22:57 Dose: 50 mcg Admin: 10/03/17 22:46 Dose: 50 mcg Hydromorphone HCl (Dilaudid) 0.5 mg IVPUSH SEECOMMENT PRN PRN Reason: Pain Sodium Chloride (Normal Saline) 1,000 mls @ 125 mls/hr IV STAT [facility] Last Admin: 10/03/17 17:43 Dose: 125 mls/hr Levofloxacin/Dextrose 750 mg/ (Premix) 150 mls @ 100 mls/hr IV Q24H [facility] Last Admin: 10/05/17 21:15 Dose: 100 mls/hr Infusion: 10/04/17 23:07 Dose: 100 mls/hr Admin: 10/04/17 21:37 Dose: 100 mls/hr Infusion: 10/04/17 01:47 Dose: 100 mls/hr Admin: 10/04/17 00:17 Dose: 100 mls/hr Metronidazole 500 mg/ Premix 100 mls @ 100 mls/hr IV QID [facility] Last Admin: 10/06/17 05:08 Dose: 100 mls/hr Infusion: 10/06/17 02:03 Dose: 100 mls/hr Admin: 10/06/17 01:03 Dose: 100 mls/hr Infusion: 10/05/17 18:15 Dose: 100 mls/hr Admin: 10/05/17 17:15 Dose: 100 mls/hr Infusion: 10/05/17 12:16 Dose: 100 mls/hr Admin: 10/05/17 11:16 Dose: 100 mls/hr Infusion: 10/05/17 07:15 Dose: 100 mls/hr Admin: 10/05/17 06:15 Dose: 100 mls/hr Infusion: 10/05/17 01:50 Dose: 100 mls/hr Admin: 10/05/17 00:50 Dose: 100 mls/hr Infusion: 10/04/17 18:43 Dose: 100 mls/hr Admin: 10/04/17 17:43 Dose: 100 mls/hr Infusion: 10/04/17 12:30 Dose: 100 mls/hr Admin: 10/04/17 11:30 Dose: 100 mls/hr Infusion: 10/04/17 07:56 Dose: 100 mls/hr Admin: 10/04/17 06:56 Dose: 100 mls/hr Infusion: 10/04/17 02:54 Dose: 100 mls/hr Admin: 10/04/17 01:54 Dose: 100 mls/hr Lactated Ringer's (Ringers, Lactated) 1,000 mls @ 150 mls/hr IV ASDIRECTED [facility] Last Admin: 10/06/17 05:11 Dose: 150 mls/hr Infusion: 10/06/17 02:51 Dose: 150 mls/hr Admin: 10/05/17 20:10 Dose: 150 mls/hr Infusion: 10/05/17 17:56 Dose: 150 mls/hr Admin: 10/05/17 11:15 Dose: 150 mls/hr Infusion: 10/05/17 10:12 Dose: 150 mls/hr Admin: 10/05/17 03:31 Dose: 150 mls/hr Infusion: 10/05/17 00:32 Dose: 150 mls/hr Admin: 10/04/17 17:51 Dose: 150 mls/hr Infusion: 10/04/17 16:56 Dose: 150 mls/hr Admin: 10/04/17 10:15 Dose: 150 mls/hr Infusion: 10/04/17 06:28 Dose: 150 mls/hr Admin: 10/03/17 23:47 Dose: 150 mls/hr Morphine Sulfate (Morphine Yeast Fermentation Attendant 30 Mg In 30 Ml) 0 mg IV ASDIRECTED PRN; Protocol PRN Reason: Pain (severe 7-10) Last Admin: 10/04/17 23:14 Dose: 30 mg Admin: 10/03/17 23:40 Dose: 30 mg Ondansetron HCl (Zofran) 4 mg IVPUSH Q8H PRN PRN Reason: Nausea/Vomiting Last Admin: 10/05/17 21:46 Dose: 4 mg Admin: 10/05/17 14:06 Dose: 4 mg Admin: 10/05/17 06:21 Dose: 4 mg Admin: 10/04/17 21:37 Dose: 4 mg Admin: 10/04/17 10:22 Dose: 4 mg Pantoprazole Sodium (Protonix Iv) 40 mg IVPUSH DAILY [facility] Last Admin: 10/06/17 08:22 Dose: 40 mg Admin: 10/05/17 08:34 Dose: 40 mg Admin: 10/04/17 08:04 Dose: 40 mg Temazepam (Restoril) 15 mg PO BEDTIME PRN PRN Reason: Insomnia Last Admin: 10/05/17 19:59 Dose: 15 mg - Assessment Assessment (Free Text/Narrative):: pod#3 xlap, doing well, amb w asst; bm X 2, wbc 8, h/h stable; advance diet to clear liquid; dc manager billing/bonds; encourage amb, percocet for pain; - Plan Plan (Free Text/Narrative):: pod#3 xlap, doing well, amb w asst; bm X 2, wbc 8, h/h stable; advance diet to clear liquid; dc manager billing/bonds; encourage amb, percocet for pain;
[2017-10-06] MEDS: Ondansetron 4 MG/2 ML SDV IVPUSH PRN (10:16)
[2017-10-06] MEDS ORDERED: Diazepam 2 MG Tab PO ONE (11:25)
[2017-10-06] MEDS: Acetaminophen/oxyCODONE 325-5 MG Tab PO PRN ×2 (12:06→20:03)
[2017-10-06] MEDS ORDERED: Acetaminophen/oxyCODONE 325-5 MG Tab PO ONE (14:45)
[2017-10-06] MEDS ORDERED: chlorproMAZINE 50 MG Tab PO ONE (19:09)
[2017-10-06] MEDS: Temazepam 15 MG Cap PO PRN (21:54)
[2017-10-06] MEDS: Levofloxacin/Dextrose 5%-Water 750 MG in Premix Bag 1 BAG IV SCH (21:54)
[2017-10-07] MEDS: metroNIDAZOLE/Normal Saline 500 MG in Premix Bag 1 BAG IV SCH ×3 (00:34→11:44)
[2017-10-07] MEDS: Acetaminophen/oxyCODONE 325-5 MG Tab PO PRN ×2 (02:29→10:54)
[2017-10-07] MEDS: Lactated Ringers 1,000 ML IV SCH (08:42)
[2017-10-07] MEDS: Pantoprazole 40 MG Vial IVPUSH SCH (08:47)
[2017-10-07] MEDS: Ondansetron 4 MG/2 ML SDV IVPUSH PRN (10:55)
[2017-10-07 11:23] VITALS: BP 127/72
[2017-10-07] MEDS ORDERED: Lactated Ringers 1,000 ML IV SCH (11:30)
--- NOTE | 2017-10-24 17:33 | DISCH ---
DATE OF DISCHARGE: 10/07/2017 PRIMARY CARE PHYSICIAN: Gilda PCP DIAGNOSIS: Perforated viscus. Please refer to the admission history and physical for details. SUMMARY: The patient presented to the emergency room with abdominal pain, and the patient clearly mentioned that it was happening at 3:00 a.m. in the morning. Subsequent workup of CAT scan showed free air, and with elevated white count of 11.1, the patient was urgently taken to the operating room. HOSPITAL COURSE: The patient was taken to the operating room from the emergency room for urgent exploratory laparotomy because of the CAT scan and clinical situation of perforated viscus. 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 Postoperative course, the patient was doing very well, was uneventful, and bowel function returned a couple days later and was then started on p.o. diet from clear liquid to slowly advance to regular diet. The patient was put on antibiotic throughout the hospital course. On October 06, the patient was doing very well and able to ambulate with BM x2. White count was normal and the patient was advanced diet. COMMUNITY SERVICE TECHNICIAN was stopped, put on Percocet, and the patient continued to do well and was discharged. The patient is planning to go back to his home time and will follow up with a local doctor. The patient is instructed to have a cheli removed 2 weeks after the surgery or between the second and third week. BECCA / LAKISHA /[id number]
== END 2017-10-07 15:15 | disposition home or self-care (01) | DRG 345 ==
LOC: MW.ED 15:07 → MW.MS 20:06
PROVIDERS: ADMIT Surgery; ATTEND Surgery
PROC: 0WJP0ZZ Inspection of Gastrointestinal Tract, Open Approach (ICD-10-PCS; principal; 2017-10-03)
PROC: 0D980ZZ Drainage of Small Intestine, Open Approach (ICD-10-PCS; 2017-10-03)
DX: K63.1 Perforation of intestine (nontraumatic) (principal); K63.2 Fistula of intestine; I10 Essential (primary) hypertension; K57.30 Diverticulosis of large intestine without perforation or abscess without bleeding
CPT/HCPCS: 00840; 36415; 51701; 74177; 74177-26; 80053; 83690; 85025; 86850; 86900; 86901; 87040; 88305; 96361; 96365; 96367; 96375; 96376; 99283; 99285-25; A9270-GY; C9113; J0330; J1170; J1885; J1956; J2250; J2270; J2274; J2405; J2543; J2704; J3010; J7040; J7050; J7120

== ENCOUNTER 2018-08-26 13:15 | Emergency (ER) | payer OTHER ==
[2018-08-26] MEDS ORDERED: Sodium Chloride 0.9% 2.5 ML Syringe FLUSH PRN (13:36)
[2018-08-26] MEDS ORDERED: Sodium Chloride 0.9% 1,000 ML IV ONE (13:36)
[2018-08-26] MEDS ORDERED: Sodium Chloride 0.9% 10 ML Syringe FLUSH PRN (13:36)
--- NOTE | 2018-08-26 13:37 | EDM.PDOC ---
ED HPI GENERAL MEDICAL PROBLEM - General Chief Complaint: General Stated Complaint: NUMBNESS IN FINGERS Time Seen by Provider: 08/26/18 13:36 Source of Information: Reports: Patient History Limitations: Reports: No Limitations - History of Present Illness INITIAL COMMENTS - FREE TEXT/NARRATIVE: HISTORY AND PHYSICAL: History of present illness: Patient is a 33-year-old male here with complaint of feeling weak. He states that started this morning and he started feeling very anxious that he is having a panic attack since had nausea, vomiting, bilateral hand numbness and tingling , feeling weak in his legs and occasionally feeling short of breath. He denies any chest pain, abdominal pain, fevers, chills, urinary or bowel symptoms. He denies any significant past medical history. Review of systems: As per history of present illness and below otherwise all systems reviewed and negative. Past medical history: As per history of present illness and as reviewed below otherwise noncontributory. Surgical history: As per history of present illness and as reviewed below otherwise noncontributory. Social history: No reported history of drug or alcohol abuse. Family history: As per history of present illness and as reviewed below otherwise noncontributory. Physical exam: General: Patient sitting comfortably in no acute distress and nontoxic appearing. Patient is hyperventilating on exam. HEENT: Atraumatic, normocephalic, pupils reactive, negative for conjunctival pallor or scleral icterus, mucous membranes moist, throat clear, neck supple, nontender, trachea midline. No meningeal signs. Lungs: Clear to auscultation, breath sounds equal bilaterally, chest nontender. Heart: S1S2, regular, negative for clicks, rubs, or overt murmur. Abdomen: Soft, nondistended, nontender. Negative for masses or hepatosplenomegaly. Negative for costovertebral tenderness. No rigidity, rebound , guarding. Pelvis: Stable nontender. Genitourinary: Deferred. Rectal: Deferred. Extremities: Atraumatic, negative for cords or calf pain. Neurovascular unremarkable. Neuro: Awake, alert, oriented. Cranial nerves II through XII unremarkable. Cerebellum unremarkable. Motor and sensory unremarkable throughout. Exam nonfocal. Notes: Diagnostics: CBC, CMP, troponin, EKG, CXR Therapeutics: 1L Normal Saline IV 1g Tylenol PO Prescriptions: Impression: Anxiety Plan: 1. Follow up with primary care provider 2. Return to ED as needed as discussed Definitive disposition and diagnosis as appropriate pending reevaluation and review of above. Legs Pain Score (Numeric/FACES): 8 - Related Data Allergies Allergy/AdvReac Type Severity Reaction Status Date / Time No Known Allergies Allergy Verified 08/26/18 13:24 Home Meds: Home Meds Albuterol Sulfate [Proair Hfa] 8.5 gm IH BID PRN 05/19/18 [History] Past Medical History - Past Health History Medical/Surgical History: Denies Medical/Surgical History HEENT History: Reports: None Cardiovascular History: Reports: Hypertension Other Cardiovascular History: not on medication Respiratory History: Reports: None Gastrointestinal History: Reports: Diverticulosis Genitourinary History: Reports: None Musculoskeletal History: Reports: None Neurological History: Reports: None Psychiatric History: Reports: None Endocrine/Metabolic History: Reports: None Hematologic History: Reports: None Immunologic History: Reports: None Oncologic (Cancer) History: Reports: None Dermatologic History: Reports: None - Infectious Disease History Infectious Disease History: Reports: None - Past Surgical History Cardiovascular Surgical History: Reports: None Respiratory Surgical History: Reports: None GI Surgical History: Reports: Appendectomy Male Surgical History: Reports: None Social & Family History - Family History Family Medical History: Noncontributory - Tobacco Use Smoking Status *Q: Never Smoker - Caffeine Use Caffeine Use: Reports: None - Recreational Drug Use Recreational Drug Use: No ED ROS GENERAL - Review of Systems Review Of Systems: ROS reveals no pertinent complaints other than HPI. ED EXAM, GENERAL - Physical Exam Exam: See Below (see dictation) Course - Vital Signs Last Recorded V/S: Last Vital Signs Temp 99.5 F 08/26/18 15:22 Pulse 99 08/26/18 15:08 Resp 19 08/26/18 15:08 BP 125/73 08/26/18 15:08 Pulse Ox 97 08/26/18 15:08 - Orders/Labs/Meds Orders: Active Orders 24 hr Category Date Time Status EKG Documentation Completion [RC] STAT Care 08/26/18 13:36 Active Oxygen Therapy, ED [RC] ASDIRECTED Care 08/26/18 14:03 Active Chest 1V Frontal [CR] Stat Exams 08/26/18 13:36 Ordered Sodium Chloride 0.9% [Saline Flush] Med 08/26/18 13:36 Active 10 ml FLUSH ASDIRECTED PRN Sodium Chloride 0.9% [Saline Flush] Med 08/26/18 13:36 Active 2.5 ml FLUSH ASDIRECTED PRN Saline Lock Insert [OM.PC] Stat Oth 08/26/18 13:36 Ordered Medication Orders Sodium Chloride (Saline Flush) 10 ml FLUSH ASDIRECTED PRN PRN Reason: Keep Vein Open Last Admin: 08/26/18 13:58 Dose: 10 ml Sodium Chloride (Saline Flush) 2.5 ml FLUSH ASDIRECTED PRN PRN Reason: Keep Vein Open Last Admin: 08/26/18 13:58 Dose: 2.5 ml Labs: Laboratory Tests 08/26/18 08/26/18 08/26/18 Range/Units 13:45 13:45 14:14 WBC 8.52 (4.0-11.0) K/uL RBC 5.13 (4.50-5.90) M/uL Hgb 15.2 (13.0-17.0) g/dL Hct 41.3 (38.0-50.0) % MCV 80.5 (80.0-98.0) fL MCH 29.6 (27.0-32.0) pg MCHC 36.8 (31.0-37.0) g/dL RDW Std Deviation 37.9 (28.0-62.0) fl RDW Coeff of Enrrique 13 (11.0-15.0) % Plt Count 213 (150-400) K/uL MPV 9.70 (7.40-12.00) fL Neut % (Auto) 82.0 H (48.0-80.0) % Lymph % (Auto) 14.7 L (16.0-40.0) % [place] % (Auto) 2.6 (0.0-15.0) % Eos % (Auto) 0.0 (0.0-7.0) % Baso % (Auto) 0.7 (0.0-1.5) % Neut # (Auto) 7.0 H (1.4-5.7) K/uL Lymph # (Auto) 1.3 (0.6-2.4) K/uL [place] # (Auto) 0.2 (0.0-0.8) K/uL Eos # (Auto) 0.0 (0.0-0.7) K/uL Baso # (Auto) 0.1 (0.0-0.1) K/uL Nucleated RBC % 0.0 /100WBC Nucleated RBCs # 0 K/uL Sodium 137 (136-148) mmol/L Potassium 3.4 L (3.5-5.1) mmol/L Chloride 98 (98-107) mmol/L Carbon Dioxide 20.8 L (21.0-32.0) mmol/L BUN 6 L (7.0-18.0) mg/dL Creatinine 0.8 (0.8-1.3) mg/dL Est Cr Clr Drug Dosing 127.06 mL/min Estimated GFR (MDRD) > 60.0 ml/min Glucose 108 H (74-106) mg/dL Calcium 8.8 (8.5-10.1) mg/dL Total Bilirubin 1.6 H (0.2-1.0) mg/dL AST 45 H (15-37) IU/L ALT 45 (14-63) IU/L Alkaline Phosphatase 96 (46-116) U/L Troponin I < 0.050 (0.000-0.056) ng/mL Total Protein 7.8 (6.4-8.2) g/dL Albumin 4.1 (3.4-5.0) g/dL Globulin 3.7 (2.6-4.0) g/dL Albumin/Globulin Ratio 1.1 (0.9-1.6) Urine Color YELLOW Urine Appearance CLEAR Urine pH 7.0 (5.0-8.0) Ur Specific [place] 1.010 (1.001-1.035) Urine Protein NEGATIVE (NEGATIVE) mg/dL Urine Glucose (UA) NEGATIVE (NEGATIVE) mg/dL Urine Ketones TRACE H (NEGATIVE) mg/dL Urine Occult Blood NEGATIVE (NEGATIVE) Urine Nitrite NEGATIVE (NEGATIVE) Urine Bilirubin NEGATIVE (NEGATIVE) Urine Urobilinogen 0.2 (<2.0) EU/dL Ur Leukocyte Esterase NEGATIVE (NEGATIVE) Meds: Medications Generic Name Dose Route Start Last Admin Trade Name Freq PRN Reason Stop Dose Admin Sodium Chloride 10 ml 08/26/18 13:36 08/26/18 13:58 Saline Flush FLUSH 10 ml ASDIRECTED PRN Administration Keep Vein Open Sodium Chloride 2.5 ml 08/26/18 13:36 08/26/18 13:58 Saline Flush FLUSH 2.5 ml ASDIRECTED PRN Administration Keep Vein Open Discontinued Medications Generic Name Dose Route Start Last Admin Trade Name Arielle PRN Reason Stop Dose Admin Acetaminophen 1,000 mg 08/26/18 15:12 Tylenol PO 08/26/18 15:13 NOW ONE Acetaminophen 1,000 mg 08/26/18 15:18 08/26/18 15:22 Tylenol Extra Strength PO 08/26/18 15:19 1,000 mg ONETIME ONE Administration Acetaminophen Confirm 08/26/18 15:20 08/26/18 15:47 Tylenol Extra Strength Administered 08/26/18 15:21 Not Given Dose 1,000 mg .ROUTE .STK-MED ONE Sodium Chloride 1,000 mls @ 999 mls/hr 08/26/18 13:36 08/26/18 13:57 Normal Saline IV 08/26/18 14:36 999 mls/hr STAT ONE Administration Lorazepam 1 mg 08/26/18 14:10 Ativan IVPUSH 08/26/18 14:11 ONETIME ONE Departure - Departure Time of Disposition: 15:53 Disposition: Home, Self-Care 01 Condition: Good Clinical Impression: Anxiety - Discharge Information Referrals: PCP,None [Primary Care Provider] - Forms: ED Department Discharge Additional Instructions: The following information is given to patients seen in the emergency department who are being discharged to home. This information is to outline your options for follow-up care. We provide all patients seen in our emergency department with a follow-up referral. The need for follow-up, as well as the timing and circumstances, are variable depending upon the specifics of your emergency department visit. If you don't have a primary care physician on staff, we will provide you with a referral. We always advise you to contact your personal physician following an emergency department visit to inform them of the circumstance of the visit and for follow-up with them and/or the need for any referrals to a consulting specialist. The emergency department will also refer you to a specialist when appropriate. This referral assures that you have the opportunity for follow-up care with a specialist. All of these measure are taken in an effort to provide you with optimal care, which includes your follow-up. Under all circumstances we always encourage you to contact your private physician who remains a resource for coordinating your care. When calling for follow-up care, please make the office aware that this follow-up is from your recent emergency room visit. If for any reason you are refused follow-up, please contact the [facility] Emergency Department at and asked to speak to the emergency department charge nurse. [facility] [address] [place] [address] [facility] [address] [place] [id number] 1. Follow up with primary care provider 2. Return to ED as needed as discussed - My Orders Last 24 Hours: My Active Orders 08/26/18 13:36 EKG Documentation Completion [RC] STAT Chest 1V Frontal [CR] Stat Sodium Chloride 0.9% [Saline Flush] 10 ml FLUSH ASDIRECTED PRN Sodium Chloride 0.9% [Saline Flush] 2.5 ml FLUSH ASDIRECTED PRN Saline Lock Insert [OM.PC] Stat 08/26/18 14:03 Oxygen Therapy, ED [RC] ASDIRECTED - Assessment/Plan Last 24 Hours: My Active Orders 08/26/18 13:36 EKG Documentation Completion [RC] STAT Chest 1V Frontal [CR] Stat Sodium Chloride 0.9% [Saline Flush] 10 ml FLUSH ASDIRECTED PRN Sodium Chloride 0.9% [Saline Flush] 2.5 ml FLUSH ASDIRECTED PRN Saline Lock Insert [OM.PC] Stat 08/26/18 14:03 Oxygen Therapy, ED [RC] ASDIRECTED
[2018-08-26] MEDS ORDERED: LORazepam 2 MG/ML SDV IVPUSH ONE (14:10)
[2018-08-26 14:19] LABS: CHLORIDE,CL 98 mmol/L (98-107); SODIUM,NA 137 mmol/L (136-148)
[2018-08-26] MEDS ORDERED: Acetaminophen 325 MG Tab PO ONE (15:12)
[2018-08-26] MEDS ORDERED: Acetaminophen 500 MG Tab PO ONE (15:18)
[2018-08-26] MEDS ORDERED: Acetaminophen 500 MG Tab ONE (15:20)
--- NOTE | 2018-08-26 16:18 | CR ---
HISTORY: Chest pain and shortness of breath. FINDINGS: Diminished lung volumes are noted. The lungs are clear and there is no evidence for pleural effusion or pneumothorax. Cardiac silhouette size is within normal limits. IMPRESSION: Diminished lung volumes. No findings for pneumonia. Dictated by Ovidio Alejandre MD @ Aug 26 2018 4:13PM Signed by Dr. Ovidio Alejandre @ Aug 26 2018 4:16PM
[2018-08-26 16:41] VITALS: BP 132/94
== END 2018-08-26 16:36 | disposition home or self-care (01) ==
LOC: MW.ED 13:15
DX: F41.9 Anxiety disorder, unspecified (principal); I10 Essential (primary) hypertension
CPT/HCPCS: 36415; 71045; 80053; 81003; 84484; 85025; 87804; 93005; 96360; 99284; A9270; J7040; 99283

== ENCOUNTER 2018-12-19 07:48 | Observation (INO) | payer OTHER ==
[2018-12-19] MEDS ORDERED: Sodium Chloride 0.9% 2.5 ML Syringe FLUSH PRN (07:55)
[2018-12-19] MEDS ORDERED: Sodium Chloride 0.9% 10 ML Syringe FLUSH PRN (07:55)
[2018-12-19] MEDS ORDERED: LORazepam 2 MG/ML SDV ONE (07:56)
[2018-12-19] MEDS ORDERED: MVI, Adult with Vitamin K 10 ML, Thiamine 100 MG, Folic Acid 1 MG in Sodium Chloride 0.... IV ONE ×4 (07:56)
[2018-12-19] MEDS ORDERED: LORazepam 2 MG/ML SDV IVPUSH ONE ×2 (07:57→08:33)
[2018-12-19] MEDS ORDERED: Sodium Chloride 0.9% 1,000 ML IV ONE (08:07)
--- NOTE | 2018-12-19 08:14 | EDM.PDOC ---
ED HPI GENERAL MEDICAL PROBLEM - General Chief Complaint: Chest Pain Stated Complaint: WEAKNESS/CHEST PAIN Time Seen by Provider: 12/19/18 08:12 - History of Present Illness INITIAL COMMENTS - FREE TEXT/NARRATIVE: 33 y/o male with alcohol abuse drank 1 pint of vodka last night. States he woke up this morning around 2 am with severe chest pain. No radiation to neck or arms. No history of CAD. States he took a taxi to the hospital. Lives in [place]. In the ER, he was tremulous. Tender to palpation on left upper chest area. Ativan 1 mg IV was administered and that seemed to help with tremors. States he has been nauseous with some vomiting. No blood in emesis. Endorsing some diarrhea. No blood. Endorses past history of alcohol withdrawal seizures. chest Pain Score (Numeric/FACES): 5 Right Ankle Pain Score (Numeric/FACES): 6 - Related Data Allergies Allergy/AdvReac Type Severity Reaction Status Date / Time No Known Allergies Allergy Verified 12/19/18 23:30 Home Meds: Home Meds Ibuprofen [Advil] 1 - 2 tab PO Q8H PRN 12/19/18 [History] Past Medical History - Past Health History Medical/Surgical History: Denies Medical/Surgical History HEENT History: Reports: None Cardiovascular History: Reports: Hypertension Other Cardiovascular History: not on medication Respiratory History: Reports: Asthma Gastrointestinal History: Reports: Diverticulosis Genitourinary History: Reports: None Musculoskeletal History: Reports: None Neurological History: Reports: None Psychiatric History: Reports: Anxiety, Other (See Below) Other Psychiatric History: ETOH abuse Endocrine/Metabolic History: Reports: None Hematologic History: Reports: None Immunologic History: Reports: None Oncologic (Cancer) History: Reports: None Dermatologic History: Reports: None - Infectious Disease History Infectious Disease History: Reports: None - Past Surgical History Cardiovascular Surgical History: Reports: None Respiratory Surgical History: Reports: None GI Surgical History: Reports: Appendectomy Male Surgical History: Reports: None Social & Family History - Family History Family Medical History: Noncontributory - Tobacco Use Smoking Status *Q: Never Smoker - Caffeine Use Caffeine Use: Reports: None - Alcohol Use Days Per Week of Alcohol Use: 1 Number of Drinks Per Day: 3 Total Drinks Per Week: 3 - Recreational Drug Use Recreational Drug Use: No ED ROS GENERAL - Review of Systems Review Of Systems: ROS reveals no pertinent complaints other than HPI. ED EXAM, GI/ABD - Physical Exam Exam: See Below General Appearance: Alert, Anxious, Mild Distress, Other (tremulous) Throat/Mouth: Other (dry oral mucosa) Head: Atraumatic Respiratory/Chest: No Respiratory Distress, Lungs Clear, Normal Breath Sounds Cardiovascular: No Murmur, Tachycardia GI/Abdominal Exam: Other (no distention. tender in epigastric area. No rebound.) Extremities: Normal Inspection, No Pedal Edema Neurological: Alert, Oriented Skin Exam: Warm, Diaphoretic Course - Vital Signs Text/Narrative:: admitted to observation. Dr. Kelly accepting provider. Last Recorded V/S: Last Vital Signs Temp 36.1 C 12/20/18 04:00 Pulse 86 12/20/18 04:00 Resp 18 12/20/18 04:00 BP 132/85 12/20/18 04:00 Pulse Ox 97 12/20/18 04:00 - Orders/Labs/Meds Orders: Active Orders 24 hr Category Date Time Status Admission Status [Patient Status] [ADT] Stat ADT 12/19/18 09:45 Active EKG 12 Lead [EKG Documentation Completion] [RC] STAT Care 12/19/18 08:03 Active Sodium Chloride 0.9% [Saline Flush] Med 12/19/18 07:55 Active 10 ml FLUSH ASDIRECTED PRN Sodium Chloride 0.9% [Saline Flush] Med 12/19/18 07:55 Active 2.5 ml FLUSH ASDIRECTED PRN Saline Lock Insert [OM.PC] Stat Oth 12/19/18 07:55 Ordered Medication Orders Acetaminophen (Tylenol) 650 mg PO Q6H PRN PRN Reason: Pain Last Admin: 12/19/18 20:50 Dose: 650 mg Folic Acid (Folic Acid) 1 mg PO BEDTIME VERNELL Last Admin: 12/19/18 20:21 Dose: 1 mg Sodium Chloride (Normal Saline) 1,000 mls @ 125 mls/hr IV ASDIRECTED VERNELL Last Admin: 12/20/18 06:57 Dose: 125 mls/hr Infusion: 12/20/18 06:42 Dose: 125 mls/hr Admin: 12/19/18 22:42 Dose: 125 mls/hr Infusion: 12/19/18 20:32 Dose: 125 mls/hr Admin: 12/19/18 12:32 Dose: 125 mls/hr Sodium Chloride (Normal Saline) 1,000 mls @ 125 mls/hr IV ASDIRECTED VERNELL Pantoprazole Sodium 40 mg/ (Sodium Chloride) 10 mls @ 300 mls/hr IVPUSH Q24H VERNELL Last Admin: 12/19/18 13:29 Dose: 300 mls/hr Ibuprofen (Motrin) 200 mg PO Q4H PRN PRN Reason: Pain Lorazepam (Ativan) 0 mg IVPUSH Q4H PRN; Protocol PRN Reason: agitation Last Admin: 12/19/18 12:31 Dose: 1 mg Sodium Chloride (Saline Flush) 10 ml FLUSH ASDIRECTED PRN PRN Reason: Keep Vein Open Sodium Chloride (Saline Flush) 2.5 ml FLUSH ASDIRECTED PRN PRN Reason: Keep Vein Open Thiamine HCl (Vitamin B-1) 100 mg PO BEDTIME [facility] Last Admin: 12/19/18 20:21 Dose: 100 mg Labs: Laboratory Tests 12/19/18 12/19/18 12/19/18 Range/Units 08:00 08:00 08:00 WBC 6.05 (4.0-11.0) K/uL RBC 5.62 (4.50-5.90) M/uL Hgb 16.8 (13.0-17.0) g/dL Hct 47.4 (38.0-50.0) % MCV 84.3 (80.0-98.0) fL MCH 29.9 (27.0-32.0) pg MCHC 35.4 (31.0-37.0) g/dL RDW Std Deviation 39.4 (28.0-62.0) fl RDW Coeff of Enrrique 13 (11.0-15.0) % Plt Count 288 (150-400) K/uL MPV 9.60 (7.40-12.00) fL Neut % (Auto) 59.2 (48.0-80.0) % Lymph % (Auto) 34.9 (16.0-40.0) % [place] % (Auto) 4.0 (0.0-15.0) % Eos % (Auto) 0.2 (0.0-7.0) % Baso % (Auto) 1.7 H (0.0-1.5) % Neut # (Auto) 3.6 (1.4-5.7) K/uL Lymph # (Auto) 2.1 (0.6-2.4) K/uL [place] # (Auto) 0.2 (0.0-0.8) K/uL Eos # (Auto) 0.0 (0.0-0.7) K/uL Baso # (Auto) 0.1 (0.0-0.1) K/uL Nucleated RBC % 0.0 /100WBC Nucleated RBCs # 0 K/uL D-Dimer, Quantitative (0.0-0.50) mg/L FEU Sodium 138 (136-148) mmol/L Potassium 3.3 L (3.5-5.1) mmol/L Chloride 100 (98-107) mmol/L Carbon Dioxide 24.2 (21.0-32.0) mmol/L BUN 8 (7.0-18.0) mg/dL Creatinine 0.7 L (0.8-1.3) mg/dL Est Cr Clr Drug Dosing 135.45 mL/min Estimated GFR (MDRD) > 60.0 ml/min Glucose 107 H (74-106) mg/dL Calcium 8.6 (8.5-10.1) mg/dL Phosphorus 3.3 (2.6-4.7) mg/dL Magnesium 1.8 (1.8-2.4) mg/dL Total Bilirubin 1.4 H (0.2-1.0) mg/dL AST 59 H (15-37) IU/L ALT 61 (14-63) IU/L Alkaline Phosphatase 95 (46-116) U/L Troponin I < 0.050 (0.000-0.056) ng/mL Total Protein 8.5 H (6.4-8.2) g/dL Albumin 4.3 (3.4-5.0) g/dL Globulin 4.2 H (2.6-4.0) g/dL Albumin/Globulin Ratio 1.0 (0.9-1.6) Lipase 234 (73-393) U/L Urine Opiates Screen (NEGATIVE) Ur Oxycodone Screen (NEGATIVE) Urine Methadone Screen (NEGATIVE) Ur Barbiturates Screen (NEGATIVE) Ur Phencyclidine Scrn (NEGATIVE) Ur Amphetamine Screen (NEGATIVE) U Methamphetamines Scrn (NEGATIVE) U Benzodiazepines Scrn (NEGATIVE) U Cocaine Metab Screen (NEGATIVE) U Marijuana (THC) Screen (NEGATIVE) Ethyl Alcohol 117 mg/dL 12/19/18 12/19/18 Range/Units 08:00 09:07 WBC (4.0-11.0) K/uL RBC (4.50-5.90) M/uL Hgb (13.0-17.0) g/dL Hct (38.0-50.0) % MCV (80.0-98.0) fL MCH (27.0-32.0) pg MCHC (31.0-37.0) g/dL RDW Std Deviation (28.0-62.0) fl RDW Coeff of Enrrique (11.0-15.0) % Plt Count (150-400) K/uL MPV (7.40-12.00) fL Neut % (Auto) (48.0-80.0) % Lymph % (Auto) (16.0-40.0) % [place] % (Auto) (0.0-15.0) % Eos % (Auto) (0.0-7.0) % Baso % (Auto) (0.0-1.5) % Neut # (Auto) (1.4-5.7) K/uL Lymph # (Auto) (0.6-2.4) K/uL [place] # (Auto) (0.0-0.8) K/uL Eos # (Auto) (0.0-0.7) K/uL Baso # (Auto) (0.0-0.1) K/uL Nucleated RBC % /100WBC Nucleated RBCs # K/uL D-Dimer, Quantitative 1.91 H (0.0-0.50) mg/L FEU Sodium (136-148) mmol/L Potassium (3.5-5.1) mmol/L Chloride (98-107) mmol/L Carbon Dioxide (21.0-32.0) mmol/L BUN (7.0-18.0) mg/dL Creatinine (0.8-1.3) mg/dL Est Cr Clr Drug Dosing mL/min Estimated GFR (MDRD) ml/min Glucose (74-106) mg/dL Calcium (8.5-10.1) mg/dL Phosphorus (2.6-4.7) mg/dL Magnesium (1.8-2.4) mg/dL Total Bilirubin (0.2-1.0) mg/dL AST (15-37) IU/L ALT (14-63) IU/L Alkaline Phosphatase (46-116) U/L Troponin I (0.000-0.056) ng/mL Total Protein (6.4-8.2) g/dL Albumin (3.4-5.0) g/dL Globulin (2.6-4.0) g/dL Albumin/Globulin Ratio (0.9-1.6) Lipase (73-393) U/L Urine Opiates Screen NEGATIVE (NEGATIVE) Ur Oxycodone Screen NEGATIVE (NEGATIVE) Urine Methadone Screen NEGATIVE (NEGATIVE) Ur Barbiturates Screen NEGATIVE (NEGATIVE) Ur Phencyclidine Scrn NEGATIVE (NEGATIVE) Ur Amphetamine Screen NEGATIVE (NEGATIVE) U Methamphetamines Scrn NEGATIVE (NEGATIVE) U Benzodiazepines Scrn NEGATIVE (NEGATIVE) U Cocaine Metab Screen NEGATIVE (NEGATIVE) U Marijuana (THC) Screen NEGATIVE (NEGATIVE) Ethyl Alcohol mg/dL Meds: Medications Generic Name Dose Route Start Last Admin Trade Name Freq PRN Reason Stop Dose Admin Acetaminophen 650 mg 12/19/18 12:06 12/19/18 20:50 Tylenol PO 650 mg Q6H PRN Administration Pain Folic Acid 1 mg 12/19/18 21:00 12/19/18 20:21 Folic Acid PO 1 mg BEDTIME VERNELL Administration Sodium Chloride 1,000 mls @ 125 mls/hr 12/19/18 11:45 12/20/18 06:57 Normal Saline IV 125 mls/hr ASDIRECTED VERNELL Administration Sodium Chloride 1,000 mls @ 125 mls/hr 12/19/18 12:15 Normal Saline IV ASDIRECTED VERNELL Pantoprazole Sodium 40 mg/ 10 mls @ 300 mls/hr 12/19/18 13:00 12/19/18 13:29 Sodium Chloride IVPUSH 300 mls/hr Q24H VERNELL Administration Ibuprofen 200 mg 12/19/18 12:06 Motrin PO Q4H PRN Pain Lorazepam 0 mg 12/19/18 11:40 12/19/18 12:31 Ativan IVPUSH 1 mg Q4H PRN Administration agitation Protocol Sodium Chloride 10 ml 07/16/19 07:55 Saline Flush FLUSH ASDIRECTED PRN Keep Vein Open Sodium Chloride 2.5 ml 12/19/18 07:55 Saline Flush FLUSH ASDIRECTED PRN Keep Vein Open Thiamine HCl 100 mg 12/19/18 21:00 12/19/18 20:21 Vitamin B-1 PO 100 mg BEDTIME VERNELL Administration Discontinued Medications Generic Name Dose Route Start Last Admin Trade Name Freq PRN Reason Stop Dose Admin Al Hydroxide/Mg Hydroxide 15 0 ml 12/19/18 12:07 12/19/18 13:30 ml/ Lidocaine HCl 5 ml PO 12/19/18 12:08 20 each ONETIME ONE Administration Multivitamins/Minerals 10 ml/ 1,011.2 mls @ 999 mls/hr 12/19/18 07:56 08:11 Thiamine HCl 100 mg/ Folic IV 12/19/18 08:56 999 mls/hr Acid 1 mg/ Sodium Chloride ONETIME ONE Administration Sodium Chloride 1,000 mls @ 999 mls/hr 12/19/18 08:07 12/19/18 08:11 Normal Saline IV 12/19/18 09:07 999 mls/hr .Bolus ONE Administration Iopamidol 50 ml 12/19/18 18:06 12/19/18 18:07 Isovue Multipack-370 (76%) IVPUSH 12/19/18 18:07 50 ml ONETIME ONE Administration Lorazepam 1 mg 12/19/18 07:57 12/19/18 08:00 Ativan IVPUSH 12/19/18 07:58 1 mg ONETIME ONE Administration Lorazepam Confirm 12/19/18 07:56 12/19/18 08:03 Ativan Administered 12/19/18 07:57 Not Given Dose 2 mg .ROUTE .STK-MED ONE Lorazepam 1 mg 12/19/18 08:33 12/19/18 08:39 Ativan IVPUSH 12/19/18 08:34 1 mg ONETIME ONE Administration Potassium Chloride 40 meq 12/19/18 11:44 12/19/18 12:30 Klor-Con M20 PO 12/19/18 11:45 40 meq ONETIME ONE Administration Departure - Departure Time of Disposition: 10:00 Disposition: Refer to Observation Clinical Impression: Alcohol intoxication - Discharge Information - My Orders Last 24 Hours: My Active Orders 12/19/18 07:55 Sodium Chloride 0.9% [Saline Flush] 10 ml FLUSH ASDIRECTED PRN Sodium Chloride 0.9% [Saline Flush] 2.5 ml FLUSH ASDIRECTED PRN Saline Lock Insert [OM.PC] Stat 12/19/18 08:03 EKG 12 Lead [EKG Documentation Completion] [RC] STAT 12/19/18 09:45 Admission Status [Patient Status] [ADT] Stat - Assessment/Plan Last 24 Hours: My Active Orders 12/19/18 07:55 Sodium Chloride 0.9% [Saline Flush] 10 ml FLUSH ASDIRECTED PRN Sodium Chloride 0.9% [Saline Flush] 2.5 ml FLUSH ASDIRECTED PRN Saline Lock Insert [OM.PC] Stat 12/19/18 08:03 EKG 12 Lead [EKG Documentation Completion] [RC] STAT 12/19/18 09:45 Admission Status [Patient Status] [ADT] Stat
--- NOTE | 2018-12-19 08:53 | CR ---
EXAMINATION: Portable chest radiograph. HISTORY: Shortness of breath. FINDINGS: The trachea is midline. The cardiomediastinal silhouette is within normal limits. No pulmonary infiltrates, effusions or pneumothorax. Osseous structures appear unremarkable. IMPRESSION: No acute cardiopulmonary process.
--- NOTE | 2018-12-19 08:57 | CR ---
EXAMINATION: Right ankle HISTORY: Pain COMPARISON: None TECHNIQUE: 3 views FINDINGS/IMPRESSION: There is no acute osseous abnormality, dislocation, or fracture. Bone mineralization and joint spaces are preserved. Ankle mortise and talar dome are intact.
[2018-12-19 09:17] LABS: CHLORIDE,CL 100 mmol/L (98-107); SODIUM,NA 138 mmol/L (136-148)
[2018-12-19] MEDS ORDERED: Potassium Chloride 20 MEQ Tab.ER PO ONE (11:44)
[2018-12-19] MEDS ORDERED: Ibuprofen 200 MG Tab PO PRN (12:06)
[2018-12-19] MEDS ORDERED: Alum Hydrox/Mag Hydrox/Simeth 15 ML, Lidocaine 2% 5 ML PO ONE ×2 (12:07)
[2018-12-19] MEDS ORDERED: Sodium Chloride 0.9% 1,000 ML IV SCH (12:15)
--- NOTE | 2018-12-19 12:19 | PCM.HP ---
H&P History of Present Illness - General Date of Service: 12/19/18 Admit Problem/Dx: Admission Diagnosis/Problem Admission Diagnosis/Problem Alcohol intoxication - History of Present Illness Initial Comments - Free Text/Narative: 33 yo male who presents to the ED with complaints of chest and right foot pain. Patient reports he stepped on a rock and twisted his ankle on a flight of stairs two days ago. He stated when he feel he hit his chest. Since then his chest wall has hurt whenever he takes a deep breath. He also has right ankle pain that hurts with movement. He reports drinking a pint of alcohol last night. He states the last time he drank was three months ago. In the ED he was noted to be tremoulos and tachycardic. He was given 2mg of ativan. ER provider requested admission for ETOH withdrawal. chest Pain Score (Numeric/FACES): 5 - Related Data Allergies/Adverse Reactions: Allergies Allergy/AdvReac Type Severity Reaction Status Date / Time No Known Allergies Allergy Verified 12/20/18 09:35 Home Medications: Home Meds Ibuprofen [Advil] 1 - 2 tab PO Q8H PRN 12/19/18 [History] Past Medical History - Past Health History Medical/Surgical History: Denies Medical/Surgical History HEENT History: Reports: None Cardiovascular History: Reports: Hypertension Other Cardiovascular History: not on medication Respiratory History: Reports: Asthma Gastrointestinal History: Reports: Diverticulosis Genitourinary History: Reports: None Musculoskeletal History: Reports: None Neurological History: Reports: None Psychiatric History: Reports: Anxiety, Other (See Below) Other Psychiatric History: ETOH abuse Endocrine/Metabolic History: Reports: None Hematologic History: Reports: None Immunologic History: Reports: None Oncologic (Cancer) History: Reports: None Dermatologic History: Reports: None - Infectious Disease History Infectious Disease History: Reports: None - Past Surgical History Cardiovascular Surgical History: Reports: None Respiratory Surgical History: Reports: None GI Surgical History: Reports: Appendectomy Male Surgical History: Reports: None Social & Family History - Family History Family Medical History: Noncontributory - Tobacco Use Smoking Status *Q: Never Smoker Second Hand Smoke Exposure: No - Caffeine Use Caffeine Use: Reports: None - Alcohol Use Days Per Week of Alcohol Use: 1 Number of Drinks Per Day: 3 Total Drinks Per Week: 3 - Recreational Drug Use Recreational Drug Use: No H&P Review of Systems - Review of Systems: Review Of Systems: ROS reveals no pertinent complaints other than HPI. Exam - Exam Exam: See Below - Vital Signs Vital Signs: Last Vital Signs Temp 37.3 C 12/19/18 12:00 Pulse 110 H 12/19/18 12:00 Resp 20 12/19/18 12:00 BP 131/83 12/19/18 12:00 Pulse Ox 97 12/19/18 12:00 Weight: 102.013 kg - Exam General: Alert, Oriented HEENT: Mucosa Moist & [place] Neck: Supple, Trachea Midline Lungs: Clear to Auscultation, Normal Respiratory Effort Cardiovascular: Regular Rate, Regular Rhythm GI/Abdominal Exam: Soft, Non-Tender Extremities: Normal Range of Motion, Non-Tender, No Pedal Edema Skin: Warm, Dry, Intact Neurological: Cranial Nerves Intact. No: Focal Deficit - Patient Data Lab Results Last 24 hrs: Laboratory Results - last 24 hr 12/19/18 12/19/18 12/19/18 Range/Units 08:00 08:00 09:07 WBC 6.05 (4.0-11.0) K/uL RBC 5.62 (4.50-5.90) M/uL Hgb 16.8 (13.0-17.0) g/dL Hct 47.4 (38.0-50.0) % MCV 84.3 (80.0-98.0) fL MCH 29.9 (27.0-32.0) pg MCHC 35.4 (31.0-37.0) g/dL RDW Std Deviation 39.4 (28.0-62.0) fl RDW Coeff of Enrrique 13 (11.0-15.0) % Plt Count 288 (150-400) K/uL MPV 9.60 (7.40-12.00) fL Neut % (Auto) 59.2 (48.0-80.0) % Lymph % (Auto) 34.9 (16.0-40.0) % [place] % (Auto) 4.0 (0.0-15.0) % Eos % (Auto) 0.2 (0.0-7.0) % Baso % (Auto) 1.7 H (0.0-1.5) % Neut # (Auto) 3.6 (1.4-5.7) K/uL Lymph # (Auto) 2.1 (0.6-2.4) K/uL [place] # (Auto) 0.2 (0.0-0.8) K/uL Eos # (Auto) 0.0 (0.0-0.7) K/uL Baso # (Auto) 0.1 (0.0-0.1) K/uL Nucleated RBC % 0.0 /100WBC Nucleated RBCs # 0 K/uL Sodium 138 (136-148) mmol/L Potassium 3.3 L (3.5-5.1) mmol/L Chloride 100 (98-107) mmol/L Carbon Dioxide 24.2 (21.0-32.0) mmol/L BUN 8 (7.0-18.0) mg/dL Creatinine 0.7 L (0.8-1.3) mg/dL Est Cr Clr Drug Dosing 135.45 mL/min Estimated GFR (MDRD) > 60.0 ml/min Glucose 107 H (74-106) mg/dL Calcium 8.6 (8.5-10.1) mg/dL Total Bilirubin 1.4 H (0.2-1.0) mg/dL AST 59 H (15-37) IU/L ALT 61 (14-63) IU/L Alkaline Phosphatase 95 (46-116) U/L Troponin I < 0.050 (0.000-0.056) ng/mL Total Protein 8.5 H (6.4-8.2) g/dL Albumin 4.3 (3.4-5.0) g/dL Globulin 4.2 H (2.6-4.0) g/dL Albumin/Globulin Ratio 1.0 (0.9-1.6) Lipase 234 (73-393) U/L Urine Opiates Screen NEGATIVE (NEGATIVE) Ur Oxycodone Screen NEGATIVE (NEGATIVE) Urine Methadone Screen NEGATIVE (NEGATIVE) Ur Barbiturates Screen NEGATIVE (NEGATIVE) Ur Phencyclidine Scrn NEGATIVE (NEGATIVE) Ur Amphetamine Screen NEGATIVE (NEGATIVE) U Methamphetamines Scrn NEGATIVE (NEGATIVE) U Benzodiazepines Scrn NEGATIVE (NEGATIVE) U Cocaine Metab Screen NEGATIVE (NEGATIVE) U Marijuana (THC) Screen NEGATIVE (NEGATIVE) Ethyl Alcohol 117 mg/dL Result Diagrams: 12/19/18 08:00 12/19/18 08:00 Problem List Initiated/Reviewed/Updated: Yes Orders Last 24hrs: Active Orders 24 hr Category Date Time Status Admission Status [Patient Status] [ADT] Stat ADT 12/19/18 09:45 Active EKG 12 Lead [EKG Documentation Completion] [RC] STAT Care 12/19/18 08:03 Active Regular Diet [DIET] Diet 12/19/18 Dinner Active Abdomen Ltd [US] Routine Exams 12/19/18 12:02 Ordered Head wo Cont [CT] Routine Exams 12/19/18 12:05 Ordered D-DIMER QUANTITATIVE [COAG] Routine Lab 12/19/18 12:02 Ordered MAGNESIUM [CHEM] Routine Lab 12/19/18 08:00 Received PHOSPHORUS [CHEM] Routine Lab 12/19/18 08:00 Received Acetaminophen [Tylenol] Med 12/19/18 12:06 Ordered 650 mg PO Q6H PRN Folic Acid Med 12/19/18 21:00 Active 1 mg PO BEDTIME GI Cocktail 20 ML PO x 1 Med 12/19/18 12:07 Ordered Alum Hydrox/Mag Hydrox/Simeth [Mag-Al Plus] 15 ml Lidocaine 2% [Xylocaine 2% Viscous] 5 ml PO ONETIME Ibuprofen [Motrin] Med 12/19/18 12:06 Ordered 200 mg PO Q4H PRN LORazepam [Ativan] Med 12/19/18 11:40 Active See Protocol IVPUSH Q4H PRN Pantoprazole [ProTONIX IV] 40 mg Med 12/19/18 12:15 Ordered Sodium Chloride 0.9% [Normal Saline] 100 ml IVPUSH Q24H Sodium Chloride 0.9% @ 125 MLS/HR (1,000ml) Med 12/19/18 12:15 Ordered Sodium Chloride 0.9% [Normal Saline] 1,000 ml IV ASDIRECTED Sodium Chloride 0.9% [Normal Saline] 1,000 ml Med 12/19/18 11:45 Active IV ASDIRECTED Sodium Chloride 0.9% [Saline Flush] Med 12/19/18 07:55 Active 10 ml FLUSH ASDIRECTED PRN Sodium Chloride 0.9% [Saline Flush] Med 12/19/18 07:55 Active 2.5 ml FLUSH ASDIRECTED PRN Thiamine [Vitamin B-1] Med 12/19/18 21:00 Active 100 mg PO BEDTIME Saline Lock Insert [OM.PC] Stat Oth 12/19/18 07:55 Ordered Medication Orders Acetaminophen (Tylenol) 650 mg PO Q6H PRN PRN Reason: Pain Al Hydroxide/Mg Hydroxide 15 (ml/ Lidocaine HCl 5 ml) 0 ml PO ONETIME ONE Stop: 12/19/18 12:08 Folic Acid (Folic Acid) 1 mg PO BEDTIME VERNELL Sodium Chloride (Normal Saline) 1,000 mls @ 125 mls/hr IV ASDIRECTED VERNELL Sodium Chloride (Normal Saline) 1,000 mls @ 125 mls/hr IV ASDIRECTED VERNELL Pantoprazole Sodium 40 mg/ (Sodium Chloride) 100 mls @ 10 mls/hr IVPUSH Q24H VERNELL Ibuprofen (Motrin) 200 mg PO Q4H PRN PRN Reason: Pain Lorazepam (Ativan) 0 mg IVPUSH Q4H PRN; Protocol PRN Reason: agitation Sodium Chloride (Saline Flush) 10 ml FLUSH ASDIRECTED PRN PRN Reason: Keep Vein Open Sodium Chloride (Saline Flush) 2.5 ml FLUSH ASDIRECTED PRN PRN Reason: Keep Vein Open Thiamine HCl (Vitamin B-1) 100 mg PO BEDTIME [facility] Assessment/Plan Comment:: 33 yo male who feel two days ago suffering an ankle sprain and chest wall pain. He is also dehydrated from binge drinking last night. We will hydrate with IV fluids and monitor overnight.
[2018-12-19] MEDS: LORazepam 2 MG/ML SDV IVPUSH PRN (12:31)
[2018-12-19] MEDS: Sodium Chloride 0.9% 1,000 ML IV SCH ×2 (12:32→22:42)
[2018-12-19] MEDS: Pantoprazole 40 MG in Sodium Chloride 0.9% 10 ML IVPUSH SCH (13:29)
--- NOTE | 2018-12-19 15:32 | CT ---
EXAMINATION: Non contrast CT head. Coronal and sagittal reformats. HISTORY: Fall FINDINGS: No evidence of intra or extra axial hemorrhage, mass, midline shift, hydrocephalus or edema. No hypoattenuation changes in the major vascular territories to suggest acute infarct. No abnormal intracranial calcifications are detected. No evidence of substantial vascular calcifications. Paranasal sinuses and mastoid air cells are well aerated without substantial findings. Pituitary fossa appears unremarkable. Orbits and globes are symmetric. Calvarium is intact. No evidence of skull fracture. IMPRESSION: No acute intracranial findings.
--- NOTE | 2018-12-19 15:36 | CT ---
EXAMINATION: CTA chest HISTORY: Pain COMPARISON: Radiographs dated 12/19/2018 TECHNIQUE: Axial CT imaging obtained through the chest following administration of 50 mL of Isovue-370 in the right antecubital fossa. Coronal and sagittal reconstructions obtained. FINDINGS: The lungs are clear without focal consolidation. No pleural effusion or pneumothorax. A few bulla are noted along the left upper lobe medial pleura. The heart is normal in size without a pericardial effusion. Thoracic aorta is normal in caliber. Main pulmonary arteries appear patent. Mildly delayed bolus timing scirrhous evaluation of subsegmental pulmonary arteries. Visualized images of the upper abdomen appear normal. No suspicious osseous abnormalities identified. IMPRESSION: 1. No acute cardiopulmonary findings. 2. Main and central pulmonary arteries appear patent. 3. Several medial left upper lobe bulla.
[2018-12-19] MEDS ORDERED: Iopamidol 755 MG/ML 500 ML Multipack Bottle IVPUSH ONE (18:06)
[2018-12-19] MEDS: Folic Acid 1 MG Tab PO SCH (20:21)
[2018-12-19] MEDS: Thiamine 100 MG Tab PO SCH (20:21)
[2018-12-19] MEDS: Acetaminophen 325 MG Tab PO PRN (20:50)
--- NOTE | 2018-12-19 23:46 | US ---
INDICATION: Abdominal pain TECHNIQUE: Ultrasound abdomen limited. Sonographic images of the right upper quadrant were obtained using arellano-scale and color Doppler images. COMPARISON: CT abdomen October 03, 2017 FINDINGS: Liver: Normal in size. Increased echotexture throughout the liver. No masses. No intrahepatic biliary dilatation. Gallbladder: No stones or sludge. Normal wall thickness. No pericholecystic fluid. Sonographic Reyna`s sign is negative. Common bile duct: 3.4 mm. Pancreas: Not visualized due to overlying bowel gas. Right kidney: 10.7 x 5.0 x 4.8 cm. Normal echotexture and cortex. No masses, stones, or hydronephrosis. Aorta: Not visualized due to overlying bowel gas. IMPRESSION: The pancreas and aorta were not seen due to overlying bowel gas. No cholelithiasis. Hepatic steatosis. Dictated by Sapna Decker MD @ Dec 19 2018 11:44PM Signed by Dr. Sapna Decker @ Dec 19 2018 11:44PM
[2018-12-20] MEDS: Sodium Chloride 0.9% 1,000 ML IV SCH (06:57)
[2018-12-20] MEDS: Acetaminophen 325 MG Tab PO PRN (07:54)
[2018-12-20] MEDS: LORazepam 2 MG/ML SDV IVPUSH PRN ×2 (10:20→21:48)
--- NOTE | 2018-12-20 11:36 | PCM.PN ---
- General Info Date of Service: 12/20/18 - Review of Systems Systems Review Comment:: reports pain in ankle, is walking with walker, feels dizzy. - Patient Data Vitals - Most Recent: Last Vital Signs Temp 36.2 C 12/20/18 07:29 Pulse 93 12/20/18 07:29 Resp 17 12/20/18 07:29 BP 137/99 H 12/20/18 07:29 Pulse Ox 96 12/20/18 07:29 Weight - Most Recent: 102.013 kg I&O - Last 24 Hours: Intake & Output 12/19/18 12/20/18 12/20/18 22:59 06:59 14:59 Intake Total 450 2546 Output Total 800 1650 Balance -350 896 Lab Results Last 24 Hours: Laboratory Results - last 24 hr 12/19/18 12/19/18 12/19/18 Range/Units 08:00 08:00 14:03 D-Dimer, Quantitative 1.91 H (0.0-0.50) mg/L FEU Phosphorus 3.3 (2.6-4.7) mg/dL Magnesium 1.8 (1.8-2.4) mg/dL Troponin I < 0.050 (0.000-0.056) ng/mL 12/19/18 Range/Units 19:55 D-Dimer, Quantitative (0.0-0.50) mg/L FEU Phosphorus (2.6-4.7) mg/dL Magnesium (1.8-2.4) mg/dL Troponin I < 0.050 (0.000-0.056) ng/mL Med Orders - Current: Current Medications Acetaminophen (Tylenol) 650 mg PO Q6H PRN PRN Reason: Pain Last Admin: 12/20/18 07:54 Dose: 650 mg Folic Acid (Folic Acid) 1 mg PO BEDTIME [facility] Last Admin: 12/19/18 20:21 Dose: 1 mg Sodium Chloride (Normal Saline) 1,000 mls @ 125 mls/hr IV ASDIRECTED VERNELL Pantoprazole Sodium 40 mg/ (Sodium Chloride) 10 mls @ 300 mls/hr IVPUSH Q24H [facility] Last Admin: 12/19/18 13:29 Dose: 300 mls/hr Ibuprofen (Motrin) 200 mg PO Q4H PRN PRN Reason: Pain Lorazepam (Ativan) 0 mg IVPUSH Q4H PRN; Protocol PRN Reason: agitation Last Admin: 12/20/18 10:20 Dose: 1 mg Sodium Chloride (Saline Flush) 10 ml FLUSH ASDIRECTED PRN PRN Reason: Keep Vein Open Sodium Chloride (Saline Flush) 2.5 ml FLUSH ASDIRECTED PRN PRN Reason: Keep Vein Open Thiamine HCl (Vitamin B-1) 100 mg PO BEDTIME [facility] Last Admin: 12/19/18 20:21 Dose: 100 mg Discontinued Medications Al Hydroxide/Mg Hydroxide 15 (ml/ Lidocaine HCl 5 ml) 0 ml PO ONETIME ONE Stop: 12/19/18 12:08 Last Admin: 12/19/18 13:30 Dose: 20 each Multivitamins/Minerals 10 ml/Thiamine HCl 100 mg/ Folic Acid 1 mg/ Sodium Chloride 1,011.2 mls @ 999 mls/hr IV ONETIME ONE Stop: 12/19/18 08:56 Last Admin: 12/19/18 08:11 Dose: 999 mls/hr Sodium Chloride (Normal Saline) 1,000 mls @ 999 mls/hr IV .Bolus ONE Stop: 12/19/18 09:07 Last Admin: 12/19/18 08:11 Dose: 999 mls/hr Sodium Chloride (Normal Saline) 1,000 mls @ 125 mls/hr IV ASDIRECTED [facility] Last Admin: 12/20/18 06:57 Dose: 125 mls/hr Iopamidol (Isovue Multipack-370 (76%)) 50 ml IVPUSH ONETIME ONE Stop: 12/19/18 18:07 Last Admin: 12/19/18 18:07 Dose: 50 ml Lorazepam (Ativan) 1 mg IVPUSH ONETIME ONE Stop: 12/19/18 07:58 Last Admin: 12/19/18 08:00 Dose: 1 mg Lorazepam (Ativan) Confirm Administered Dose 2 mg .ROUTE .STK-MED ONE Stop: 12/19/18 07:57 Last Admin: 12/19/18 08:03 Dose: Not Given Lorazepam (Ativan) 1 mg IVPUSH ONETIME ONE Stop: 12/19/18 08:34 Last Admin: 12/19/18 08:39 Dose: 1 mg Potassium Chloride (Klor-Con M20) 40 meq PO ONETIME ONE Stop: 12/19/18 11:45 Last Admin: 12/19/18 12:30 Dose: 40 meq - Exam General: Alert, Oriented Neck: Supple Lungs: Clear to Auscultation, Normal Respiratory Effort Cardiovascular: Regular Rate, Regular Rhythm GI/Abdominal Exam: Soft, Non-Tender Extremities: No Pedal Edema Skin: Warm, Dry, Intact Neurological: No New Focal Deficit, Normal Tone, Strength Equal Bilateral, Reflexes Equal Bilateral, Sensation Intact, Other (anatelgic gate) - Problem List Review Problem List Initiated/Reviewed/Updated: Yes - My Orders Last 24 Hours: My Active Orders 12/19/18 11:40 LORazepam [Ativan] See Protocol IVPUSH Q4H PRN 12/19/18 12:06 Acetaminophen [Tylenol] 650 mg PO Q6H PRN Ibuprofen [Motrin] 200 mg PO Q4H PRN 12/19/18 12:15 Sodium Chloride 0.9% [Normal Saline] 1,000 ml IV ASDIRECTED 12/19/18 12:20 PT Evaluation and Treatment [CONS] Routine 12/19/18 12:21 Cardiac Monitoring [RC] . DIRECTED 12/19/18 13:00 Pantoprazole [ProTONIX IV] 40 mg Sodium Chloride 0.9% [Normal Saline] 10 ml IVPUSH Q24H 12/19/18 13:57 Telemetry Monitoring [Cardiac Monitoring] [RC] Q8H 12/19/18 21:00 Folic Acid 1 mg PO BEDTIME Thiamine [Vitamin B-1] 100 mg PO BEDTIME 12/19/18 Lunch Regular Diet [DIET] 12/20/18 11:31 CBC WITH AUTO DIFF [HEME] Routine CMP [COMPREHENSIVE METABOLIC PN,CMP] [CHEM] Routine - Plan Plan:: 33 yo male admitted two days after a fall susptaining an ankle aprain. I suspect raz may have had a concussion. Chest pain: Ruled out for acute coronary sydnrome. CT chest negative ETOH abuse: on [facility] protocol, Raz is having symptoms that could be withdrawal but would not expect withdrawal symptoms with the amount he states he drinks Ankle sprain. Continue PT.
[2018-12-20 12:49] LABS: CHLORIDE,CL 105 mmol/L (98-107); SODIUM,NA 140 mmol/L (136-148)
[2018-12-20] MEDS: Pantoprazole 40 MG in Sodium Chloride 0.9% 10 ML IVPUSH SCH (13:06)
[2018-12-20] MEDS: Thiamine 100 MG Tab PO SCH (21:48)
[2018-12-20] MEDS: Folic Acid 1 MG Tab PO SCH (21:48)
[2018-12-21] MEDS: Acetaminophen 325 MG Tab PO PRN (09:15)
[2018-12-21 10:12] VITALS: BP 135/87
--- NOTE | 2018-12-21 10:58 | PCM.DCSUM1 ---
Discharge Summary - Discharge Data Discharge Date: 12/21/18 Discharge Disposition: Home, Self-Care 01 Condition: Good - Patient Summary/Data Consults: Consultations 12/19/18 12:20 PT Evaluation and Treatment [CONS] Routine Hospital Course: 33 yo male who was admitted with acute alcohol intoxication and right ankle sprain. He presents to the ED with complaints of chest and right foot pain following falling on stairs two days ago. He reports he binged on alcohol prior to admission. CT head, CT chest, ankle x-ray and abdominal ultrasound were unremarkable. He did have some reported tremors but do to his lack of chronic alcohol use it was felt he likely did not have ETOH dependence. PT was consulted and recommend a wheeled walker. Patient was discharged home to have follow up in the residency clinic. - Discharge Plan Home Medications: Home Meds Ibuprofen [Advil] 1 - 2 tab PO Q8H PRN 12/19/18 [History] Patient Handouts: Alcohol Intoxication, [id number] Referrals: Teja Astorga MD [Emergency Provider] - 12/29/18 2:30 pm - Discharge Summary/Plan Comment DC Time >30 min.: No - Patient Data Vitals - Most Recent: Last Vital Signs Temp 36.4 C 12/21/18 07:00 Pulse 68 12/21/18 07:00 Resp 16 12/21/18 07:00 BP 135/87 12/21/18 07:00 Pulse Ox 97 12/21/18 07:00 Weight - Most Recent: 102.013 kg I&O - Last 24 hours: Intake & Output 12/20/18 12/21/18 12/21/18 22:59 06:59 14:59 Intake Total 1970 500 Output Total 1300 1325 Balance 670 -825 Lab Results - Last 24 hrs: Laboratory Results - last 24 hr 12/20/18 12/20/18 Range/Units 12:09 12:09 WBC 5.06 (4.0-11.0) K/uL RBC 5.25 (4.50-5.90) M/uL Hgb 15.5 (13.0-17.0) g/dL Hct 44.4 (38.0-50.0) % MCV 84.6 (80.0-98.0) fL MCH 29.5 (27.0-32.0) pg MCHC 34.9 (31.0-37.0) g/dL RDW Std Deviation 38.3 (28.0-62.0) fl RDW Coeff of Enrrique 13 (11.0-15.0) % Plt Count 229 (150-400) K/uL MPV 9.90 (7.40-12.00) fL Neut % (Auto) 73.9 (48.0-80.0) % Lymph % (Auto) 19.6 (16.0-40.0) % [place] % (Auto) 4.9 (0.0-15.0) % Eos % (Auto) 0.8 (0.0-7.0) % Baso % (Auto) 0.8 (0.0-1.5) % Neut # (Auto) 3.7 (1.4-5.7) K/uL Lymph # (Auto) 1.0 (0.6-2.4) K/uL [place] # (Auto) 0.3 (0.0-0.8) K/uL Eos # (Auto) 0.0 (0.0-0.7) K/uL Baso # (Auto) 0.0 (0.0-0.1) K/uL Nucleated RBC % 0.0 /100WBC Nucleated RBCs # 0 K/uL Sodium 140 (136-148) mmol/L Potassium 4.2 (3.5-5.1) mmol/L Chloride 105 (98-107) mmol/L Carbon Dioxide 23.2 (21.0-32.0) mmol/L BUN 7 (7.0-18.0) mg/dL Creatinine 0.6 L (0.8-1.3) mg/dL Est Cr Clr Drug Dosing 158.02 mL/min Estimated GFR (MDRD) > 60.0 ml/min Glucose 96 (74-106) mg/dL Calcium 8.9 (8.5-10.1) mg/dL Total Bilirubin 2.0 H (0.2-1.0) mg/dL AST 36 (15-37) IU/L ALT 46 (14-63) IU/L Alkaline Phosphatase 80 (46-116) U/L Total Protein 7.6 (6.4-8.2) g/dL Albumin 3.8 (3.4-5.0) g/dL Globulin 3.8 (2.6-4.0) g/dL Albumin/Globulin Ratio 1.0 (0.9-1.6) Med Orders - Current: Current Medications Acetaminophen (Tylenol) 650 mg PO Q6H PRN PRN Reason: Pain Last Admin: 12/21/18 09:15 Dose: 650 mg Folic Acid (Folic Acid) 1 mg PO BEDTIME [facility] Last Admin: 12/20/18 21:48 Dose: 1 mg Sodium Chloride (Normal Saline) 1,000 mls @ 125 mls/hr IV ASDIRECTED [facility] Pantoprazole Sodium 40 mg/ (Sodium Chloride) 10 mls @ 300 mls/hr IVPUSH Q24H [facility] Last Admin: 12/20/18 13:06 Dose: 300 mls/hr Ibuprofen (Motrin) 200 mg PO Q4H PRN PRN Reason: Pain Lorazepam (Ativan) 0 mg IVPUSH Q4H PRN; Protocol PRN Reason: agitation Last Admin: 12/20/18 21:48 Dose: 1 mg Sodium Chloride (Saline Flush) 10 ml FLUSH ASDIRECTED PRN PRN Reason: Keep Vein Open Sodium Chloride (Saline Flush) 2.5 ml FLUSH ASDIRECTED PRN PRN Reason: Keep Vein Open Thiamine HCl (Vitamin B-1) 100 mg PO BEDTIME [facility] Last Admin: 12/20/18 21:48 Dose: 100 mg Discontinued Medications Al Hydroxide/Mg Hydroxide 15 (ml/ Lidocaine HCl 5 ml) 0 ml PO ONETIME ONE Stop: 12/19/18 12:08 Last Admin: 12/19/18 13:30 Dose: 20 each Multivitamins/Minerals 10 ml/Thiamine HCl 100 mg/ Folic Acid 1 mg/ Sodium Chloride 1,011.2 mls @ 999 mls/hr IV ONETIME ONE Stop: 12/19/18 08:56 Last Admin: 12/19/18 08:11 Dose: 999 mls/hr Sodium Chloride (Normal Saline) 1,000 mls @ 999 mls/hr IV .Bolus ONE Stop: 12/19/18 09:07 Last Admin: 12/19/18 08:11 Dose: 999 mls/hr Sodium Chloride (Normal Saline) 1,000 mls @ 125 mls/hr IV ASDIRECTED [facility] Last Admin: 12/20/18 06:57 Dose: 125 mls/hr Iopamidol (Isovue Multipack-370 (76%)) 50 ml IVPUSH ONETIME ONE Stop: 12/19/18 18:07 Last Admin: 12/19/18 18:07 Dose: 50 ml Lorazepam (Ativan) 1 mg IVPUSH ONETIME ONE Stop: 12/19/18 07:58 Last Admin: 12/19/18 08:00 Dose: 1 mg Lorazepam (Ativan) Confirm Administered Dose 2 mg .ROUTE .STK-MED ONE Stop: 12/19/18 07:57 Last Admin: 12/19/18 08:03 Dose: Not Given Lorazepam (Ativan) 1 mg IVPUSH ONETIME ONE Stop: 12/19/18 08:34 Last Admin: 12/19/18 08:39 Dose: 1 mg Potassium Chloride (Klor-Con M20) 40 meq PO ONETIME ONE Stop: 12/19/18 11:45 Last Admin: 12/19/18 12:30 Dose: 40 meq
== END 2018-12-21 12:05 | disposition home or self-care (01) ==
LOC: MW.ED 07:48 → MW.MS 09:58
PROVIDERS: ADMIT Internal Medicine; ATTEND Internal Medicine
DX: F10.129 Alcohol abuse with intoxication, unspecified (principal); R07.9 Chest pain, unspecified; M79.671 Pain in right foot; S93.401A Sprain of unspecified ligament of right ankle, initial encounter; I10 Essential (primary) hypertension; J45.909 Unspecified asthma, uncomplicated; W10.9XXA Fall (on) (from) unspecified stairs and steps, initial encounter
CPT/HCPCS: 36415; 70450; 71045; 71275; 73610; 76705; 80053; 80305; 83690; 83735; 84100; 84484; 85025; 85379; 93005; 96361; 96365; 96375; 96376; 97110; 97116; 97161; 99285; A9270; C9113; G0378; G0480; J2060; J3411; J7040; J7050; Q9967

== ENCOUNTER 2019-02-16 09:36 | Observation (INO) | payer OTHER ==
[2019-02-16] MEDS ORDERED: MVI, Adult with Vitamin K 10 ML, Thiamine 100 MG, Folic Acid 1 MG in Sodium Chloride 0.... IV ONE ×4 (09:44)
--- NOTE | 2019-02-16 09:49 | EDM.PDOC ---
ED HPI GENERAL MEDICAL PROBLEM - General Chief Complaint: Drug or Alcohol Abuse Stated Complaint: NUMBNESS, SHORTNESS OF BREATH Time Seen by Provider: 02/16/19 09:43 Source of Information: Reports: Patient History Limitations: Reports: No Limitations - History of Present Illness INITIAL COMMENTS - FREE TEXT/NARRATIVE: History of present illness: []Patient is an admitted alcoholic who has last drink last night and has been having continuous nonbloody vomiting and diarrhea throughout the night. patient wants to stop using alcohol and wants help with withdrawal symptoms. Have him prescription medications to help him as he is leaving town the day after tomorrow and going back home. He initially agreed to this however changed his mind after her symptoms did not improve with hydration and Ativan. Review of systems: As per history of present illness and below otherwise all systems reviewed and negative. Past medical history: As per history of present illness and as reviewed below otherwise noncontributory. Surgical history: As per history of present illness and as reviewed below otherwise noncontributory. Social history: No reported history of drug or alcohol abuse. Family history: As per history of present illness and as reviewed below otherwise noncontributory. Physical exam: General: Well developed, well nourished in NAD HEENT: Atraumatic, normocephalic, pupils reactive, negative for conjunctival pallor or scleral icterus, mucous membranes moist, throat clear, neck supple, nontender, trachea midline. Lungs: Clear to auscultation, breath sounds equal bilaterally, chest nontender. Heart: S1S2, regular, negative for clicks, rubs, or JVD. Abdomen: NABS, Soft, nondistended, nontender. Negative for masses or hepatosplenomegaly. Negative for costovertebral tenderness. Pelvis: Stable nontender. Genitourinary: Deferred. Rectal: Deferred. Extremities: Atraumatic, negative for cords or calf pain. Neurovascular unremarkable. Neuro: Awake, alert, oriented. Cranial nerves II through XII unremarkable. Cerebellum unremarkable. Motor and sensory unremarkable throughout. Exam nonfocal. Tremulous Skin:warm and dry Diagnostics: CBC, chemistry, magnesium level, alcohol and drug screen Therapeutics: Banana bag, Ativan-2 mg, Zofran ED Course: Stable Consulted hospitalist for possible observation for management of alcohol withdrawal symptoms Impression: Alcohol withdrawal Prescriptions: None Plan: Admit for observation Definitive disposition and diagnosis as appropriate pending reevaluation and review of above. Chest Pain Score (Numeric/FACES): 4 - Related Data Allergies Allergy/AdvReac Type Severity Reaction Status Date / Time No Known Allergies Allergy Verified 02/16/19 09:40 Home Meds: Home Meds Ibuprofen [Advil] 1 - 2 tab PO Q8H PRN 12/19/18 [History] LORazepam [Ativan] 1 mg PO BID #6 tablet 02/16/19 [Rx] Ondansetron [Zofran ODT] 4 mg PO Q6H PRN #12 tab.dis 02/16/19 [Rx] chlordiazePOXIDE [Librium] 25 mg PO TID #21 cap 02/16/19 [Rx] Past Medical History - Past Health History Medical/Surgical History: Denies Medical/Surgical History HEENT History: Reports: None Cardiovascular History: Reports: Hypertension Other Cardiovascular History: not on medication Respiratory History: Reports: Asthma Gastrointestinal History: Reports: Diverticulosis Genitourinary History: Reports: None Musculoskeletal History: Reports: None Neurological History: Reports: None Psychiatric History: Reports: Anxiety, Other (See Below) Other Psychiatric History: ETOH abuse Endocrine/Metabolic History: Reports: None Hematologic History: Reports: None Immunologic History: Reports: None Oncologic (Cancer) History: Reports: None Dermatologic History: Reports: None - Infectious Disease History Infectious Disease History: Reports: None - Past Surgical History Cardiovascular Surgical History: Reports: None Respiratory Surgical History: Reports: None GI Surgical History: Reports: Appendectomy, Other (See Below) Other GI Surgeries/Procedures: Repair of perforation from diverticulitis Male Surgical History: Reports: None Social & Family History - Family History Family Medical History: Noncontributory - Tobacco Use Smoking Status *Q: Former Smoker Used Tobacco, but Quit: Yes Month/Year Tobacco Last Used: 2008 - Caffeine Use Caffeine Use: Reports: None - Recreational Drug Use Recreational Drug Use: Yes Drug Use in Last 12 Months: No ED ROS GENERAL - Review of Systems Review Of Systems: See Below ED EXAM, GENERAL - Physical Exam Exam: See Below Course - Vital Signs Last Recorded V/S: Last Vital Signs Temp 97.3 F 02/16/19 09:37 Pulse 102 H 02/16/19 09:37 Resp 18 02/16/19 09:37 BP 160/99 H 02/16/19 09:37 Pulse Ox 97 02/16/19 09:37 - Orders/Labs/Meds Orders: Active Orders 24 hr Category Date Time Status Patient Status [ADT] Stat ADT 02/16/19 11:35 Active Sodium Chloride 0.9% [Normal Saline] 1,000 ml Med 02/16/19 11:01 Active IV .Bolus Medication Orders Sodium Chloride (Normal Saline) 1,000 mls @ 999 mls/hr IV .Bolus ONE Stop: 02/16/19 12:01 Last Admin: 02/16/19 11:09 Dose: 999 mls/hr Labs: Laboratory Tests 02/16/19 02/16/19 02/16/19 Range/Units 10:00 10:00 10:00 WBC 4.85 (4.0-11.0) K/uL RBC 5.26 (4.50-5.90) M/uL Hgb 15.9 (13.0-17.0) g/dL Hct 44.8 (38.0-50.0) % MCV 85.2 (80.0-98.0) fL MCH 30.2 (27.0-32.0) pg MCHC 35.5 (31.0-37.0) g/dL RDW Std Deviation 39.7 (28.0-62.0) fl RDW Coeff of Enrrique 13 (11.0-15.0) % Plt Count 284 (150-400) K/uL MPV 9.40 (7.40-12.00) fL Neut % (Auto) 72.8 (48.0-80.0) % Lymph % (Auto) 22.5 (16.0-40.0) % [place] % (Auto) 3.1 (0.0-15.0) % Eos % (Auto) 0.2 (0.0-7.0) % Baso % (Auto) 1.4 (0.0-1.5) % Neut # (Auto) 3.5 (1.4-5.7) K/uL Lymph # (Auto) 1.1 (0.6-2.4) K/uL [place] # (Auto) 0.2 (0.0-0.8) K/uL Eos # (Auto) 0.0 (0.0-0.7) K/uL Baso # (Auto) 0.1 (0.0-0.1) K/uL Nucleated RBC % 0.0 /100WBC Nucleated RBCs # 0 K/uL Sodium 139 (136-148) mmol/L Potassium 3.8 (3.5-5.1) mmol/L Chloride 100 (98-107) mmol/L Carbon Dioxide 26.8 (21.0-32.0) mmol/L BUN 6 L (7.0-18.0) mg/dL Creatinine 0.7 L (0.8-1.3) mg/dL Est Cr Clr Drug Dosing 135.45 mL/min Estimated GFR (MDRD) > 60.0 ml/min Glucose 103 (74-106) mg/dL Calcium 9.5 (8.5-10.1) mg/dL Magnesium 1.7 L (1.8-2.4) mg/dL Total Bilirubin 1.1 H (0.2-1.0) mg/dL AST 78 H (15-37) IU/L ALT 59 (14-63) IU/L Alkaline Phosphatase 82 (46-116) U/L Total Protein 8.0 (6.4-8.2) g/dL Albumin 4.1 (3.4-5.0) g/dL Globulin 3.9 (2.6-4.0) g/dL Albumin/Globulin Ratio 1.1 (0.9-1.6) Urine Opiates Screen (NEGATIVE) Ur Oxycodone Screen (NEGATIVE) Urine Methadone Screen (NEGATIVE) Ur Barbiturates Screen (NEGATIVE) Ur Phencyclidine Scrn (NEGATIVE) Ur Amphetamine Screen (NEGATIVE) U Methamphetamines Scrn (NEGATIVE) U Benzodiazepines Scrn (NEGATIVE) U Cocaine Metab Screen (NEGATIVE) U Marijuana (THC) Screen (NEGATIVE) Ethyl Alcohol 135 mg/dL 02/16/19 Range/Units 11:03 WBC (4.0-11.0) K/uL RBC (4.50-5.90) M/uL Hgb (13.0-17.0) g/dL Hct (38.0-50.0) % MCV (80.0-98.0) fL MCH (27.0-32.0) pg MCHC (31.0-37.0) g/dL RDW Std Deviation (28.0-62.0) fl RDW Coeff of Enrrique (11.0-15.0) % Plt Count (150-400) K/uL MPV (7.40-12.00) fL Neut % (Auto) (48.0-80.0) % Lymph % (Auto) (16.0-40.0) % [place] % (Auto) (0.0-15.0) % Eos % (Auto) (0.0-7.0) % Baso % (Auto) (0.0-1.5) % Neut # (Auto) (1.4-5.7) K/uL Lymph # (Auto) (0.6-2.4) K/uL [place] # (Auto) (0.0-0.8) K/uL Eos # (Auto) (0.0-0.7) K/uL Baso # (Auto) (0.0-0.1) K/uL Nucleated RBC % /100WBC Nucleated RBCs # K/uL Sodium (136-148) mmol/L Potassium (3.5-5.1) mmol/L Chloride (98-107) mmol/L Carbon Dioxide (21.0-32.0) mmol/L BUN (7.0-18.0) mg/dL Creatinine (0.8-1.3) mg/dL Est Cr Clr Drug Dosing mL/min Estimated GFR (MDRD) ml/min Glucose (74-106) mg/dL Calcium (8.5-10.1) mg/dL Magnesium (1.8-2.4) mg/dL Total Bilirubin (0.2-1.0) mg/dL AST (15-37) IU/L ALT (14-63) IU/L Alkaline Phosphatase (46-116) U/L Total Protein (6.4-8.2) g/dL Albumin (3.4-5.0) g/dL Globulin (2.6-4.0) g/dL Albumin/Globulin Ratio (0.9-1.6) Urine Opiates Screen NEGATIVE (NEGATIVE) Ur Oxycodone Screen NEGATIVE (NEGATIVE) Urine Methadone Screen NEGATIVE (NEGATIVE) Ur Barbiturates Screen NEGATIVE (NEGATIVE) Ur Phencyclidine Scrn NEGATIVE (NEGATIVE) Ur Amphetamine Screen NEGATIVE (NEGATIVE) U Methamphetamines Scrn NEGATIVE (NEGATIVE) U Benzodiazepines Scrn NEGATIVE (NEGATIVE) U Cocaine Metab Screen NEGATIVE (NEGATIVE) U Marijuana (THC) Screen NEGATIVE (NEGATIVE) Ethyl Alcohol mg/dL Meds: Medications Generic Name Dose Route Start Last Admin Trade Name Freq PRN Reason Stop Dose Admin Sodium Chloride 1,000 mls @ 999 mls/hr 02/16/19 11:01 02/16/19 11:09 Normal Saline IV 02/16/19 12:01 999 mls/hr .Bolus ONE Administration Discontinued Medications Generic Name Dose Route Start Last Admin Trade Name Freq PRN Reason Stop Dose Admin Multivitamins/Minerals 10 ml/ 1,011.2 mls @ 999 mls/hr 02/16/19 09:44 10:05 Thiamine HCl 100 mg/ Folic IV 02/16/19 10:44 999 mls/hr Acid 1 mg/ Sodium Chloride ONETIME ONE Administration Lorazepam 1 mg 02/16/19 09:50 02/16/19 10:05 Ativan IVPUSH 02/16/19 09:51 1 mg ONETIME ONE Administration Lorazepam 1 mg 02/16/19 10:49 02/16/19 10:58 Ativan IVPUSH 02/16/19 10:50 1 mg ONETIME ONE Administration Departure - Departure Time of Disposition: 11:42 Disposition: Home, Self-Care 01 Condition: Fair Clinical Impression: Alcohol withdrawal Qualifiers: Complication of substance-induced condition: uncomplicated Qualified Code(s): F10.230 - Alcohol dependence with withdrawal, uncomplicated - Discharge Information *PRESCRIPTION DRUG MONITORING PROGRAM REVIEWED*: Not Applicable *COPY OF PRESCRIPTION DRUG MONITORING REPORT IN PATIENT CATRACHO: Not Applicable Prescriptions: chlordiazePOXIDE [Librium] 25 mg PO TID #21 cap LORazepam [Ativan] 1 mg PO BID #6 tablet Ondansetron [Zofran ODT] 4 mg PO Q6H PRN #12 tab.dis PRN Reason: Nausea Referrals: PCP,Unknown [Primary Care Provider] - Forms: ED Department Discharge Additional Instructions: The following information is given to patients seen in the emergency department who are being discharged to home. This information is to outline your options for follow-up care. We provide all patients seen in our emergency department with a follow-up referral. The need for follow-up, as well as the timing and circumstances, are variable depending upon the specifics of your emergency department visit. If you don't have a primary care physician on staff, we will provide you with a referral. We always advise you to contact your personal physician following an emergency department visit to inform them of the circumstance of the visit and for follow-up with them and/or the need for any referrals to a consulting specialist. The emergency department will also refer you to a specialist when appropriate. This referral assures that you have the opportunity for follow-up care with a specialist. All of these measure are taken in an effort to provide you with optimal care, which includes your follow-up. Under all circumstances we always encourage you to contact your private physician who remains a resource for coordinating your care. When calling for follow-up care, please make the office aware that this follow-up is from your recent emergency room visit. If for any reason you are refused follow-up, please contact the [facility] Department at and asked to speak to the emergency department charge nurse. Take meds as directed, follow up with your primary care physician, return to ER if symptoms worsen or change. [facility] [address] [place] [id number] - My Orders Last 24 Hours: My Active Orders 02/16/19 11:01 Sodium Chloride 0.9% [Normal Saline] 1,000 ml IV .Bolus - Assessment/Plan Last 24 Hours: My Active Orders 02/16/19 11:01 Sodium Chloride 0.9% [Normal Saline] 1,000 ml IV .Bolus
[2019-02-16] MEDS ORDERED: LORazepam 2 MG/ML SDV IVPUSH ONE ×2 (09:50→10:49)
[2019-02-16 10:38] LABS: BLOOD UREA NITROGEN,BUN 6 mg/dL (7.0-18.0); CARBON DIOXIDE,CO2 26.8 mmol/L (21.0-32.0); CHLORIDE,CL 100 mmol/L (98-107); GLUCOSE RANDOM 103 mg/dL (74-106); POTASSIUM,K 3.8 mmol/L (3.5-5.1); SODIUM,NA 139 mmol/L (136-148)
[2019-02-16] MEDS ORDERED: Sodium Chloride 0.9% 1,000 ML IV ONE (11:01)
[2019-02-16] MEDS ORDERED: Magnesium Sulfate/Water 4 GM in Premix Bag 1 BAG IV ONE (11:48)
[2019-02-16] MEDS ORDERED: LORazepam 2 MG/ML SDV IV PRN (11:48)
[2019-02-16] MEDS ORDERED: Ondansetron 4 MG/2 ML SDV IVPUSH PRN (11:48)
--- NOTE | 2019-02-16 11:48 | PCM.HP.2 ---
<Romi Vargas M - Last Filed: 02/16/19 12:18> H&P History of Present Illness - General Date of Service: 02/16/19 Admit Problem/Dx: Admission Diagnosis/Problem Admission Diagnosis/Problem Alcohol withdrawal syndrome Source of Information: Patient History Limitations: Reports: No Limitations - History of Present Illness Initial Comments - Free Text/Narative: This 33 year old male with pmh of diverticulitis and alcohol abuse presented to the ED today with concerns of alcohol withdrawal and intractable nausea, vomiting and diarrhea overnight. He reports he drinks daily, very vague on how much, reports trying to cut back, last drink was last evening around 10 pm. He reports he drinks beer. Reports he has gone through withdrawals in the past and had a seizure. He reports nausea, vomiting and diarrhea started overnight. He denies black or blood stool or emesis. He denies abdominal pain or trouble urinating. He denies fevers, chills, chest pain or palpitations. he denies history of CAD or DM. Reports history of HTN, but is currently not on medication for this. He would like information on treatment possibly outpatient at this time. He would like help during this acute phase of withdrawal. In the ED CBC is WNL. K+3.8, Magnesium 1.7, bilirubin 1.1, mild elevation in AST. ETOH 135. Tox screen negative. He was treated with Ativan and NS in the ED. He will be admitted for nausea diarrhea and alcohol withdrawal. Chest Pain Score (Numeric/FACES): 4 - Related Data Allergies/Adverse Reactions: Allergies Allergy/AdvReac Type Severity Reaction Status Date / Time No Known Allergies Allergy Verified 02/16/19 12:08 Home Medications: Home Meds Ibuprofen [Advil] 1 - 2 tab PO Q8H PRN 12/19/18 [History] Calcium Carb/D3/Magnesium/Zinc [Tito Mag Zinc + D3] 1 each PO DAILY 02/16/19 [ History] Fish Oil/[place]-3 Fatty Acids [Fish Oil 1,000 MG] 1 each PO DAILY 02/16/19 [ History] Multivitamin [Multi-Vitamin Daily] 1 tab PO DAILY 02/16/19 [History] chlordiazePOXIDE [Librium] 25 mg PO TID #21 cap 02/16/19 [Rx] Past Medical History - Past Health History Medical/Surgical History: Denies Medical/Surgical History HEENT History: Reports: None Cardiovascular History: Reports: Hypertension Other Cardiovascular History: not on medication Respiratory History: Reports: Asthma Gastrointestinal History: Reports: Diverticulosis Genitourinary History: Reports: None Musculoskeletal History: Reports: None Neurological History: Reports: None. Denies: CVA, TIA Psychiatric History: Reports: Anxiety, Other (See Below) Other Psychiatric History: ETOH abuse Endocrine/Metabolic History: Reports: Obesity/BMI 30+. Denies: Diabetes, Type II Hematologic History: Reports: None Immunologic History: Reports: None Oncologic (Cancer) History: Reports: None Dermatologic History: Reports: None - Infectious Disease History Infectious Disease History: Reports: None - Past Surgical History Cardiovascular Surgical History: Reports: None Respiratory Surgical History: Reports: None GI Surgical History: Reports: Appendectomy, Other (See Below) Other GI Surgeries/Procedures: Repair of perforation from diverticulitis Male Surgical History: Reports: None Social & Family History - Family History Family Medical History: Noncontributory - Tobacco Use Smoking Status *Q: Former Smoker Used Tobacco, but Quit: Yes Month/Year Tobacco Last Used: 2008 - Caffeine Use Caffeine Use: Reports: None - Alcohol Use Alcohol Use History: No Days Per Week of Alcohol Use: 7 Number of Drinks Per Day: 5 Total Drinks Per Week: 35 Alcohol Use Frequency: Daily - Recreational Drug Use Recreational Drug Use: Yes Drug Use in Last 12 Months: No H&P Review of Systems - Review of Systems: Review Of Systems: See Below General: Reports: Malaise, Fatigue. Denies: Fever, Chills HEENT: Reports: No Symptoms. Denies: Headaches, Sinus Congestion, Sore Throat Pulmonary: Reports: No Symptoms. Denies: Shortness of Breath, Cough, Sputum Cardiovascular: Reports: No Symptoms. Denies: Chest Pain, Edema Gastrointestinal: Reports: Diarrhea, Nausea, Vomiting. Denies: Abdominal Pain, Black Stool, Bloody Stool Genitourinary: Reports: No Symptoms. Denies: Dysuria, Frequency, Burning Musculoskeletal: Reports: No Symptoms Skin: Reports: No Symptoms Psychiatric: Reports: No Symptoms Neurological: Reports: Tremors Hematologic/Lymphatic: Reports: No Symptoms Immunologic: Reports: No Symptoms Exam - Exam Exam: See Below - Vital Signs Vital Signs: Last Vital Signs Temp 97.3 F 02/16/19 09:37 Pulse 79 02/16/19 11:42 Resp 16 02/16/19 11:42 BP 100/67 02/16/19 11:42 Pulse Ox 97 02/16/19 11:42 Weight: 101.2 kg - Exam General: Alert, Oriented, Cooperative HEENT: Conjunctiva Clear, Posterior Pharynx Clear. No: Mucosa Moist & Spearfish (dry ) Neck: Supple, Trachea Midline Lungs: Clear to Auscultation, Normal Respiratory Effort Cardiovascular: Regular Rate, Regular Rhythm GI/Abdominal Exam: Normal Bowel Sounds, Soft, Non-Tender, No Distention Extremities: Normal Inspection, Normal Range of Motion, Non-Tender, No Pedal Edema Neurological: Cranial Nerves Intact Neuro Extensive - Mental Status: Alert, Oriented x3 Neuro Extensive - Motor, Sensory, Reflexes: CN II-XII Intact Psychiatric: Withdrawal Symptoms (tremors noted) - Patient Data Lab Results Last 24 hrs: Laboratory Results - last 24 hr 02/16/19 02/16/19 02/16/19 Range/Units 10:00 10:00 10:00 WBC 4.85 (4.0-11.0) K/uL RBC 5.26 (4.50-5.90) M/uL Hgb 15.9 (13.0-17.0) g/dL Hct 44.8 (38.0-50.0) % MCV 85.2 (80.0-98.0) fL MCH 30.2 (27.0-32.0) pg MCHC 35.5 (31.0-37.0) g/dL RDW Std Deviation 39.7 (28.0-62.0) fl RDW Coeff of Enrrique 13 (11.0-15.0) % Plt Count 284 (150-400) K/uL MPV 9.40 (7.40-12.00) fL Neut % (Auto) 72.8 (48.0-80.0) % Lymph % (Auto) 22.5 (16.0-40.0) % [place] % (Auto) 3.1 (0.0-15.0) % Eos % (Auto) 0.2 (0.0-7.0) % Baso % (Auto) 1.4 (0.0-1.5) % Neut # (Auto) 3.5 (1.4-5.7) K/uL Lymph # (Auto) 1.1 (0.6-2.4) K/uL [place] # (Auto) 0.2 (0.0-0.8) K/uL Eos # (Auto) 0.0 (0.0-0.7) K/uL Baso # (Auto) 0.1 (0.0-0.1) K/uL Nucleated RBC % 0.0 /100WBC Nucleated RBCs # 0 K/uL Sodium 139 (136-148) mmol/L Potassium 3.8 (3.5-5.1) mmol/L Chloride 100 (98-107) mmol/L Carbon Dioxide 26.8 (21.0-32.0) mmol/L BUN 6 L (7.0-18.0) mg/dL Creatinine 0.7 L (0.8-1.3) mg/dL Est Cr Clr Drug Dosing 135.45 mL/min Estimated GFR (MDRD) > 60.0 ml/min Glucose 103 (74-106) mg/dL Calcium 9.5 (8.5-10.1) mg/dL Magnesium 1.7 L (1.8-2.4) mg/dL Total Bilirubin 1.1 H (0.2-1.0) mg/dL AST 78 H (15-37) IU/L ALT 59 (14-63) IU/L Alkaline Phosphatase 82 (46-116) U/L Total Protein 8.0 (6.4-8.2) g/dL Albumin 4.1 (3.4-5.0) g/dL Globulin 3.9 (2.6-4.0) g/dL Albumin/Globulin Ratio 1.1 (0.9-1.6) Urine Opiates Screen (NEGATIVE) Ur Oxycodone Screen (NEGATIVE) Urine Methadone Screen (NEGATIVE) Ur Barbiturates Screen (NEGATIVE) Ur Phencyclidine Scrn (NEGATIVE) Ur Amphetamine Screen (NEGATIVE) U Methamphetamines Scrn (NEGATIVE) U Benzodiazepines Scrn (NEGATIVE) U Cocaine Metab Screen (NEGATIVE) U Marijuana (THC) Screen (NEGATIVE) Ethyl Alcohol 135 mg/dL 02/16/19 Range/Units 11:03 WBC (4.0-11.0) K/uL RBC (4.50-5.90) M/uL Hgb (13.0-17.0) g/dL Hct (38.0-50.0) % MCV (80.0-98.0) fL MCH (27.0-32.0) pg MCHC (31.0-37.0) g/dL RDW Std Deviation (28.0-62.0) fl RDW Coeff of Enrrique (11.0-15.0) % Plt Count (150-400) K/uL MPV (7.40-12.00) fL Neut % (Auto) (48.0-80.0) % Lymph % (Auto) (16.0-40.0) % [place] % (Auto) (0.0-15.0) % Eos % (Auto) (0.0-7.0) % Baso % (Auto) (0.0-1.5) % Neut # (Auto) (1.4-5.7) K/uL Lymph # (Auto) (0.6-2.4) K/uL [place] # (Auto) (0.0-0.8) K/uL Eos # (Auto) (0.0-0.7) K/uL Baso # (Auto) (0.0-0.1) K/uL Nucleated RBC % /100WBC Nucleated RBCs # K/uL Sodium (136-148) mmol/L Potassium (3.5-5.1) mmol/L Chloride (98-107) mmol/L Carbon Dioxide (21.0-32.0) mmol/L BUN (7.0-18.0) mg/dL Creatinine (0.8-1.3) mg/dL Est Cr Clr Drug Dosing mL/min Estimated GFR (MDRD) ml/min Glucose (74-106) mg/dL Calcium (8.5-10.1) mg/dL Magnesium (1.8-2.4) mg/dL Total Bilirubin (0.2-1.0) mg/dL AST (15-37) IU/L ALT (14-63) IU/L Alkaline Phosphatase (46-116) U/L Total Protein (6.4-8.2) g/dL Albumin (3.4-5.0) g/dL Globulin (2.6-4.0) g/dL Albumin/Globulin Ratio (0.9-1.6) Urine Opiates Screen NEGATIVE (NEGATIVE) Ur Oxycodone Screen NEGATIVE (NEGATIVE) Urine Methadone Screen NEGATIVE (NEGATIVE) Ur Barbiturates Screen NEGATIVE (NEGATIVE) Ur Phencyclidine Scrn NEGATIVE (NEGATIVE) Ur Amphetamine Screen NEGATIVE (NEGATIVE) U Methamphetamines Scrn NEGATIVE (NEGATIVE) U Benzodiazepines Scrn NEGATIVE (NEGATIVE) U Cocaine Metab Screen NEGATIVE (NEGATIVE) U Marijuana (THC) Screen NEGATIVE (NEGATIVE) Ethyl Alcohol mg/dL Result Diagrams: 02/16/19 10:00 02/16/19 10:00 *Q Meaningful Use (ADM) - VTE *Q VTE Pharmacological Contraindications *Q: Risk of Bleeding - Problem List (1) Alcohol withdrawal SNOMED Code(s): 278014704 ICD Code: F10.239 - ALCOHOL DEPENDENCE WITH WITHDRAWAL, UNSPECIFIED Status : Acute Current Visit: Yes Qualifiers: Complication of substance-induced condition: uncomplicated Qualified Code(s ): F10.230 - Alcohol dependence with withdrawal, uncomplicated (2) Nausea & vomiting SNOMED Code(s): 59667819 ICD Code: R11.2 - NAUSEA WITH VOMITING, UNSPECIFIED Status: Acute Current Visit: Yes (3) Diarrhea SNOMED Code(s): 11691286 ICD Code: R19.7 - DIARRHEA, UNSPECIFIED Status: Acute Current Visit: Yes (4) Alcohol intoxication SNOMED Code(s): 15806589 ICD Code: F10.929 - ALCOHOL USE, UNSPECIFIED WITH INTOXICATION, UNSPECIFIED Status: Acute Current Visit: No (5) Hypomagnesemia SNOMED Code(s): 976239954 ICD Code: E83.42 - HYPOMAGNESEMIA Status: Acute Current Visit: No (6) Hx of diverticulitis of colon SNOMED Code(s): 569161644938912 ICD Code: Z87.19 - PERSONAL HISTORY OF OTHER DISEASES OF THE DIGESTIVE SYSTEM Status: Acute Current Visit: Yes Problem List Initiated/Reviewed/Updated: Yes Orders Last 24hrs: Active Orders 24 hr Category Date Time Status Patient Status [ADT] Stat ADT 02/16/19 11:35 Ordered Sodium Chloride 0.9% [Normal Saline] 1,000 ml Med 02/16/19 11:01 Active IV .Bolus Medication Orders Sodium Chloride (Normal Saline) 1,000 mls @ 999 mls/hr IV .Bolus ONE Stop: 02/16/19 12:01 Last Admin: 02/16/19 11:09 Dose: 999 mls/hr Assessment/Plan Comment:: This 33 year old male admitted with alcohol withdrawal, N/V and diarrhea 1. Alcohol withdrawal: CIWAA protocol with Ativan PRN. Thiamine and folic acid supplementation. Replace magnesium. Bili elevated, but near baseline. US of liver in December, revealed fatty infiltration. Will obtain acetaminophen level and hepatitis panel. He would like outpatient treatment. Will give Human services resources for this. 2. N/V Diarrhea: Keep IVFs for now. Monitor BMP and electrolytes. Obtain stool studies. Zofran PRN for nausea. FL diet for now until nausea has improved. No abdominal pain at all. VTE prophylaxis: SCDs and ambulation Dispo: 1-2 days - Mortality Measure Prognosis:: Good <Ayan Espinoza - Last Filed: 02/16/19 15:36> H&P History of Present Illness - General Admit Problem/Dx: Admission Diagnosis/Problem Admission Diagnosis/Problem Alcohol withdrawal syndrome I have seen and examined the patient independently of Romi Vargas CNP. I have reviewed and agree with the plan of care as outlined for this patient by her. I have discussed the case with her. Please see orders. Exam - Vital Signs Vital Signs: Last Vital Signs Temp 36.8 C 02/16/19 12:38 Pulse 106 H 02/16/19 12:38 Resp 18 02/16/19 12:38 BP 135/91 H 02/16/19 12:38 Pulse Ox 97 02/16/19 12:38 - Patient Data Lab Results Last 24 hrs: Laboratory Results - last 24 hr 02/16/19 02/16/19 02/16/19 Range/Units 10:00 10:00 10:00 WBC 4.85 (4.0-11.0) K/uL RBC 5.26 (4.50-5.90) M/uL Hgb 15.9 (13.0-17.0) g/dL Hct 44.8 (38.0-50.0) % MCV 85.2 (80.0-98.0) fL MCH 30.2 (27.0-32.0) pg MCHC 35.5 (31.0-37.0) g/dL RDW Std Deviation 39.7 (28.0-62.0) fl RDW Coeff of Enrrique 13 (11.0-15.0) % Plt Count 284 (150-400) K/uL MPV 9.40 (7.40-12.00) fL Neut % (Auto) 72.8 (48.0-80.0) % Lymph % (Auto) 22.5 (16.0-40.0) % [place] % (Auto) 3.1 (0.0-15.0) % Eos % (Auto) 0.2 (0.0-7.0) % Baso % (Auto) 1.4 (0.0-1.5) % Neut # (Auto) 3.5 (1.4-5.7) K/uL Lymph # (Auto) 1.1 (0.6-2.4) K/uL [place] # (Auto) 0.2 (0.0-0.8) K/uL Eos # (Auto) 0.0 (0.0-0.7) K/uL Baso # (Auto) 0.1 (0.0-0.1) K/uL Nucleated RBC % 0.0 /100WBC Nucleated RBCs # 0 K/uL Sodium 139 (136-148) mmol/L Potassium 3.8 (3.5-5.1) mmol/L Chloride 100 (98-107) mmol/L Carbon Dioxide 26.8 (21.0-32.0) mmol/L BUN 6 L (7.0-18.0) mg/dL Creatinine 0.7 L (0.8-1.3) mg/dL Est Cr Clr Drug Dosing 135.45 mL/min Estimated GFR (MDRD) > 60.0 ml/min Glucose 103 (74-106) mg/dL Calcium 9.5 (8.5-10.1) mg/dL Magnesium 1.7 L (1.8-2.4) mg/dL Total Bilirubin 1.1 H (0.2-1.0) mg/dL AST 78 H (15-37) IU/L ALT 59 (14-63) IU/L Alkaline Phosphatase 82 (46-116) U/L Total Protein 8.0 (6.4-8.2) g/dL Albumin 4.1 (3.4-5.0) g/dL Globulin 3.9 (2.6-4.0) g/dL Albumin/Globulin Ratio 1.1 (0.9-1.6) Urine Opiates Screen (NEGATIVE) Ur Oxycodone Screen (NEGATIVE) Urine Methadone Screen (NEGATIVE) Acetaminophen ug/mL Ur Barbiturates Screen (NEGATIVE) Ur Phencyclidine Scrn (NEGATIVE) Ur Amphetamine Screen (NEGATIVE) U Methamphetamines Scrn (NEGATIVE) U Benzodiazepines Scrn (NEGATIVE) U Cocaine Metab Screen (NEGATIVE) U Marijuana (THC) Screen (NEGATIVE) Ethyl Alcohol 135 mg/dL 02/16/19 02/16/19 Range/Units 10:00 11:03 WBC (4.0-11.0) K/uL RBC (4.50-5.90) M/uL Hgb (13.0-17.0) g/dL Hct (38.0-50.0) % MCV (80.0-98.0) fL MCH (27.0-32.0) pg MCHC (31.0-37.0) g/dL RDW Std Deviation (28.0-62.0) fl RDW Coeff of Enrrique (11.0-15.0) % Plt Count (150-400) K/uL MPV (7.40-12.00) fL Neut % (Auto) (48.0-80.0) % Lymph % (Auto) (16.0-40.0) % [place] % (Auto) (0.0-15.0) % Eos % (Auto) (0.0-7.0) % Baso % (Auto) (0.0-1.5) % Neut # (Auto) (1.4-5.7) K/uL Lymph # (Auto) (0.6-2.4) K/uL [place] # (Auto) (0.0-0.8) K/uL Eos # (Auto) (0.0-0.7) K/uL Baso # (Auto) (0.0-0.1) K/uL Nucleated RBC % /100WBC Nucleated RBCs # K/uL Sodium (136-148) mmol/L Potassium (3.5-5.1) mmol/L Chloride (98-107) mmol/L Carbon Dioxide (21.0-32.0) mmol/L BUN (7.0-18.0) mg/dL Creatinine (0.8-1.3) mg/dL Est Cr Clr Drug Dosing mL/min Estimated GFR (MDRD) ml/min Glucose (74-106) mg/dL Calcium (8.5-10.1) mg/dL Magnesium (1.8-2.4) mg/dL Total Bilirubin (0.2-1.0) mg/dL AST (15-37) IU/L ALT (14-63) IU/L Alkaline Phosphatase (46-116) U/L Total Protein (6.4-8.2) g/dL Albumin (3.4-5.0) g/dL Globulin (2.6-4.0) g/dL Albumin/Globulin Ratio (0.9-1.6) Urine Opiates Screen NEGATIVE (NEGATIVE) Ur Oxycodone Screen NEGATIVE (NEGATIVE) Urine Methadone Screen NEGATIVE (NEGATIVE) Acetaminophen <2.0 ug/mL Ur Barbiturates Screen NEGATIVE (NEGATIVE) Ur Phencyclidine Scrn NEGATIVE (NEGATIVE) Ur Amphetamine Screen NEGATIVE (NEGATIVE) U Methamphetamines Scrn NEGATIVE (NEGATIVE) U Benzodiazepines Scrn NEGATIVE (NEGATIVE) U Cocaine Metab Screen NEGATIVE (NEGATIVE) U Marijuana (THC) Screen NEGATIVE (NEGATIVE) Ethyl Alcohol mg/dL Result Diagrams: 02/16/19 10:00 02/16/19 10:00 Iftikhar Results Last 24 hrs: Microbiology 02/16/19 14:25 Campylobacter Antigen Assay - Final Stool / Feces NEGATIVE CAMPYLOBACTER AG REFERENCE RANGE: NEGATIVE Orders Last 24hrs: Active Orders 24 hr Category Date Time Status Patient Status [ADT] Stat ADT 02/16/19 11:35 Active CIWAA Assessment [RC] Q4H Care 02/16/19 11:48 Active Intake and Output [RC] Q12H Care 02/16/19 11:49 Active May Shower [RC] ASDIRECTED Care 02/16/19 11:48 Active Oxygen Therapy [RC] PRN Care 02/16/19 11:48 Active Telemetry Monitoring [Cardiac Monitoring] [RC] Q8H Care 02/16/19 11:48 Active Up With Assistance [RC] ASDIRECTED Care 02/16/19 11:48 Active VTE/DVT Education [RC] PER UNIT ROUTINE Care 02/16/19 11:48 Active Vital Signs [RC] Q4H Care 02/16/19 11:48 Active Advance Diet Instructions [DIET] Diet 02/16/19 Dinner Active Full Liquid Diet [DIET] Diet 09/13/19 Lunch Active CBC WITH AUTO DIFF [HEME] AM Lab 02/17/19 05:11 Ordered CDIFF TOX A+B [OP] Routine Lab 02/16/19 14:25 Received COMPREHENSIVE METABOLIC PN,CMP [CHEM] AM Lab 02/17/19 05:11 Ordered CULTURE STOOL + CAMPY+SHIGATOX [RM] Routine Lab 02/16/19 14:25 Results HEPATITIS PANEL (4) [REF] Routine Lab 02/16/19 10:00 Received MAGNESIUM [CHEM] AM Lab 02/17/19 05:11 Ordered Acetaminophen [Tylenol] Med 02/16/19 12:07 Active 650 mg PO Q4H PRN Folic Acid Med 02/16/19 21:00 Active 1 mg PO BEDTIME LORazepam [Ativan] Med 02/16/19 12:36 Active See Protocol IV Q4H PRN LORazepam [Ativan] Med 02/16/19 12:35 Active See Protocol PO Q4H PRN Ondansetron [Zofran] Med 02/16/19 11:48 Active 4 mg IVPUSH Q4H PRN Sodium Chloride 0.9% [Normal Saline] 1,000 ml Med 02/16/19 12:00 Active IV Q8H Thiamine [Vitamin B-1] Med 02/16/19 21:00 Active 100 mg PO BEDTIME Isolation [COMM] Stat Oth 02/16/19 11:53 Ordered Seizure Precautions [OM.PC] Routine Oth 02/16/19 11:48 Ordered Resuscitation Status Routine Resus Stat 02/16/19 11:48 Ordered Medication Orders Acetaminophen (Tylenol) 650 mg PO Q4H PRN PRN Reason: Pain Last Admin: 02/16/19 12:23 Dose: 650 mg Folic Acid (Folic Acid) 1 mg PO BEDTIME VERNELL Sodium Chloride (Normal Saline) 1,000 mls @ 125 mls/hr IV Q8H VERNELL Last Admin: 02/16/19 12:24 Dose: 125 mls/hr Lorazepam (Ativan) 0 mg PO Q4H PRN; Protocol PRN Reason: CIWAA Lorazepam (Ativan) 0 mg IV Q4H PRN; Protocol PRN Reason: CIWAA Ondansetron HCl (Zofran) 4 mg IVPUSH Q4H PRN PRN Reason: Nausea Thiamine HCl (Vitamin B-1) 100 mg PO BEDTIME VERNELL
[2019-02-16] MEDS ORDERED: Magnesium Sulfate/Water 2 GM in Premix Bag 1 BAG IV ONE (12:06)
[2019-02-16] MEDS: Acetaminophen 325 MG Tab PO PRN ×2 (12:23→20:46)
[2019-02-16] MEDS: Sodium Chloride 0.9% 1,000 ML IV SCH ×2 (12:24→20:36)
[2019-02-16] MEDS ORDERED: LORazepam 0.5 MG Tab PO PRN (12:35)
[2019-02-16] MEDS: Thiamine 100 MG Tab PO SCH (20:46)
[2019-02-16] MEDS: Folic Acid 1 MG Tab PO SCH (20:46)
[2019-02-17] MEDS: Sodium Chloride 0.9% 1,000 ML IV SCH ×3 (04:37→20:11)
[2019-02-17 06:37] LABS: BLOOD UREA NITROGEN,BUN 6 mg/dL (7.0-18.0); CHLORIDE,CL 106 mmol/L (98-107); GLUCOSE RANDOM 93 mg/dL (74-106); POTASSIUM,K 3.8 mmol/L (3.5-5.1); SODIUM,NA 140 mmol/L (136-148)
[2019-02-17] MEDS: LORazepam 2 MG/ML SDV IV PRN ×2 (08:07→12:06)
--- NOTE | 2019-02-17 12:06 | PCM.PN ---
<Nicole Bryan - Last Filed: 02/17/19 12:01> - General Info Date of Service: 02/17/19 Admission Dx/Problem (Free Text): Patient seen at bedside: Endorsing shaking sensation in his legs, mild dizziness , diarrhea , reduced appetite. Denies any overt pain however does complain of some mild swelling in his right knee. Does endorse having a rehabilitation for his alcohol set up on Tuesday in [place]. Patient denies any other concerns or complaints at this time. - Review of Systems General: Reports: Malaise. Denies: Fever, Weakness HEENT: Reports: No Symptoms Pulmonary: Denies: Shortness of Breath, Cough Cardiovascular: Denies: Chest Pain, Palpitations Gastrointestinal: Reports: Decreased Appetite, Diarrhea, Nausea. Denies: Abdominal Pain, Constipation, Vomiting Genitourinary: Reports: No Symptoms Musculoskeletal: Reports: No Symptoms Neurological: Reports: Dizziness, Headache Psychiatric: Reports: Anxiety. Denies: Confusion, Agitation - Patient Data Vitals - Most Recent: Last Vital Signs Temp 98.1 F 02/17/19 07:33 Pulse 85 02/17/19 07:33 Resp 20 02/17/19 07:33 BP 146/94 H 02/17/19 07:33 Pulse Ox 97 02/17/19 07:33 Weight - Most Recent: 100.108 kg I&O - Last 24 Hours: Intake & Output 02/16/19 02/17/19 02/17/19 22:59 06:59 14:59 Intake Total 600 2731 Output Total 1025 Balance 600 1706 Lab Results Last 24 Hours: Laboratory Results - last 24 hr 02/16/19 02/17/19 02/17/19 Range/Units 10:00 05:35 05:35 WBC 6.26 (4.0-11.0) K/uL RBC 4.89 (4.50-5.90) M/uL Hgb 14.8 (13.0-17.0) g/dL Hct 42.3 (38.0-50.0) % MCV 86.5 (80.0-98.0) fL MCH 30.3 (27.0-32.0) pg MCHC 35.0 (31.0-37.0) g/dL RDW Std Deviation 40.1 (28.0-62.0) fl RDW Coeff of Enrrique 13 (11.0-15.0) % Plt Count 234 (150-400) K/uL MPV 9.70 (7.40-12.00) fL Neut % (Auto) 76.4 (48.0-80.0) % Lymph % (Auto) 17.6 (16.0-40.0) % [place] % (Auto) 4.0 (0.0-15.0) % Eos % (Auto) 1.0 (0.0-7.0) % Baso % (Auto) 1.0 (0.0-1.5) % Neut # (Auto) 4.8 (1.4-5.7) K/uL Lymph # (Auto) 1.1 (0.6-2.4) K/uL [place] # (Auto) 0.3 (0.0-0.8) K/uL Eos # (Auto) 0.1 (0.0-0.7) K/uL Baso # (Auto) 0.1 (0.0-0.1) K/uL Nucleated RBC % 0.0 /100WBC Nucleated RBCs # 0 K/uL Sodium 140 (136-148) mmol/L Potassium 3.8 (3.5-5.1) mmol/L Chloride 106 (98-107) mmol/L Carbon Dioxide 25.0 (21.0-32.0) mmol/L BUN 6 L (7.0-18.0) mg/dL Creatinine 0.7 L (0.8-1.3) mg/dL Est Cr Clr Drug Dosing 135.45 mL/min Estimated GFR (MDRD) > 60.0 ml/min Glucose 93 (74-106) mg/dL Calcium 8.8 (8.5-10.1) mg/dL Magnesium 2.0 (1.8-2.4) mg/dL Total Bilirubin 2.4 H (0.2-1.0) mg/dL AST 56 H (15-37) IU/L ALT 48 (14-63) IU/L Alkaline Phosphatase 61 (46-116) U/L Total Protein 6.6 (6.4-8.2) g/dL Albumin 3.3 L (3.4-5.0) g/dL Globulin 3.3 (2.6-4.0) g/dL Albumin/Globulin Ratio 1.0 (0.9-1.6) Acetaminophen <2.0 ug/mL Iftikhar Results Last 24 Hours: Microbiology 02/16/19 14:25 Campylobacter Antigen Assay - Final Stool / Feces NEGATIVE CAMPYLOBACTER AG REFERENCE RANGE: NEGATIVE Shiga Toxin I - Final NEGATIVE FOR SHIGA TOXIN 1 REFERENCE RANGE: NEGATIVE Shiga Toxin II - Final NEGATIVE FOR SHIGA TOXIN 2 REFERENCE RANGE: NEGATIVE 02/16/19 14:25 Clostridium difficile Toxin A & B - Final Stool / Feces Negative for C.Diff Toxin/AG REFERENCE RANGE: NEGATIVE Med Orders - Current: Current Medications Acetaminophen (Tylenol) 650 mg PO Q4H PRN PRN Reason: Pain Last Admin: 02/16/19 20:46 Dose: 650 mg Chlordiazepoxide HCl (Librium) 5 mg PO TID [facility] Last Admin: 02/17/19 06:45 Dose: 5 mg Folic Acid (Folic Acid) 1 mg PO BEDTIME [facility] Last Admin: 02/16/19 20:46 Dose: 1 mg Sodium Chloride (Normal Saline) 1,000 mls @ 125 mls/hr IV Q8H [facility] Last Admin: 02/17/19 04:37 Dose: 125 mls/hr Lorazepam (Ativan) 0 mg PO Q4H PRN; Protocol PRN Reason: CIWAA Last Admin: 02/16/19 17:18 Dose: 0.5 mg Lorazepam (Ativan) 0 mg IV Q4H PRN; Protocol PRN Reason: CIWAA Last Admin: 02/17/19 08:07 Dose: 1 mg Ondansetron HCl (Zofran) 4 mg IVPUSH Q4H PRN PRN Reason: Nausea Last Admin: 02/16/19 20:46 Dose: 4 mg Thiamine HCl (Vitamin B-1) 100 mg PO BEDTIME [facility] Last Admin: 02/16/19 20:46 Dose: 100 mg Discontinued Medications Multivitamins/Minerals 10 ml/Thiamine HCl 100 mg/ Folic Acid 1 mg/ Sodium Chloride 1,011.2 mls @ 999 mls/hr IV ONETIME ONE Stop: 02/16/19 10:44 Last Admin: 02/16/19 10:05 Dose: 999 mls/hr Sodium Chloride (Normal Saline) 1,000 mls @ 999 mls/hr IV .Bolus ONE Stop: 02/16/19 12:01 Last Admin: 02/16/19 11:09 Dose: 999 mls/hr Magnesium Sulfate 4 gm/ Premix 100 mls @ 50 mls/hr IV ONETIME ONE Stop: 02/16/19 13:47 Last Admin: 02/16/19 12:25 Dose: Not Given Magnesium Sulfate 2 gm/ Premix 50 mls @ 50 mls/hr IV ONETIME ONE Stop: 02/16/19 13:05 Last Admin: 02/16/19 12:24 Dose: 50 mls/hr Lorazepam (Ativan) 1 mg IVPUSH ONETIME ONE Stop: 02/16/19 09:51 Last Admin: 02/16/19 10:05 Dose: 1 mg Lorazepam (Ativan) 1 mg IVPUSH ONETIME ONE Stop: 02/16/19 10:50 Last Admin: 02/16/19 10:58 Dose: 1 mg Lorazepam (Ativan) 0 mg IV Q2H PRN; Protocol PRN Reason: CIWAA Last Admin: 02/16/19 12:20 Dose: 2 mg - Exam General: Alert, Oriented, Cooperative HEENT: EOMI, Mucous Membr. Moist/[place] Neck: Supple Lungs: Clear to Auscultation, Normal Respiratory Effort Cardiovascular: Regular Rate, Regular Rhythm GI/Abdominal Exam: Soft, Non-Tender, No Mass Back Exam: No: CVA Tenderness (L), CVA Tenderness (R) Extremities: Normal Range of Motion Skin: Warm, Intact Psy/Mental Status: Alert, Withdrawal Symptoms - Problem List Review Problem List Initiated/Reviewed/Updated: Yes - Plan Plan:: This 33 year old male admitted with alcohol withdrawal, N/V and diarrhea 1. Alcohol withdrawal: CIWAA protocol with Ativan PRN. COntinue Librium as well. Continue Thiamine and folic acid supplementation. Latest CIWAA:11 US of liver in December, revealed fatty infiltration. Will obtain acetaminophen level and hepatitis panel. He would like outpatient treatment. Will give Human services resources for this. States he has a a rehab appointment set-up in [place] tomorrow. 2. N/V Diarrhea: Keep IVFs for now. Monitor BMP and electrolytes. Stool studies negative. Zofran PRN for nausea. FL diet for now until nausea has improved. No abdominal pain at all. VTE prophylaxis: SCDs and ambulation <Ayan Espinoza - Last Filed: 02/17/19 12:51> - General Info Admission Dx/Problem (Free Text): I have seen and examined the patient independently of medical office rep, Dr. Randi MD. I have reviewed and agree with the plan of care as outlined for this patient by him. I have discussed the case with him. Please see orders. The patient does have a high CWIAA score and will be kept in hospitalization. - Patient Data Vitals - Most Recent: Last Vital Signs Temp 37.1 C 02/17/19 11:00 Pulse 121 H 02/17/19 11:00 Resp 18 02/17/19 11:00 BP 148/94 H 02/17/19 11:00 Pulse Ox 96 02/17/19 12:00 I&O - Last 24 Hours: Intake & Output 02/16/19 02/17/19 02/17/19 22:59 06:59 14:59 Intake Total 600 2731 Output Total 1025 Balance 600 1706 Lab Results Last 24 Hours: Laboratory Results - last 24 hr 02/17/19 02/17/19 Range/Units 05:35 05:35 WBC 6.26 (4.0-11.0) K/uL RBC 4.89 (4.50-5.90) M/uL Hgb 14.8 (13.0-17.0) g/dL Hct 42.3 (38.0-50.0) % MCV 86.5 (80.0-98.0) fL MCH 30.3 (27.0-32.0) pg MCHC 35.0 (31.0-37.0) g/dL RDW Std Deviation 40.1 (28.0-62.0) fl RDW Coeff of Enrrique 13 (11.0-15.0) % Plt Count 234 (150-400) K/uL MPV 9.70 (7.40-12.00) fL Neut % (Auto) 76.4 (48.0-80.0) % Lymph % (Auto) 17.6 (16.0-40.0) % [place] % (Auto) 4.0 (0.0-15.0) % Eos % (Auto) 1.0 (0.0-7.0) % Baso % (Auto) 1.0 (0.0-1.5) % Neut # (Auto) 4.8 (1.4-5.7) K/uL Lymph # (Auto) 1.1 (0.6-2.4) K/uL [place] # (Auto) 0.3 (0.0-0.8) K/uL Eos # (Auto) 0.1 (0.0-0.7) K/uL Baso # (Auto) 0.1 (0.0-0.1) K/uL Nucleated RBC % 0.0 /100WBC Nucleated RBCs # 0 K/uL Sodium 140 (136-148) mmol/L Potassium 3.8 (3.5-5.1) mmol/L Chloride 106 (98-107) mmol/L Carbon Dioxide 25.0 (21.0-32.0) mmol/L BUN 6 L (7.0-18.0) mg/dL Creatinine 0.7 L (0.8-1.3) mg/dL Est Cr Clr Drug Dosing 135.45 mL/min Estimated GFR (MDRD) > 60.0 ml/min Glucose 93 (74-106) mg/dL Calcium 8.8 (8.5-10.1) mg/dL Magnesium 2.0 (1.8-2.4) mg/dL Total Bilirubin 2.4 H (0.2-1.0) mg/dL AST 56 H (15-37) IU/L ALT 48 (14-63) IU/L Alkaline Phosphatase 61 (46-116) U/L Total Protein 6.6 (6.4-8.2) g/dL Albumin 3.3 L (3.4-5.0) g/dL Globulin 3.3 (2.6-4.0) g/dL Albumin/Globulin Ratio 1.0 (0.9-1.6) Iftikhar Results Last 24 Hours: Microbiology 02/16/19 14:25 Campylobacter Antigen Assay - Final Stool / Feces NEGATIVE CAMPYLOBACTER AG REFERENCE RANGE: NEGATIVE Shiga Toxin I - Final NEGATIVE FOR SHIGA TOXIN 1 REFERENCE RANGE: NEGATIVE Shiga Toxin II - Final NEGATIVE FOR SHIGA TOXIN 2 REFERENCE RANGE: NEGATIVE 02/16/19 14:25 Clostridium difficile Toxin A & B - Final Stool / Feces Negative for C.Diff Toxin/AG REFERENCE RANGE: NEGATIVE Med Orders - Current: Current Medications Acetaminophen (Tylenol) 650 mg PO Q4H PRN PRN Reason: Pain Last Admin: 02/16/19 20:46 Dose: 650 mg Chlordiazepoxide HCl (Librium) 5 mg PO TID [facility] Last Admin: 02/17/19 06:45 Dose: 5 mg Folic Acid (Folic Acid) 1 mg PO BEDTIME [facility] Last Admin: 02/16/19 20:46 Dose: 1 mg Sodium Chloride (Normal Saline) 1,000 mls @ 125 mls/hr IV Q8H [facility] Last Admin: 02/17/19 12:08 Dose: 125 mls/hr Lorazepam (Ativan) 0 mg PO Q4H PRN; Protocol PRN Reason: CIWAA Last Admin: 02/16/19 17:18 Dose: 0.5 mg Lorazepam (Ativan) 0 mg IV Q4H PRN; Protocol PRN Reason: CIWAA Last Admin: 02/17/19 12:06 Dose: 1 mg Ondansetron HCl (Zofran) 4 mg IVPUSH Q4H PRN PRN Reason: Nausea Last Admin: 02/16/19 20:46 Dose: 4 mg Thiamine HCl (Vitamin B-1) 100 mg PO BEDTIME [facility] Last Admin: 02/16/19 20:46 Dose: 100 mg Discontinued Medications Multivitamins/Minerals 10 ml/Thiamine HCl 100 mg/ Folic Acid 1 mg/ Sodium Chloride 1,011.2 mls @ 999 mls/hr IV ONETIME ONE Stop: 02/16/19 10:44 Last Admin: 02/16/19 10:05 Dose: 999 mls/hr Sodium Chloride (Normal Saline) 1,000 mls @ 999 mls/hr IV .Bolus ONE Stop: 02/16/19 12:01 Last Admin: 02/16/19 11:09 Dose: 999 mls/hr Magnesium Sulfate 4 gm/ Premix 100 mls @ 50 mls/hr IV ONETIME ONE Stop: 02/16/19 13:47 Last Admin: 02/16/19 12:25 Dose: Not Given Magnesium Sulfate 2 gm/ Premix 50 mls @ 50 mls/hr IV ONETIME ONE Stop: 02/16/19 13:05 Last Admin: 02/16/19 12:24 Dose: 50 mls/hr Lorazepam (Ativan) 1 mg IVPUSH ONETIME ONE Stop: 02/16/19 09:51 Last Admin: 02/16/19 10:05 Dose: 1 mg Lorazepam (Ativan) 1 mg IVPUSH ONETIME ONE Stop: 02/16/19 10:50 Last Admin: 02/16/19 10:58 Dose: 1 mg Lorazepam (Ativan) 0 mg IV Q2H PRN; Protocol PRN Reason: CIWAA Last Admin: 02/16/19 12:20 Dose: 2 mg - My Orders Last 24 Hours: My Active Orders 02/16/19 22:00 chlordiazePOXIDE [Librium] 5 mg PO TID
[2019-02-17] MEDS: Acetaminophen 325 MG Tab PO PRN (13:56)
[2019-02-17] MEDS: Thiamine 100 MG Tab PO SCH (21:18)
[2019-02-17] MEDS: Folic Acid 1 MG Tab PO SCH (21:18)
[2019-02-18] MEDS: Sodium Chloride 0.9% 1,000 ML IV SCH (04:24)
[2019-02-18 06:09] LABS: BLOOD UREA NITROGEN,BUN 6 mg/dL (7.0-18.0); CARBON DIOXIDE,CO2 25.1 mmol/L (21.0-32.0); CHLORIDE,CL 107 mmol/L (98-107); GLUCOSE RANDOM 93 mg/dL (74-106); POTASSIUM,K 3.9 mmol/L (3.5-5.1); SODIUM,NA 141 mmol/L (136-148)
[2019-02-18 08:47] VITALS: BP 142/91; PULSE 56
--- NOTE | 2019-02-18 10:38 | PCM.DCSUM1 ---
<Katlyn Cotton - Last Filed: 02/18/19 14:28> Discharge Summary - Hospital Course Free Text/Narrative:: Admission Date: 02/16/19 Discharge Date: 02/18/19 Admission Diagnosis: 1. Alcohol withdrawal 2. Nausea, vomiting, and diarrhea 3. Hypomagnesemia Discharge Diagnosis: 1. Alcohol withdrawal 2. Nausea, vomiting, and diarrhea- resolved 3. Hypomagnesemia- resolved Procedures: None Consults: None Hospital Course: The patient is a 33-year-old male with past history of alcohol abuse who presented to the emergency room with concerns of alcohol withdrawal with nausea, vomiting and diarrhea. Reports past history of seizure with withdrawal. In the ER workup showed a CBC within normal limits, a slightly low magnesium, and mildly elevated AST. His alcohol level was 135. UDS was negative. In the ED, he received Ativan and normal saline. He was admitted to the medical surgical floor for observation. For alcohol withdrawal, he was placed on CIWA protocol with Ativan as well as Librium. He was continued on thiamine and folic acid while admitted and IV fluids. His nausea, vomiting, diarrhea resolved. He did have stool studies that were negative for an infectious cause. Hepatitis panel was ordered and pending at time of discharge. His magnesium was replaced and resolved. By day of discharge, his CIWA scores were 2s and he was requesting discharge as he needed to catch a flight to [place] for his daughter's upcoming surgery. Disposition: Home Discharge Condition: vitals stable, tolerating oral diet, ambulating without difficulty, symptom improvement Discharge Instructions: regular diet as tolerated, activity as tolerated, take medications as prescribed. No alcohol. Symptoms to report to physician include fever/chills, chest pain, shortness of breath, abdominal pain, erythema, drainage/discharge, signs of withdrawal such as tremors or seizures, or not improving as expected. Discharge Medications: Ibuprofen [Advil] 1 - 2 tab PO Q8H PRN Calcium Carb/D3/Magnesium/Zinc [Tito Mag Zinc + D3] 1 each PO DAILY Fish Oil/[place]-3 Fatty Acids [Fish Oil 1,000 MG] 1 each PO DAILY Multivitamin [Multi-Vitamin Daily] 1 tab PO DAILY Folic Acid 1 mg PO BEDTIME LORazepam [Ativan] 1 mg PO Q8HR PRN Thiamine [Vitamin B-1] 100 mg PO BEDTIME Follow-up: PCP- Dr. Bryan on 02/22/19 - Discharge Data Discharge Date: 02/18/19 Discharge Disposition: Home, Self-Care 01 Condition: Fair - Referral to Home Health Primary Care Physician: PCP Unknown - Patient Instructions Diet: Usual Diet as Tolerated, No Alcoholic Beverages Activity: As Tolerated Showering/Bathing: May Shower Notify Provider of: Fever, Increased Pain, Swelling and Redness, Drainage, Nausea and/or Vomiting Other/Special Instructions: Additional symptoms include chest pain, shortness of breath, abodminal pain, signs of withdrawal (shaky hands, seizures) - Discharge Plan *PRESCRIPTION DRUG MONITORING PROGRAM REVIEWED*: Not Applicable *COPY OF PRESCRIPTION DRUG MONITORING REPORT IN PATIENT CATRACHO: Not Applicable Prescriptions/Med Rec: LORazepam [Ativan] 1 mg PO Q8HR PRN 2 Days #6 tablet PRN Reason: Withdrawal Symptoms Folic Acid 1 mg PO BEDTIME 30 Days #30 tablet Thiamine [Vitamin B-1] 100 mg PO BEDTIME 30 Days #30 tablet Home Medications: Home Meds Ibuprofen [Advil] 1 - 2 tab PO Q8H PRN 12/19/18 [History] Calcium Carb/D3/Magnesium/Zinc [Tito Mag Zinc + D3] 1 each PO DAILY 02/16/19 [ History] Fish Oil/[place]-3 Fatty Acids [Fish Oil 1,000 MG] 1 each PO DAILY 02/16/19 [ History] Multivitamin [Multi-Vitamin Daily] 1 tab PO DAILY 02/16/19 [History] Folic Acid 1 mg PO BEDTIME 30 Days #30 tablet 02/18/19 [Rx] LORazepam [Ativan] 1 mg PO Q8HR PRN 2 Days #6 tablet 02/18/19 [Rx] Thiamine [Vitamin B-1] 100 mg PO BEDTIME 30 Days #30 tablet 02/18/19 [Rx] Patient Handouts: Nausea, Adult, Alcohol Withdrawal Syndrome, Thiamine, Vitamin B1 tablets, Lorazepam tablets, Folic Acid, Vitamin B9 tablets Referrals: Nicole Bryan MD [Resident] - 02/22/19 2:00 pm ([facility] [address] [place] [address] ) - Discharge Summary/Plan Comment DC Time >30 min.: No - Patient Data Vitals - Most Recent: Last Vital Signs Temp 96.9 F 02/18/19 08:00 Pulse 56 L 02/18/19 08:00 Resp 16 02/18/19 08:00 BP 142/91 H 02/18/19 08:00 Pulse Ox 98 02/18/19 08:00 Weight - Most Recent: 100.108 kg I&O - Last 24 hours: Intake & Output 02/17/19 02/18/19 02/18/19 22:59 06:59 14:59 Intake Total 3516 3668 Output Total 8036 781 Balance -2226 3676 Lab Results - Last 24 hrs: Laboratory Results - last 24 hr 02/16/19 02/18/19 02/18/19 Range/Units 10:00 05:40 05:40 WBC 4.47 (4.0-11.0) K/uL RBC 5.01 (4.50-5.90) M/uL Hgb 14.8 (13.0-17.0) g/dL Hct 43.2 (38.0-50.0) % MCV 86.2 (80.0-98.0) fL MCH 29.5 (27.0-32.0) pg MCHC 34.3 (31.0-37.0) g/dL RDW Std Deviation 39.7 (28.0-62.0) fl RDW Coeff of Enrrique 13 (11.0-15.0) % Plt Count 219 (150-400) K/uL MPV 9.70 (7.40-12.00) fL Neut % (Auto) 62.4 (48.0-80.0) % Lymph % (Auto) 27.1 (16.0-40.0) % [place] % (Auto) 6.7 (0.0-15.0) % Eos % (Auto) 2.7 (0.0-7.0) % Baso % (Auto) 1.1 (0.0-1.5) % Neut # (Auto) 2.8 (1.4-5.7) K/uL Lymph # (Auto) 1.2 (0.6-2.4) K/uL [place] # (Auto) 0.3 (0.0-0.8) K/uL Eos # (Auto) 0.1 (0.0-0.7) K/uL Baso # (Auto) 0.1 (0.0-0.1) K/uL Nucleated RBC % 0.0 /100WBC Nucleated RBCs # 0 K/uL Sodium 141 (136-148) mmol/L Potassium 3.9 (3.5-5.1) mmol/L Chloride 107 (98-107) mmol/L Carbon Dioxide 25.1 (21.0-32.0) mmol/L BUN 6 L (7.0-18.0) mg/dL Creatinine 0.7 L (0.8-1.3) mg/dL Est Cr Clr Drug Dosing 135.45 mL/min Estimated GFR (MDRD) > 60.0 ml/min Glucose 93 (74-106) mg/dL Calcium 9.0 (8.5-10.1) mg/dL Hepatitis A IgM Ab Negative (Negative) Hep Bs Antigen Negative (Negative) Hep B Core IgM Ab Negative (Negative) Hepatitis C Antibody <0.1 (0.0-0.9) s/co ratio ESTEE Results - Last 24 hrs: Microbiology 02/16/19 14:25 Stool Culture - Final Stool / Feces NO SALMONELLA, SHIGELLA,OR E.COLI O157 ISOLATED Campylobacter Antigen Assay - Final NEGATIVE CAMPYLOBACTER AG REFERENCE RANGE: NEGATIVE Shiga Toxin I - Final NEGATIVE FOR SHIGA TOXIN 1 REFERENCE RANGE: NEGATIVE Shiga Toxin II - Final NEGATIVE FOR SHIGA TOXIN 2 REFERENCE RANGE: NEGATIVE Med Orders - Current: Current Medications Acetaminophen (Tylenol) 650 mg PO Q4H PRN PRN Reason: Pain Last Admin: 02/17/19 13:56 Dose: 650 mg Chlordiazepoxide HCl (Librium) 5 mg PO TID [facility] Last Admin: 02/18/19 05:04 Dose: 5 mg Folic Acid (Folic Acid) 1 mg PO BEDTIME [facility] Last Admin: 02/17/19 21:18 Dose: 1 mg Sodium Chloride (Normal Saline) 1,000 mls @ 125 mls/hr IV Q8H [facility] Last Admin: 02/18/19 04:24 Dose: 125 mls/hr Lorazepam (Ativan) 0 mg PO Q4H PRN; Protocol PRN Reason: CIWAA Last Admin: 02/16/19 17:18 Dose: 0.5 mg Lorazepam (Ativan) 0 mg IV Q4H PRN; Protocol PRN Reason: CIWAA Last Admin: 02/17/19 12:06 Dose: 1 mg Ondansetron HCl (Zofran) 4 mg IVPUSH Q4H PRN PRN Reason: Nausea Last Admin: 02/16/19 20:46 Dose: 4 mg Thiamine HCl (Vitamin B-1) 100 mg PO BEDTIME [facility] Last Admin: 02/17/19 21:18 Dose: 100 mg Discontinued Medications Multivitamins/Minerals 10 ml/Thiamine HCl 100 mg/ Folic Acid 1 mg/ Sodium Chloride 1,011.2 mls @ 999 mls/hr IV ONETIME ONE Stop: 02/16/19 10:44 Last Admin: 02/16/19 10:05 Dose: 999 mls/hr Sodium Chloride (Normal Saline) 1,000 mls @ 999 mls/hr IV .Bolus ONE Stop: 02/16/19 12:01 Last Admin: 02/16/19 11:09 Dose: 999 mls/hr Magnesium Sulfate 4 gm/ Premix 100 mls @ 50 mls/hr IV ONETIME ONE Stop: 02/16/19 13:47 Last Admin: 02/16/19 12:25 Dose: Not Given Magnesium Sulfate 2 gm/ Premix 50 mls @ 50 mls/hr IV ONETIME ONE Stop: 02/16/19 13:05 Last Admin: 02/16/19 12:24 Dose: 50 mls/hr Lorazepam (Ativan) 1 mg IVPUSH ONETIME ONE Stop: 02/16/19 09:51 Last Admin: 02/16/19 10:05 Dose: 1 mg Lorazepam (Ativan) 1 mg IVPUSH ONETIME ONE Stop: 02/16/19 10:50 Last Admin: 02/16/19 10:58 Dose: 1 mg Lorazepam (Ativan) 0 mg IV Q2H PRN; Protocol PRN Reason: CIWAA Last Admin: 02/16/19 12:20 Dose: 2 mg *Q Meaningful Use (DIS) - VTE *Q VTE Pharmacological Contraindications *Q: Risk of Bleeding <Nain Kelly - Last Filed: 02/18/19 17:32> Discharge Summary - Referral to Home Health Primary Care Physician: PCP Unknown - Patient Data Vitals - Most Recent: Last Vital Signs Temp 36.1 C 02/18/19 08:00 Pulse 56 L 02/18/19 08:00 Resp 16 02/18/19 08:00 BP 142/91 H 02/18/19 08:00 Pulse Ox 98 02/18/19 08:00 I&O - Last 24 hours: Intake & Output 02/18/19 02/18/19 02/18/19 06:59 14:59 22:59 Intake Total 2708 1477 Output Total 061 500 Balance 5794 067 Lab Results - Last 24 hrs: Laboratory Results - last 24 hr 02/16/19 02/18/19 02/18/19 Range/Units 10:00 05:40 05:40 WBC 4.47 (4.0-11.0) K/uL RBC 5.01 (4.50-5.90) M/uL Hgb 14.8 (13.0-17.0) g/dL Hct 43.2 (38.0-50.0) % MCV 86.2 (80.0-98.0) fL MCH 29.5 (27.0-32.0) pg MCHC 34.3 (31.0-37.0) g/dL RDW Std Deviation 39.7 (28.0-62.0) fl RDW Coeff of Enrrique 13 (11.0-15.0) % Plt Count 219 (150-400) K/uL MPV 9.70 (7.40-12.00) fL Neut % (Auto) 62.4 (48.0-80.0) % Lymph % (Auto) 27.1 (16.0-40.0) % [place] % (Auto) 6.7 (0.0-15.0) % Eos % (Auto) 2.7 (0.0-7.0) % Baso % (Auto) 1.1 (0.0-1.5) % Neut # (Auto) 2.8 (1.4-5.7) K/uL Lymph # (Auto) 1.2 (0.6-2.4) K/uL [place] # (Auto) 0.3 (0.0-0.8) K/uL Eos # (Auto) 0.1 (0.0-0.7) K/uL Baso # (Auto) 0.1 (0.0-0.1) K/uL Nucleated RBC % 0.0 /100WBC Nucleated RBCs # 0 K/uL Sodium 141 (136-148) mmol/L Potassium 3.9 (3.5-5.1) mmol/L Chloride 107 (98-107) mmol/L Carbon Dioxide 25.1 (21.0-32.0) mmol/L BUN 6 L (7.0-18.0) mg/dL Creatinine 0.7 L (0.8-1.3) mg/dL Est Cr Clr Drug Dosing 135.45 mL/min Estimated GFR (MDRD) > 60.0 ml/min Glucose 93 (74-106) mg/dL Calcium 9.0 (8.5-10.1) mg/dL Hepatitis A IgM Ab Negative (Negative) Hep Bs Antigen Negative (Negative) Hep B Core IgM Ab Negative (Negative) Hepatitis C Antibody <0.1 (0.0-0.9) s/co ratio ESTEE Results - Last 24 hrs: Microbiology 02/16/19 14:25 Stool Culture - Final Stool / Feces NO SALMONELLA, SHIGELLA,OR E.COLI O157 ISOLATED Campylobacter Antigen Assay - Final NEGATIVE CAMPYLOBACTER AG REFERENCE RANGE: NEGATIVE Shiga Toxin I - Final NEGATIVE FOR SHIGA TOXIN 1 REFERENCE RANGE: NEGATIVE Shiga Toxin II - Final NEGATIVE FOR SHIGA TOXIN 2 REFERENCE RANGE: NEGATIVE Med Orders - Current: Current Medications Discontinued Medications Acetaminophen (Tylenol) 650 mg PO Q4H PRN PRN Reason: Pain Last Admin: 02/17/19 13:56 Dose: 650 mg Chlordiazepoxide HCl (Librium) 5 mg PO TID [facility] Last Admin: 02/18/19 05:04 Dose: 5 mg Folic Acid (Folic Acid) 1 mg PO BEDTIME [facility] Last Admin: 02/17/19 21:18 Dose: 1 mg Multivitamins/Minerals 10 ml/Thiamine HCl 100 mg/ Folic Acid 1 mg/ Sodium Chloride 1,011.2 mls @ 999 mls/hr IV ONETIME ONE Stop: 02/16/19 10:44 Last Admin: 02/16/19 10:05 Dose: 999 mls/hr Sodium Chloride (Normal Saline) 1,000 mls @ 999 mls/hr IV .Bolus ONE Stop: 02/16/19 12:01 Last Admin: 02/16/19 11:09 Dose: 999 mls/hr Magnesium Sulfate 4 gm/ Premix 100 mls @ 50 mls/hr IV ONETIME ONE Stop: 02/16/19 13:47 Last Admin: 02/16/19 12:25 Dose: Not Given Sodium Chloride (Normal Saline) 1,000 mls @ 125 mls/hr IV Q8H [facility] Last Admin: 02/18/19 04:24 Dose: 125 mls/hr Magnesium Sulfate 2 gm/ Premix 50 mls @ 50 mls/hr IV ONETIME ONE Stop: 02/16/19 13:05 Last Admin: 02/16/19 12:24 Dose: 50 mls/hr Lorazepam (Ativan) 1 mg IVPUSH ONETIME ONE Stop: 02/16/19 09:51 Last Admin: 02/16/19 10:05 Dose: 1 mg Lorazepam (Ativan) 1 mg IVPUSH ONETIME ONE Stop: 02/16/19 10:50 Last Admin: 02/16/19 10:58 Dose: 1 mg Lorazepam (Ativan) 0 mg IV Q2H PRN; Protocol PRN Reason: CIWAA Last Admin: 02/16/19 12:20 Dose: 2 mg Lorazepam (Ativan) 0 mg PO Q4H PRN; Protocol PRN Reason: CIWAA Last Admin: 02/16/19 17:18 Dose: 0.5 mg Lorazepam (Ativan) 0 mg IV Q4H PRN; Protocol PRN Reason: CIWAA Last Admin: 02/17/19 12:06 Dose: 1 mg Ondansetron HCl (Zofran) 4 mg IVPUSH Q4H PRN PRN Reason: Nausea Last Admin: 02/16/19 20:46 Dose: 4 mg Thiamine HCl (Vitamin B-1) 100 mg PO BEDTIME [facility] Last Admin: 02/17/19 21:18 Dose: 100 mg - Free Text/Narrative Note: I have seen and evaluated the patient with the resident. I have discussed findings and treatment plan with the resident. I agree with the assessment and plan outlined in the following note.
== END 2019-02-18 11:30 | disposition home or self-care (01) ==
LOC: MW.ED 09:36 → MW.MS 11:44
PROVIDERS: ADMIT Internal Medicine; ATTEND Internal Medicine
DX: F10.230 Alcohol dependence with withdrawal, uncomplicated (principal); F10.229 Alcohol dependence with intoxication, unspecified; E83.42 Hypomagnesemia; R19.7 Diarrhea, unspecified; I10 Essential (primary) hypertension; J45.909 Unspecified asthma, uncomplicated; Y90.6 Blood alcohol level of 120-199 mg/100 ml; Z87.891 Personal history of nicotine dependence; Z87.19 Personal history of other diseases of the digestive system
CPT/HCPCS: 36415; 80048; 80053; 80074; 80305; 80320; 80329; 83735; 85025; 87046; 87324; 87899; 93005; 96361; 96365; 96375; 96376; 99285; A9270; J2060; J2405; J3411; J3475; J7040; 96367; G0378; G0480

== ENCOUNTER 2019-03-20 11:00 | Emergency (ER) | payer OTHER ==
[2019-03-20] MEDS ORDERED: Ondansetron 4 MG/2 ML SDV IVPUSH ONE (11:25)
[2019-03-20] MEDS ORDERED: LORazepam 2 MG/ML SDV IVPUSH ONE ×2 (11:25→13:07)
[2019-03-20] MEDS ORDERED: Sodium Chloride 0.9% 1,000 ML IV ONE (11:25)
--- NOTE | 2019-03-20 12:06 | EDM.PDOC ---
ED HPI GENERAL MEDICAL PROBLEM - General Chief Complaint: General Stated Complaint: WEAKNESS Time Seen by Provider: 03/20/19 11:03 Source of Information: Reports: Patient - History of Present Illness INITIAL COMMENTS - FREE TEXT/NARRATIVE: Patient reports presents reporting vomiting, diarrhea, "withdrawal". The patient states that he has been drinking alcohol daily for 15 years. His usual pattern is to work all day and drink two "tall beers" every evening. 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 The patient states that he has Ativan at home but is scared to take it for fear of stopping breathing. EMS noted the bottle and stated that it was "almost full" very shaky. He states that he has a friend at work that had been ill. He also states he was intoxicated last evening and fell , striking the bridge of his nose on a carpeted step. No chest pain, abdominal pain, headache. The patient states he is from [place] and has no family here. His and 3 daughters in [place]. He states he lifted about a mile from the ER and took off walking this morning. He was picked up by a cement sprayer helper who called EMS. - Related Data Allergies Allergy/AdvReac Type Severity Reaction Status Date / Time No Known Allergies Allergy Verified 03/20/19 11:11 Home Meds: Home Meds LORazepam [Ativan] 1 mg PO ASDIRECTED PRN 03/20/19 [History] Ondansetron [Zofran ODT] 1 tab PO Q6H PRN #4 tab.dis 03/20/19 [Rx] Past Medical History - Past Health History Medical/Surgical History: Denies Medical/Surgical History HEENT History: Reports: None Cardiovascular History: Reports: Hypertension Other Cardiovascular History: not on medication Respiratory History: Reports: Asthma Gastrointestinal History: Reports: Diverticulosis Genitourinary History: Reports: None Musculoskeletal History: Reports: None Neurological History: Reports: None Psychiatric History: Reports: Anxiety, Other (See Below) Other Psychiatric History: ETOH abuse Endocrine/Metabolic History: Reports: Obesity/BMI 30+ Hematologic History: Reports: None Immunologic History: Reports: None Oncologic (Cancer) History: Reports: None Dermatologic History: Reports: None - Infectious Disease History Infectious Disease History: Reports: Chicken Pox - Past Surgical History Cardiovascular Surgical History: Reports: None Respiratory Surgical History: Reports: None GI Surgical History: Reports: Appendectomy, Other (See Below) Other GI Surgeries/Procedures: Repair of perforation from diverticulitis Male Surgical History: Reports: None Social & Family History - Family History Family Medical History: Noncontributory - Tobacco Use Smoking Status *Q: Never Smoker - Caffeine Use Caffeine Use: Reports: Coffee, Energy Drinks - Recreational Drug Use Recreational Drug Use: No ED ROS GENERAL - Review of Systems Review Of Systems: ROS reveals no pertinent complaints other than HPI. ED EXAM, GENERAL - Physical Exam Exam: See Below Exam Limited By: No Limitations General Appearance: Alert, Mild Distress (due to withdrawal) Nose: Normal Inspection Throat/Mouth: Normal Inspection Head: Atraumatic, Normocephalic Neck: Normal Inspection Respiratory/Chest: No Respiratory Distress, Lungs Clear, Normal Breath Sounds Cardiovascular: Normal Peripheral Pulses, Regular Rate, Rhythm, No Murmur Peripheral Pulses: 3+: Radial (L), Radial (R) GI/Abdominal: Non-Tender, No Distention, Abnormal Bowel Sounds (Hyperactive) Back Exam: Normal Inspection Extremities: Normal Inspection Neurological: Alert, Oriented, Other (Jittery) Psychiatric: Normal Affect, Anxious Lymphatic: No Adenopathy Course - Vital Signs Last Recorded V/S: Last Vital Signs Temp 35.6 C 03/20/19 11:08 Pulse 95 03/20/19 13:32 Resp 18 03/20/19 13:32 BP 125/80 03/20/19 13:32 Pulse Ox 97 03/20/19 13:32 - Orders/Labs/Meds Orders: Active Orders 24 hr Category Date Time Status CULTURE STOOL + CAMPY+SHIGATOX [RM] Stat Lab 03/20/19 11:26 Ordered Labs: Laboratory Tests 03/20/19 03/20/19 03/20/19 Range/Units 11:50 11:50 11:50 WBC 7.63 (4.0-11.0) K/uL RBC 5.53 (4.50-5.90) M/uL Hgb 16.6 (13.0-17.0) g/dL Hct 46.3 (38.0-50.0) % MCV 83.7 (80.0-98.0) fL MCH 30.0 (27.0-32.0) pg MCHC 35.9 (31.0-37.0) g/dL RDW Std Deviation 38.3 (28.0-62.0) fl RDW Coeff of Enrrique 13 (11.0-15.0) % Plt Count 253 (150-400) K/uL MPV 9.50 (7.40-12.00) fL Neut % (Auto) 80.6 H (48.0-80.0) % Lymph % (Auto) 13.8 L (16.0-40.0) % [place] % (Auto) 4.7 (0.0-15.0) % Eos % (Auto) 0.1 (0.0-7.0) % Baso % (Auto) 0.8 (0.0-1.5) % Neut # (Auto) 6.2 H (1.4-5.7) K/uL Lymph # (Auto) 1.1 (0.6-2.4) K/uL [place] # (Auto) 0.4 (0.0-0.8) K/uL Eos # (Auto) 0.0 (0.0-0.7) K/uL Baso # (Auto) 0.1 (0.0-0.1) K/uL Nucleated RBC % 0.0 /100WBC Nucleated RBCs # 0 K/uL INR 1.03 Sodium 136 (136-148) mmol/L Potassium 3.7 (3.5-5.1) mmol/L Chloride 98 (98-107) mmol/L Carbon Dioxide 25.2 (21.0-32.0) mmol/L BUN 5 L (7.0-18.0) mg/dL Creatinine 0.8 (0.8-1.3) mg/dL Est Cr Clr Drug Dosing 117.41 mL/min Estimated GFR (MDRD) > 60.0 ml/min Glucose 116 H (74-106) mg/dL Calcium 9.3 (8.5-10.1) mg/dL Total Bilirubin 1.9 H (0.2-1.0) mg/dL AST 73 H (15-37) IU/L ALT 58 (14-63) IU/L Alkaline Phosphatase 91 (46-116) U/L Total Protein 8.7 H (6.4-8.2) g/dL Albumin 4.1 (3.4-5.0) g/dL Globulin 4.6 H (2.6-4.0) g/dL Albumin/Globulin Ratio 0.9 (0.9-1.6) Amylase 56 (25-115) U/L Lipase 181 (73-393) U/L Meds: Medications Discontinued Medications Generic Name Dose Route Start Last Admin Trade Name Arielle PRN Reason Stop Dose Admin Sodium Chloride 1,000 mls @ 999 mls/hr 03/20/19 11:25 03/20/19 11:52 Normal Saline IV 03/20/19 12:25 999 mls/hr STAT ONE Administration Multivitamins/Minerals 10 ml/ 1,011.2 mls @ 999 mls/hr 03/20/19 13:07 13:30 Thiamine HCl 100 mg/ Folic IV 03/20/19 14:07 999 mls/hr Acid 1 mg/ Sodium Chloride ONETIME ONE Administration Lorazepam 0.5 mg 03/20/19 11:25 03/20/19 11:55 Ativan IVPUSH 03/20/19 11:26 0.5 mg ONETIME ONE Administration Lorazepam 0.5 mg 03/20/19 13:07 03/20/19 13:27 Ativan IVPUSH 03/20/19 13:08 0.5 mg ONETIME ONE Administration Ondansetron HCl 4 mg 03/20/19 11:25 03/20/19 11:53 Zofran IVPUSH 03/20/19 11:26 4 mg ONETIME ONE Administration - Re-Assessments/Exams Free Text/Narrative Re-Assessment/Exam: 03/20/19 14:26 Discussion with the patient. He is feeling much better no nausea vomiting or diarrhea while in the ER except one loose stool initially. Reassurance given that he could take his prescribed Ativan 1/2-1 tab every 8 hours as needed for jitters. He tells me today that he has "done with drinking". Departure - Departure Time of Disposition: 14:28 Disposition: Home, Self-Care 01 Condition: Good Clinical Impression: Gastroenteritis, Alcohol abuse - Discharge Information *PRESCRIPTION DRUG MONITORING PROGRAM REVIEWED*: Not Applicable *COPY OF PRESCRIPTION DRUG MONITORING REPORT IN PATIENT [place]: Not Applicable Forms: ED Department Discharge Additional Instructions: The following information is given to patients seen in the emergency department who are being discharged to home. This information is to outline your options for follow-up care. We provide all patients seen in our emergency department with a follow-up referral. The need for follow-up, as well as the timing and circumstances, are variable depending upon the specifics of your emergency department visit. If you don't have a primary care physician on staff, we will provide you with a referral. We always advise you to contact your personal physician following an emergency department visit to inform them of the circumstance of the visit and for follow-up with them and/or the need for any referrals to a consulting specialist. The emergency department will also refer you to a specialist when appropriate. This referral assures that you have the opportunity for follow-up care with a specialist. All of these measure are taken in an effort to provide you with optimal care, which includes your follow-up. Under all circumstances we always encourage you to contact your private physician who remains a resource for coordinating your care. When calling for follow-up care, please make the office aware that this follow-up is from your recent emergency room visit. If for any reason you are refused follow-up, please contact the [facility] Emergency Department at and asked to speak to the emergency department charge nurse. 1. Drink plenty of fluids including electrolyte solutions. 2. Do not drink alcohol 3. Zofran ODT 1 every 6-8 hours as needed for vomiting 4. If you get the jitters over the next 1-2 days please take your Ativan 1/2-1 tablet every 8 hours[address] No driving or operating machinery with that medication. 5. Do not drive or operate machinery today as you have been given an intravenous sedative. 6. Return promptly for vomiting or diarrhea and not keeping down oral fluids, fevers, abdominal pain or alcohol withdrawal symptoms not relieved by Ativan. - My Orders Last 24 Hours: My Active Orders 03/20/19 11:26 CULTURE STOOL + CAMPY+SHIGATOX [RM] Stat - Assessment/Plan Last 24 Hours: My Active Orders 03/20/19 11:26 CULTURE STOOL + CAMPY+SHIGATOX [RM] Stat
[2019-03-20 12:53] LABS: BLOOD UREA NITROGEN,BUN 5 mg/dL (7.0-18.0); CARBON DIOXIDE,CO2 25.2 mmol/L (21.0-32.0); CHLORIDE,CL 98 mmol/L (98-107); GLUCOSE RANDOM 116 mg/dL (74-106); LIPASE 181 U/L (73-393); POTASSIUM,K 3.7 mmol/L (3.5-5.1); SODIUM,NA 136 mmol/L (136-148)
[2019-03-20] MEDS ORDERED: MVI, Adult with Vitamin K 10 ML, Thiamine 100 MG, Folic Acid 1 MG in Sodium Chloride 0.... IV ONE ×4 (13:07)
[2019-03-20 15:02] VITALS: BP 111/57; PULSE 87
== END 2019-03-20 15:03 | disposition home or self-care (01) ==
LOC: MW.ED 11:00
DX: K52.9 Noninfective gastroenteritis and colitis, unspecified (principal); F10.10 Alcohol abuse, uncomplicated; Y90.9 Presence of alcohol in blood, level not specified; I10 Essential (primary) hypertension; E66.9 Obesity, unspecified; Z68.38 Body mass index [BMI] 38.0-38.9, adult; F41.9 Anxiety disorder, unspecified
CPT/HCPCS: 36415; 80053; 82150; 83630; 83690; 85025; 85610; 87046; 87899; 96361; 96365; 96375; 96376; 99285; J2060; J2405; J3411; J7040; 99284

== ENCOUNTER 2019-05-24 10:06 | Inpatient (IN) | payer OTHER ==
[2019-05-24] MEDS ORDERED: Sodium Chloride 0.9% 1,000 ML IV ONE (10:41)
[2019-05-24] MEDS ORDERED: Thiamine 100 MG in Sodium Chloride 0.9% 100 ML IV ONE (10:41)
[2019-05-24] MEDS ORDERED: chlordiazePOXIDE 25 MG Cap PO ONE (10:41)
[2019-05-24] MEDS ORDERED: LORazepam 2 MG/ML SDV IVPUSH ONE (10:41)
--- NOTE | 2019-05-24 11:12 | EDM.PDOCBH ---
ED [facility] GENERAL MEDICAL PROBLEM - General Chief Complaint: Drug or Alcohol Abuse Stated Complaint: TAMMIE VELAZQUEZS SICK Time Seen by Provider: 05/24/19 10:45 Source of Information: Reports: Patient History Limitations: Reports: No Limitations - History of Present Illness INITIAL COMMENTS - FREE TEXT/NARRATIVE: Patient is 34-year-old male history of alcohol abuse presenting with a chief complaint of alcohol withdrawal. Patient states he drinks about a pint of alcohol a day and has tried to stop on his own. Patient states he had his last drink last night around 7 PM. Patient reports not drinking today but did take 125 mg Librium that was prescribed to him previously about a month ago in [place]. Patient states he is motivated to quit drinking alcohol and is feeling like he is really withdrawing from his alcohol. Patient reports his symptoms as headache, nausea, tremors, anxiety, generalized paresthesias. Denies any drug use. In addition to that documented in the HPI above, the additional ROS was obtained : Constitutional: Denies fevers or chills Eyes: Denies vision changes ENMT: Denies sore throat CV: Denies chest pain Resp: Denies SOB GI: Denies vomiting or diarrhea : Denies painful urination MSK: Denies recent trauma Skin: Denies new rashes Neuro: Denies new numbness or tingling or weakness Endocrine: Denies unexpected weight loss Heme: Denies bleeding disorders I have reviewed the triage vital signs Const: Well nourished, well developed, appears stated age Eyes: PERRL, no conjunctival injection HENT: NCAT, Neck supple without meningismus CV: RRR, Warm, well-perfused extremities RESP: CTAB, Unlabored respiratory effort GI: soft, non-tender, non-distended, no masses MSK: No gross deformities appreciated Skin: Warm, dry. No rashes Neuro: Tremors noted bilateral upper extremities when arms are at his sides. Alert, fixed income analyst II-XII grossly intact. Sensation and motor function of extremities grossly intact. Psych: Anxious in appearance - Related Data Allergies Allergy/AdvReac Type Severity Reaction Status Date / Time No Known Allergies Allergy Verified 05/24/19 10:16 Home Meds: Home Meds Ondansetron [Zofran] 4 mg PO ASDIRECTED 05/24/19 [History] chlordiazePOXIDE [Librium] 25 mg PO ASDIRECTED 05/24/19 [History] Past Medical History - Past Health History Medical/Surgical History: Denies Medical/Surgical History HEENT History: Reports: None Cardiovascular History: Reports: Hypertension Other Cardiovascular History: not on medication Respiratory History: Reports: Asthma Gastrointestinal History: Reports: Diverticulosis Genitourinary History: Reports: None Musculoskeletal History: Reports: None Neurological History: Reports: None Psychiatric History: Reports: Anxiety, Other (See Below) Other Psychiatric History: ETOH abuse Endocrine/Metabolic History: Reports: Obesity/BMI 30+ Hematologic History: Reports: None Immunologic History: Reports: None Oncologic (Cancer) History: Reports: None Dermatologic History: Reports: None - Infectious Disease History Infectious Disease History: Reports: Chicken Pox - Past Surgical History Cardiovascular Surgical History: Reports: None Respiratory Surgical History: Reports: None GI Surgical History: Reports: Appendectomy, Other (See Below) Other GI Surgeries/Procedures: Repair of perforation from diverticulitis Male Surgical History: Reports: None Social & Family History - Family History Family Medical History: Noncontributory - Tobacco Use Smoking Status *Q: Never Smoker - Caffeine Use Caffeine Use: Reports: Coffee - Recreational Drug Use Recreational Drug Use: No ED ROS GENERAL - Review of Systems Review Of Systems: See Below ED EXAM, BEHAVIORAL HEALTH - Physical Exam Exam: See Below EKG INTERPRETATION EKG Date: 05/24/19 Time: 10:15 Rhythm: Other (Sinus tachycardia) Rate (Beats/Min): 116 [place]: Normal P-Wave: Present QRS: Normal QT: Prolonged Comparison: NA - No Prior EKG EKG Interpretation Comments: Abnormal EKG. Sinus tachycardia COURSE, BEHAVIORAL HEALTH COMP - Course Vital Signs: Last Vital Signs Temp 36.4 C 05/24/19 11:50 Pulse 95 05/24/19 11:50 Resp 20 05/24/19 10:17 BP 151/95 H 05/24/19 11:50 Pulse Ox 95 05/24/19 11:50 Orders, Labs, Meds: Active Orders 24 hr Category Date Time Status Admission Status [Patient Status] [ADT] Stat ADT 05/24/19 12:03 Active Laboratory Tests 05/24/19 05/24/19 05/24/19 Range/Units 10:57 10:57 10:57 WBC 5.61 (4.0-11.0) K/uL RBC 5.41 (4.50-5.90) M/uL Hgb 16.5 (13.0-17.0) g/dL Hct 45.6 (38.0-50.0) % MCV 84.3 (80.0-98.0) fL MCH 30.5 (27.0-32.0) pg MCHC 36.2 (31.0-37.0) g/dL RDW Std Deviation 38.9 (28.0-62.0) fl RDW Coeff of Enrrique 13 (11.0-15.0) % Plt Count 209 (150-400) K/uL MPV 10.10 (7.40-12.00) fL Neut % (Auto) 73.2 (48.0-80.0) % Lymph % (Auto) 23.0 (16.0-40.0) % [place] % (Auto) 2.5 (0.0-15.0) % Eos % (Auto) 0.2 (0.0-7.0) % Baso % (Auto) 1.1 (0.0-1.5) % Neut # (Auto) 4.1 (1.4-5.7) K/uL Lymph # (Auto) 1.3 (0.6-2.4) K/uL [place] # (Auto) 0.1 (0.0-0.8) K/uL Eos # (Auto) 0.0 (0.0-0.7) K/uL Baso # (Auto) 0.1 (0.0-0.1) K/uL Nucleated RBC % 0.0 /100WBC Nucleated RBCs # 0 K/uL Sodium 137 (136-148) mmol/L Potassium 3.5 (3.5-5.1) mmol/L Chloride 102 (98-107) mmol/L Carbon Dioxide 21.6 (21.0-32.0) mmol/L BUN 9 (7.0-18.0) mg/dL Creatinine 0.6 L (0.8-1.3) mg/dL Est Cr Clr Drug Dosing 150.90 mL/min Estimated GFR (MDRD) > 60.0 ml/min Glucose 94 (74-106) mg/dL Calcium 8.0 L (8.5-10.1) mg/dL Urine Opiates Screen NEGATIVE (NEGATIVE) Ur Oxycodone Screen NEGATIVE (NEGATIVE) Urine Methadone Screen NEGATIVE (NEGATIVE) Ur Barbiturates Screen NEGATIVE (NEGATIVE) Ur Phencyclidine Scrn NEGATIVE (NEGATIVE) Ur Amphetamine Screen NEGATIVE (NEGATIVE) U Methamphetamines Scrn NEGATIVE (NEGATIVE) U Benzodiazepines Scrn NEGATIVE (NEGATIVE) U Cocaine Metab Screen NEGATIVE (NEGATIVE) U Marijuana (THC) Screen NEGATIVE (NEGATIVE) Ethyl Alcohol 67 mg/dL Medications Discontinued Medications Generic Name Dose Route Start Last Admin Trade Name Freq PRN Reason Stop Dose Admin Chlordiazepoxide HCl 50 mg 05/24/19 10:41 05/24/19 11:09 Librium PO 05/24/19 10:42 50 mg ONETIME ONE Administration Sodium Chloride 1,000 mls @ 1,000 mls/hr 05/24/19 10:41 05/24/19 11:08 Normal Saline IV 05/24/19 11:40 1,000 mls/hr .Bolus ONE Administration Thiamine HCl 100 mg/ Sodium 101 mls @ 202 mls/hr 05/24/19 10:41 05/24/19 11: 29 Chloride IV 05/24/19 10:42 202 mls/hr ONETIME ONE Administration Lorazepam 2 mg 05/24/19 10:41 05/24/19 11:09 Ativan IVPUSH 05/24/19 10:42 2 mg ONETIME ONE Administration Departure - Departure Time of Disposition: 12:00 Disposition: Admitted As Inpatient 66 Condition: Fair Clinical Impression: Alcohol withdrawal Qualifiers: Complication of substance-induced condition: uncomplicated Qualified Code(s): F10.230 - Alcohol dependence with withdrawal, uncomplicated - Discharge Information Sepsis Event Note - Evaluation Sepsis Screening Result: No Definite Risk - Focused Exam Vital Signs: Vital Signs Temp Pulse Resp BP Pulse Ox 05/24/19 11:50 36.4 C 95 151/95 H 95 05/24/19 10:17 36.5 C 122 H 20 142/103 H 97 Date Exam was Performed: 05/24/19 Time Exam was Performed: 12:41 - My Orders Last 24 Hours: My Active Orders 05/24/19 12:03 Admission Status [Patient Status] [ADT] Stat - Assessment/Plan Last 24 Hours: My Active Orders 05/24/19 12:03 Admission Status [Patient Status] [ADT] Stat Assessment:: Patient is 34 for male presenting with alcohol withdrawal. At time of presentation, patient has a CIWA score of 22. Patient is not exhibiting evidence of delirium tremens at this time. Labs checked for electrolyte abnormalities and alcohol level. Electrodes are within normal limits. Alcohol level is 67. Urine drug screen is negative. Given patient's elevated CIWA score greater than 20 and require for increased amounts of benzodiazepine medications, this patient is recommended for inpatient admission for alcohol withdrawal. Patient given IV fluids and thiamine in addition to the Ativan and Librium. Patient will be admitted to the hospitalist service for further evaluation and management.
[2019-05-24 11:37] LABS: BLOOD UREA NITROGEN,BUN 9 mg/dL (7.0-18.0); CARBON DIOXIDE,CO2 21.6 mmol/L (21.0-32.0); CHLORIDE,CL 102 mmol/L (98-107); GLUCOSE RANDOM 94 mg/dL (74-106); POTASSIUM,K 3.5 mmol/L (3.5-5.1); SODIUM,NA 137 mmol/L (136-148)
[2019-05-24] MEDS ORDERED: Sodium Chloride 0.9% 10 ML Syringe FLUSH PRN (12:54)
[2019-05-24] MEDS ORDERED: Ondansetron 4 MG/2 ML SDV IVPUSH PRN (12:54)
[2019-05-24] MEDS ORDERED: Sodium Chloride 0.9% 2.5 ML Syringe FLUSH PRN (12:54)
--- NOTE | 2019-05-24 12:58 | PCM.HP.2 ---
H&P History of Present Illness - General Date of Service: 05/24/19 Admit Problem/Dx: Admission Diagnosis/Problem Admission Diagnosis/Problem Alcohol withdrawal syndrome without complication Source of Information: Patient History Limitations: Reports: No Limitations - History of Present Illness Initial Comments - Free Text/Narative: This 34 year old male with pmh of diverticulitis and alcohol abuse presented to the ED today with concerns of alcohol withdrawal. He reports feeling shaky and not well. reports his last drink was 7:30 [place] at the airport prior to coming to [place]. He works here and family is in [place]. He reports he drinks 1 pint of vodka daily. Reports wanting to quit drinking as it is causing issues in his life. He has been admitted here with similar story on a few other occasions. He is asking for inpatient rehabilitation. which we made him aware we do not have access to. he understands and wants to be detoxed. He is alert and oriented now. Previous alcohol withdrawals, he reports tremors, N/V and hallucinations, and "small seizures". He denies fevers chills or chest pain currently. Reports no shortness of breath. Reports some dryness to shins. Denies recreational drug use and no tobacco use. In the ED labwork WNL. ETOH 67. He was given Thiamine and folic acid along with Librium and Ativan. He will be admitted to ICU for alcohol withdrawal. - Related Data Allergies/Adverse Reactions: Allergies Allergy/AdvReac Type Severity Reaction Status Date / Time No Known Allergies Allergy Verified 05/24/19 12:58 Home Medications: Home Meds Ondansetron [Zofran] 4 mg PO Q8H PRN 05/24/19 [History] chlordiazePOXIDE [Librium] 25 mg PO QID PRN 05/24/19 [History] Past Medical History - Past Health History Medical/Surgical History: Denies Medical/Surgical History HEENT History: Reports: None Cardiovascular History: Reports: Hypertension Other Cardiovascular History: not on medication Respiratory History: Reports: Asthma Gastrointestinal History: Reports: Diverticulosis Genitourinary History: Reports: None Musculoskeletal History: Reports: None Neurological History: Reports: None Psychiatric History: Reports: Anxiety, Other (See Below) Other Psychiatric History: ETOH abuse Endocrine/Metabolic History: Reports: Obesity/BMI 30+ Hematologic History: Reports: None Immunologic History: Reports: None Oncologic (Cancer) History: Reports: None Dermatologic History: Reports: None - Infectious Disease History Infectious Disease History: Reports: Chicken Pox - Past Surgical History Cardiovascular Surgical History: Reports: None Respiratory Surgical History: Reports: None GI Surgical History: Reports: Appendectomy, Other (See Below) Other GI Surgeries/Procedures: Repair of perforation from diverticulitis Male Surgical History: Reports: None Social & Family History - Family History Family Medical History: Noncontributory - Tobacco Use Smoking Status *Q: Never Smoker - Caffeine Use Caffeine Use: Reports: Coffee - Alcohol Use Alcohol Use History: Yes Days Per Week of Alcohol Use: 7 Number of Drinks Per Day: 7 Total Drinks Per Week: 49 Alcohol Use Frequency: Daily - Recreational Drug Use Recreational Drug Use: No H&P Review of Systems - Review of Systems: Review Of Systems: See Below General: Reports: Weakness. Denies: Fever, Chills, Malaise Pulmonary: Reports: No Symptoms. Denies: Shortness of Breath Cardiovascular: Reports: No Symptoms. Denies: Chest Pain Gastrointestinal: Reports: Nausea Genitourinary: Reports: No Symptoms Musculoskeletal: Reports: No Symptoms Psychiatric: Reports: No Symptoms Neurological: Reports: Headache, Tremors Hematologic/Lymphatic: Reports: No Symptoms Immunologic: Reports: No Symptoms Exam - Exam Exam: See Below - Vital Signs Vital Signs: Last Vital Signs Temp 97.5 F 05/24/19 11:50 Pulse 95 05/24/19 11:50 Resp 20 05/24/19 10:17 BP 151/95 H 05/24/19 11:50 Pulse Ox 95 05/24/19 11:50 Weight: 108.862 kg - Exam General: Alert, Oriented, Cooperative HEENT: Conjunctiva Clear, Mucosa Moist & [place], Posterior Pharynx Clear Lungs: Clear to Auscultation, Normal Respiratory Effort Cardiovascular: Regular Rate, Regular Rhythm Extremities: Normal Inspection, Normal Range of Motion, Non-Tender, No Pedal Edema Neuro Extensive - Mental Status: Alert, Oriented x3, Normal Mood/Affect Neuro Extensive - Motor, Sensory, Reflexes: Tremor Psychiatric: Alert, Normal Affect, Normal Mood - Patient Data Lab Results Last 24 hrs: Laboratory Results - last 24 hr 05/24/19 05/24/19 05/24/19 Range/Units 10:57 10:57 10:57 WBC 5.61 (4.0-11.0) K/uL RBC 5.41 (4.50-5.90) M/uL Hgb 16.5 (13.0-17.0) g/dL Hct 45.6 (38.0-50.0) % MCV 84.3 (80.0-98.0) fL MCH 30.5 (27.0-32.0) pg MCHC 36.2 (31.0-37.0) g/dL RDW Std Deviation 38.9 (28.0-62.0) fl RDW Coeff of Enrrique 13 (11.0-15.0) % Plt Count 209 (150-400) K/uL MPV 10.10 (7.40-12.00) fL Neut % (Auto) 73.2 (48.0-80.0) % Lymph % (Auto) 23.0 (16.0-40.0) % Lipscomb % (Auto) 2.5 (0.0-15.0) % Eos % (Auto) 0.2 (0.0-7.0) % Baso % (Auto) 1.1 (0.0-1.5) % Neut # (Auto) 4.1 (1.4-5.7) K/uL Lymph # (Auto) 1.3 (0.6-2.4) K/uL Lipscomb # (Auto) 0.1 (0.0-0.8) K/uL Eos # (Auto) 0.0 (0.0-0.7) K/uL Baso # (Auto) 0.1 (0.0-0.1) K/uL Nucleated RBC % 0.0 /100WBC Nucleated RBCs # 0 K/uL Sodium 137 (136-148) mmol/L Potassium 3.5 (3.5-5.1) mmol/L Chloride 102 (98-107) mmol/L Carbon Dioxide 21.6 (21.0-32.0) mmol/L BUN 9 (7.0-18.0) mg/dL Creatinine 0.6 L (0.8-1.3) mg/dL Est Cr Clr Drug Dosing 150.90 mL/min Estimated GFR (MDRD) > 60.0 ml/min Glucose 94 (74-106) mg/dL Calcium 8.0 L (8.5-10.1) mg/dL Urine Opiates Screen NEGATIVE (NEGATIVE) Ur Oxycodone Screen NEGATIVE (NEGATIVE) Urine Methadone Screen NEGATIVE (NEGATIVE) Ur Barbiturates Screen NEGATIVE (NEGATIVE) Ur Phencyclidine Scrn NEGATIVE (NEGATIVE) Ur Amphetamine Screen NEGATIVE (NEGATIVE) U Methamphetamines Scrn NEGATIVE (NEGATIVE) U Benzodiazepines Scrn NEGATIVE (NEGATIVE) U Cocaine Metab Screen NEGATIVE (NEGATIVE) U Marijuana (THC) Screen NEGATIVE (NEGATIVE) Ethyl Alcohol 67 mg/dL Result Diagrams: 05/24/19 10:57 05/24/19 10:57 Sepsis Event Note - Evaluation Sepsis Screening Result: No Definite Risk - Focused Exam Vital Signs: Vital Signs Temp Pulse Resp BP Pulse Ox 05/24/19 11:50 97.5 F 95 151/95 H 95 05/24/19 10:17 97.7 F 122 H 20 142/103 H 97 Date Exam was Performed: 05/24/19 Time Exam was Performed: 13:40 - Problem List (1) Alcohol withdrawal SNOMED Code(s): 246349914 ICD Code: F10.239 - ALCOHOL DEPENDENCE WITH WITHDRAWAL, UNSPECIFIED Status : Acute Current Visit: Yes Qualifiers: Complication of substance-induced condition: uncomplicated Qualified Code(s ): F10.230 - Alcohol dependence with withdrawal, uncomplicated (2) Anxiety SNOMED Code(s): 68080033 ICD Code: F41.9 - ANXIETY DISORDER, UNSPECIFIED Status: Acute Current Visit: No (3) Hx of diverticulitis of colon SNOMED Code(s): 303685404372854 ICD Code: Z87.19 - PERSONAL HISTORY OF OTHER DISEASES OF THE DIGESTIVE SYSTEM Status: Chronic Current Visit: No Problem List Initiated/Reviewed/Updated: Yes Orders Last 24hrs: Active Orders 24 hr Category Date Time Status Admission Status [Patient Status] [ADT] Stat ADT 05/24/19 12:03 Active Antiembolic Devices [RC] PER UNIT ROUTINE Care 05/24/19 12:56 Ordered CIWAA Assessment [RC] Q4H Care 05/24/19 12:57 Ordered Cardiac Monitoring [RC] . DIRECTED Care 05/24/19 12:56 Ordered EKG 12 Lead [EKG Documentation Completion] [RC] STAT Care 05/24/19 10:14 Active Height and Weight [RC] DAILY Care 05/24/19 12:54 Ordered Intake and Output [RC] QSHIFT Care 05/24/19 12:55 Ordered Oxygen Therapy [RC] PRN Care 05/24/19 12:54 Ordered Up With Assistance [RC] ASDIRECTED Care 05/24/19 12:54 Ordered VTE/DVT Education [RC] PER UNIT ROUTINE Care 05/24/19 12:54 Ordered Vital Signs [RC] Q1H Care 05/24/19 12:54 Ordered Regular Diet [DIET] Diet 05/24/19 Lunch Ordered Folic Acid Med 05/25/19 09:00 Ordered 1 mg PO DAILY LORazepam [Ativan] Med 05/24/19 12:54 Ordered See Protocol IV Q2H PRN Ondansetron [Zofran] Med 05/24/19 12:54 Ordered 4 mg IVPUSH Q4H PRN Sodium Chloride 0.9% [Saline Flush] Med 05/24/19 12:54 Ordered 10 ml FLUSH ASDIRECTED PRN Sodium Chloride 0.9% [Saline Flush] Med 05/24/19 12:54 Ordered 2.5 ml FLUSH ASDIRECTED PRN Thiamine [Vitamin B-1] Med 05/25/19 09:00 Ordered 100 mg PO DAILY Saline Lock Insert [OM.PC] Routine Oth 05/24/19 12:54 Ordered Sequential Compression Device [OM.PC] Per Unit Routine Oth 05/24/19 12:55 Ordered Resuscitation Status Routine Resus Stat 05/24/19 12:54 Ordered Medication Orders Lorazepam (Ativan) 0 mg IV Q2H PRN; Protocol PRN Reason: CIWAA Ondansetron HCl (Zofran) 4 mg IVPUSH Q4H PRN PRN Reason: Nausea Sodium Chloride (Saline Flush) 10 ml FLUSH ASDIRECTED PRN PRN Reason: Keep Vein Open Sodium Chloride (Saline Flush) 2.5 ml FLUSH ASDIRECTED PRN PRN Reason: Keep Vein Open Assessment/Plan Comment:: This 34 year old male admitted with alcohol withdrawal 1. Alcohol withdrawal: CIWAA assessment with Ativan protocol. Supplement with thiamine and folic acid. Monitor BP. Seizure precautions. Speak with Telepsych for consult. Arrange outpatient resources. VTE prophylaxis: SCDS GI: Protonix. Dispo: 1-2 days - Mortality Measure Prognosis:: Good
[2019-05-24] MEDS: Pantoprazole 40 MG in Sodium Chloride 0.9% 10 ML IV SCH (14:47)
[2019-05-24] MEDS: LORazepam 2 MG/ML SDV IV PRN ×2 (16:02→21:08)
--- NOTE | 2019-05-24 16:24 | PN ---
THC Physician - Brief Progress [id number]/19/2019 16:20[facility] Agnes Barrios, EMERY - MWGary ([facility] - ANGIEN ALLYN VALENZUELADate of Service 05/24/2019 16:20HPI/Events of Note eICU Admission [id number] admitted for EtOH withdrawal. History obtained primarily from review of E MR.PMH: Diverticulitis, alcohol abuseHPI: Patient presented to the ER with concerns of alcohol withdr awal, with sensation of being shaky. Last drink was yesterday evening. Patient drinks about 1 pint of vodka daily. He was admitted to the ICU for alcohol withdrawal.Camera exam: Laying in bed. Vitals monitor reviewed. Vitals: reviewedLabs: reviewedRadiology: reviewedMeds: reviewedeICU Impression and Recommendations:Alcohol WithdrawalAlcohol withdrawal protocol per institutional policy, including ad ministration of PRN benzodiazepinesContinued telemetry monitoringThiamine supplementation, 100mg ge yFolic acid, 400mcg dailyLFTs, acetaminophen level, salicylate level, serum osmolality to rule out co -ingestantDVT and GI prophylaxis as appropriate.Thank you for allowing us to participate in the care of this patient.The above note transcribed with the assistance of dictation software. Please excuse a ny errors.Interventions Major-Other: EtOH withdrawal
[2019-05-25 06:33] LABS: BLOOD UREA NITROGEN,BUN 9 mg/dL (7.0-18.0); CARBON DIOXIDE,CO2 25.5 mmol/L (21.0-32.0); CHLORIDE,CL 104 mmol/L (98-107); GLUCOSE RANDOM 89 mg/dL (74-106); POTASSIUM,K 3.7 mmol/L (3.5-5.1); SODIUM,NA 139 mmol/L (136-148)
[2019-05-25] MEDS: Thiamine 100 MG Tab PO SCH (08:48)
[2019-05-25] MEDS: Folic Acid 1 MG Tab PO SCH (08:48)
--- NOTE | 2019-05-25 09:25 | PCM.PN ---
<Nicole Bryan - Last Filed: 05/25/19 13:18> - General Info Date of Service: 05/25/19 Subjective Update: Seen at bedside: Endorsing a mild headache. Mentions to me that he restarted drinking secondary to his father recently passing away mentions he tried going to outpatient alcohol rehab "but picked a different route" . No other complaints at this time. - Review of Systems General: Denies: Fever, Weakness, Fatigue HEENT: Reports: No Symptoms Pulmonary: Reports: No Symptoms Cardiovascular: Reports: No Symptoms Gastrointestinal: Reports: No Symptoms Musculoskeletal: Reports: No Symptoms Neurological: Reports: Headache. Denies: Confusion, Dizziness Psychiatric: Reports: Depression - Patient Data Vitals - Most Recent: Last Vital Signs Temp 98.0 F 05/25/19 03:00 Pulse 56 L 05/25/19 06:00 Resp 19 05/25/19 06:00 BP 127/85 05/25/19 06:00 Pulse Ox 95 05/25/19 06:00 Weight - Most Recent: 98 kg I&O - Last 24 Hours: Intake & Output 05/24/19 05/25/19 05/25/19 22:59 06:59 14:59 Intake Total 600 Output Total 600 300 Balance -600 300 Lab Results Last 24 Hours: Laboratory Results - last 24 hr 05/24/19 05/24/19 05/24/19 Range/Units 10:57 10:57 10:57 WBC 5.61 (4.0-11.0) K/uL RBC 5.41 (4.50-5.90) M/uL Hgb 16.5 (13.0-17.0) g/dL Hct 45.6 (38.0-50.0) % MCV 84.3 (80.0-98.0) fL MCH 30.5 (27.0-32.0) pg MCHC 36.2 (31.0-37.0) g/dL RDW Std Deviation 38.9 (28.0-62.0) fl RDW Coeff of Enrrique 13 (11.0-15.0) % Plt Count 209 (150-400) K/uL MPV 10.10 (7.40-12.00) fL Neut % (Auto) 73.2 (48.0-80.0) % Lymph % (Auto) 23.0 (16.0-40.0) % Carlton % (Auto) 2.5 (0.0-15.0) % Eos % (Auto) 0.2 (0.0-7.0) % Baso % (Auto) 1.1 (0.0-1.5) % Neut # (Auto) 4.1 (1.4-5.7) K/uL Lymph # (Auto) 1.3 (0.6-2.4) K/uL Carlton # (Auto) 0.1 (0.0-0.8) K/uL Eos # (Auto) 0.0 (0.0-0.7) K/uL Baso # (Auto) 0.1 (0.0-0.1) K/uL Nucleated RBC % 0.0 /100WBC Nucleated RBCs # 0 K/uL Sodium 137 (136-148) mmol/L Potassium 3.5 (3.5-5.1) mmol/L Chloride 102 (98-107) mmol/L Carbon Dioxide 21.6 (21.0-32.0) mmol/L BUN 9 (7.0-18.0) mg/dL Creatinine 0.6 L (0.8-1.3) mg/dL Est Cr Clr Drug Dosing 150.90 mL/min Estimated GFR (MDRD) > 60.0 ml/min Glucose 94 (74-106) mg/dL Calcium 8.0 L (8.5-10.1) mg/dL Phosphorus (2.6-4.7) mg/dL Magnesium (1.8-2.4) mg/dL Total Bilirubin (0.2-1.0) mg/dL AST (15-37) IU/L ALT (14-63) IU/L Alkaline Phosphatase (46-116) U/L Total Protein (6.4-8.2) g/dL Albumin (3.4-5.0) g/dL Globulin (2.6-4.0) g/dL Albumin/Globulin Ratio (0.9-1.6) Urine Opiates Screen NEGATIVE (NEGATIVE) Ur Oxycodone Screen NEGATIVE (NEGATIVE) Urine Methadone Screen NEGATIVE (NEGATIVE) Ur Barbiturates Screen NEGATIVE (NEGATIVE) Ur Phencyclidine Scrn NEGATIVE (NEGATIVE) Ur Amphetamine Screen NEGATIVE (NEGATIVE) U Methamphetamines Scrn NEGATIVE (NEGATIVE) U Benzodiazepines Scrn NEGATIVE (NEGATIVE) U Cocaine Metab Screen NEGATIVE (NEGATIVE) U Marijuana (THC) Screen NEGATIVE (NEGATIVE) Ethyl Alcohol 67 mg/dL 05/25/19 Range/Units 05:45 WBC (4.0-11.0) K/uL RBC (4.50-5.90) M/uL Hgb (13.0-17.0) g/dL Hct (38.0-50.0) % MCV (80.0-98.0) fL MCH (27.0-32.0) pg MCHC (31.0-37.0) g/dL RDW Std Deviation (28.0-62.0) fl RDW Coeff of Enrrique (11.0-15.0) % Plt Count (150-400) K/uL MPV (7.40-12.00) fL Neut % (Auto) (48.0-80.0) % Lymph % (Auto) (16.0-40.0) % Carlton % (Auto) (0.0-15.0) % Eos % (Auto) (0.0-7.0) % Baso % (Auto) (0.0-1.5) % Neut # (Auto) (1.4-5.7) K/uL Lymph # (Auto) (0.6-2.4) K/uL Carlton # (Auto) (0.0-0.8) K/uL Eos # (Auto) (0.0-0.7) K/uL Baso # (Auto) (0.0-0.1) K/uL Nucleated RBC % /100WBC Nucleated RBCs # K/uL Sodium 139 (136-148) mmol/L Potassium 3.7 (3.5-5.1) mmol/L Chloride 104 (98-107) mmol/L Carbon Dioxide 25.5 (21.0-32.0) mmol/L BUN 9 (7.0-18.0) mg/dL Creatinine 0.7 L (0.8-1.3) mg/dL Est Cr Clr Drug Dosing 134.18 mL/min Estimated GFR (MDRD) > 60.0 ml/min Glucose 89 (74-106) mg/dL Calcium 8.2 L (8.5-10.1) mg/dL Phosphorus 3.4 (2.6-4.7) mg/dL Magnesium 1.9 (1.8-2.4) mg/dL Total Bilirubin 3.3 H (0.2-1.0) mg/dL AST 42 H (15-37) IU/L ALT 43 (14-63) IU/L Alkaline Phosphatase 71 (46-116) U/L Total Protein 7.0 (6.4-8.2) g/dL Albumin 3.5 (3.4-5.0) g/dL Globulin 3.5 (2.6-4.0) g/dL Albumin/Globulin Ratio 1.0 (0.9-1.6) Urine Opiates Screen (NEGATIVE) Ur Oxycodone Screen (NEGATIVE) Urine Methadone Screen (NEGATIVE) Ur Barbiturates Screen (NEGATIVE) Ur Phencyclidine Scrn (NEGATIVE) Ur Amphetamine Screen (NEGATIVE) U Methamphetamines Scrn (NEGATIVE) U Benzodiazepines Scrn (NEGATIVE) U Cocaine Metab Screen (NEGATIVE) U Marijuana (THC) Screen (NEGATIVE) Ethyl Alcohol mg/dL Med Orders - Current: Current Medications Folic Acid (Folic Acid) 1 mg PO DAILY [facility] Last Admin: 05/25/19 08:48 Dose: 1 mg Pantoprazole Sodium 40 mg/ (Sodium Chloride) 10 mls @ 300 mls/hr IV Q24H [facility] Last Admin: 05/24/19 14:47 Dose: 300 mls/hr Lorazepam (Ativan) 0 mg IV Q2H PRN; Protocol PRN Reason: CIWAA Last Admin: 05/24/19 21:08 Dose: 1 mg Ondansetron HCl (Zofran) 4 mg IVPUSH Q4H PRN PRN Reason: Nausea Sodium Chloride (Saline Flush) 10 ml FLUSH ASDIRECTED PRN PRN Reason: Keep Vein Open Sodium Chloride (Saline Flush) 2.5 ml FLUSH ASDIRECTED PRN PRN Reason: Keep Vein Open Thiamine HCl (Vitamin B-1) 100 mg PO DAILY [facility] Last Admin: 05/25/19 08:48 Dose: 100 mg Discontinued Medications Chlordiazepoxide HCl (Librium) 50 mg PO ONETIME ONE Stop: 05/24/19 10:42 Last Admin: 05/24/19 11:09 Dose: 50 mg Sodium Chloride (Normal Saline) 1,000 mls @ 1,000 mls/hr IV .Bolus ONE Stop: 05/24/19 11:40 Last Admin: 05/24/19 11:08 Dose: 1,000 mls/hr Thiamine HCl 100 mg/ Sodium (Chloride) 101 mls @ 202 mls/hr IV ONETIME ONE Stop: 05/24/19 10:42 Last Admin: 05/24/19 11:29 Dose: 202 mls/hr Lorazepam (Ativan) 2 mg IVPUSH ONETIME ONE Stop: 05/24/19 10:42 Last Admin: 05/24/19 11:09 Dose: 2 mg - Exam General: Alert, Oriented HEENT: Pupils Equal, EOMI Neck: Supple, Trachea Midline Lungs: Clear to Auscultation, Normal Respiratory Effort Cardiovascular: Regular Rate, Regular Rhythm GI/Abdominal Exam: Soft, Non-Tender Skin: Warm, Dry Neurological: No New Focal Deficit Psy/Mental Status: Alert, Normal Affect Sepsis Event Note - Evaluation Sepsis Screening Result: No Definite Risk - Focused Exam Vital Signs: Vital Signs Temp Pulse Resp BP Pulse Ox 05/25/19 06:00 56 L 19 127/85 95 05/25/19 05:00 77 20 114/87 97 05/25/19 04:00 68 16 135/89 96 05/25/19 03:00 98.0 F 86 20 118/92 H 95 05/25/19 02:00 61 18 130/86 95 05/25/19 01:00 71 18 121/90 96 05/25/19 00:00 70 20 123/88 95 05/24/19 23:10 77 21 H 123/90 95 05/24/19 22:00 97.9 F 79 21 H 126/89 93 L Date Exam was Performed: 05/25/19 Time Exam was Performed: 13:18 - Problem List Review Problem List Initiated/Reviewed/Updated: Yes - Plan Plan:: This 34 year old male admitted with alcohol withdrawal 1. Alcohol withdrawal: CIWAA assessment with Ativan protocol. Supplement with thiamine and folic acid. Monitor BP. Seizure precautions. Speak with Telepsych for consult. Arrange outpatient resources. VTE prophylaxis: SCDS GI: Protonix. Dispo: 1-2 days <Mayra Casas - Last Filed: 05/26/19 11:19> - Patient Data Vitals - Most Recent: Last Vital Signs Temp 36.6 C 05/26/19 04:00 Pulse 99 05/25/19 19:00 Resp 18 05/26/19 09:00 BP 106/79 05/26/19 09:00 Pulse Ox 96 05/26/19 09:00 I&O - Last 24 Hours: Intake & Output 05/25/19 05/26/19 05/26/19 22:59 06:59 14:59 Intake Total 2465 1480 Output Total 2350 1725 Balance 115 -245 Lab Results Last 24 Hours: Laboratory Results - last 24 hr 05/26/19 05/26/19 Range/Units 06:03 06:03 WBC 4.68 (4.0-11.0) K/uL RBC 5.19 (4.50-5.90) M/uL Hgb 15.6 (13.0-17.0) g/dL Hct 44.2 (38.0-50.0) % MCV 85.2 (80.0-98.0) fL MCH 30.1 (27.0-32.0) pg MCHC 35.3 (31.0-37.0) g/dL RDW Std Deviation 39.2 (28.0-62.0) fl RDW Coeff of Enrrique 13 (11.0-15.0) % Plt Count 157 (150-400) K/uL MPV 9.90 (7.40-12.00) fL Neut % (Auto) 63.7 (48.0-80.0) % Lymph % (Auto) 26.5 (16.0-40.0) % Carlton % (Auto) 5.8 (0.0-15.0) % Eos % (Auto) 3.4 (0.0-7.0) % Baso % (Auto) 0.6 (0.0-1.5) % Neut # (Auto) 3.0 (1.4-5.7) K/uL Lymph # (Auto) 1.2 (0.6-2.4) K/uL Carlton # (Auto) 0.3 (0.0-0.8) K/uL Eos # (Auto) 0.2 (0.0-0.7) K/uL Baso # (Auto) 0.0 (0.0-0.1) K/uL Nucleated RBC % 0.0 /100WBC Nucleated RBCs # 0 K/uL Sodium 141 (136-148) mmol/L Potassium 4.0 (3.5-5.1) mmol/L Chloride 106 (98-107) mmol/L Carbon Dioxide 25.4 (21.0-32.0) mmol/L BUN 13 (7.0-18.0) mg/dL Creatinine 0.7 L (0.8-1.3) mg/dL Est Cr Clr Drug Dosing 134.18 mL/min Estimated GFR (MDRD) > 60.0 ml/min Glucose 95 (74-106) mg/dL Calcium 8.3 L (8.5-10.1) mg/dL Total Bilirubin 1.8 H (0.2-1.0) mg/dL AST 35 (15-37) IU/L ALT 41 (14-63) IU/L Alkaline Phosphatase 71 (46-116) U/L Total Protein 7.0 (6.4-8.2) g/dL Albumin 3.6 (3.4-5.0) g/dL Globulin 3.4 (2.6-4.0) g/dL Albumin/Globulin Ratio 1.1 (0.9-1.6) Iftikhar Results Last 24 Hours: Microbiology 05/25/19 14:50 Stool Occult Blood (IFTIKHAR) - Final Stool / Feces NEGATIVE OCCULT BLOOD REFERENCE RANGE: NEGATIVE Med Orders - Current: Current Medications Acetaminophen (Tylenol) 650 mg PO Q4H PRN PRN Reason: Pain Last Admin: 05/25/19 23:06 Dose: 650 mg Chlordiazepoxide HCl (Librium) 5 mg PO BID [facility] Last Admin: 05/26/19 09:18 Dose: 5 mg Fluoxetine HCl (Prozac) 20 mg PO DAILY [facility] Last Admin: 05/26/19 09:18 Dose: 20 mg Folic Acid (Folic Acid) 1 mg PO DAILY [facility] Last Admin: 05/26/19 09:18 Dose: 1 mg Pantoprazole Sodium 40 mg/ (Sodium Chloride) 10 mls @ 300 mls/hr IV Q24H [facility] Last Admin: 05/25/19 13:49 Dose: 300 mls/hr Lorazepam (Ativan) 0 mg IV Q2H PRN; Protocol PRN Reason: CIWAA Last Admin: 05/25/19 20:00 Dose: 1 mg Ondansetron HCl (Zofran) 4 mg IVPUSH Q4H PRN PRN Reason: Nausea Quetiapine Fumarate (Seroquel) 25 mg PO BEDTIME [facility] Last Admin: 05/25/19 20:53 Dose: 25 mg Sodium Chloride (Saline Flush) 10 ml FLUSH ASDIRECTED PRN PRN Reason: Keep Vein Open Sodium Chloride (Saline Flush) 2.5 ml FLUSH ASDIRECTED PRN PRN Reason: Keep Vein Open Thiamine HCl (Vitamin B-1) 100 mg PO DAILY [facility] Last Admin: 05/26/19 09:18 Dose: 100 mg Topiramate (Topamax) 25 mg PO BID [facility] Last Admin: 05/26/19 09:17 Dose: 25 mg Discontinued Medications Chlordiazepoxide HCl (Librium) 50 mg PO ONETIME ONE Stop: 05/24/19 10:42 Last Admin: 05/24/19 11:09 Dose: 50 mg Sodium Chloride (Normal Saline) 1,000 mls @ 1,000 mls/hr IV .Bolus ONE Stop: 05/24/19 11:40 Last Admin: 05/24/19 11:08 Dose: 1,000 mls/hr Thiamine HCl 100 mg/ Sodium (Chloride) 101 mls @ 202 mls/hr IV ONETIME ONE Stop: 05/24/19 10:42 Last Admin: 05/24/19 11:29 Dose: 202 mls/hr Multivitamins/Minerals 10 ml/Thiamine HCl 100 mg/ Folic Acid 1 mg/ Sodium Chloride 1,011.2 mls @ 125 mls/hr IV ONETIME ONE Stop: 05/25/19 18:46 Last Admin: 05/25/19 11:01 Dose: 125 mls/hr Magnesium Sulfate 1 gm/ (Dextrose/Water) 52 mls @ 50 mls/hr IV NOW ONE Stop: 05/25/19 20:47 Last Admin: 05/25/19 20:01 Dose: Not Given Magnesium Sulfate 1 gm/ Premix 25 mls @ 12.5 mls/hr IV ONETIME ONE Stop: 05/25/19 21:58 Last Admin: 05/25/19 20:23 Dose: 12.5 mls/hr Lorazepam (Ativan) 2 mg IVPUSH ONETIME ONE Stop: 05/24/19 10:42 Last Admin: 05/24/19 11:09 Dose: 2 mg Magnesium Sulfate (Magnesium Sulfate 50%) 1 gm IV ONETIME ONE Stop: 05/25/19 19:35 Last Admin: 05/25/19 20:09 Dose: Not Given Quetiapine Fumarate (Seroquel) 25 mg PO ONETIME ONE Stop: 05/25/19 13:48 Last Admin: 05/25/19 14:08 Dose: 25 mg Sepsis Event Note - Focused Exam Vital Signs: Vital Signs Temp Resp BP BP Pulse Ox 05/26/19 09:00 18 106/79 96 05/26/19 07:00 14 116/88 96 05/26/19 06:00 14 102/84 97 05/26/19 05:00 15 111/79 99 05/26/19 04:00 36.6 C 16 108/68 98 05/26/19 03:00 14 106/76 97 05/26/19 02:00 18 117/83 95 05/26/19 01:00 18 110/79 95 05/26/19 00:00 36.4 C 20 102/66 95 Date Exam was Performed: 05/26/19 Time Exam was Performed: 11:18 - Problem List & Annotations (1) Alcohol withdrawal SNOMED Code(s): 923451496 Code(s): F10.239 - ALCOHOL DEPENDENCE WITH WITHDRAWAL, UNSPECIFIED Status: Acute Current Visit: Yes Qualifiers: Complication of substance-induced condition: uncomplicated Qualified Code(s ): F10.230 - Alcohol dependence with withdrawal, uncomplicated (2) Alcohol abuse SNOMED Code(s): 53439696 Code(s): F10.10 - ALCOHOL ABUSE, UNCOMPLICATED Status: Acute Current Visit: No (3) Anxiety SNOMED Code(s): 00554872 Code(s): F41.9 - ANXIETY DISORDER, UNSPECIFIED Status: Acute Current Visit: No - My Orders Last 24 Hours: My Active Orders 05/25/19 22:37 Acetaminophen [Tylenol] 650 mg PO Q4H PRN - Plan Plan:: I have seen and evaluated the patient and agree with the residents note unless specified in my note
--- NOTE | 2019-05-25 09:35 | PN ---
TH[facility] Physician - Brief Progress [id number]/20/2019 09:30[facility] Agnes Barrios, EMERY - ANTHONY [facility] - ANTHONY ALLYN VALENZUELASusieDate of Service 05/25/2019 09:30HPI/Events of Note eICU Admission [id number] admitted for EtOH withdrawal. History obtained primarily from review of E MR.Camera exam: Laying in bed. Vitals monitor reviewed.Vitals: reviewedLabs: reviewedRadiology: revmey wedMeds: reviewedeICU Impression and Recommendations:Alcohol WithdrawalContinue alcohol withdrawal pr otocol per institutional policy, including administration of PRN benzodiazepinesContinued telemetry m onitoringThiamine supplementation, 100mg dailyFolic acid, 400mcg dailyDVT and GI prophylaxis as appro priate.Thank you for allowing us to participate in the care of this patient.The above note transcribe d with the assistance of dictation software. Please excuse any errors.Interventions Major-Other: EtOH withdrawal
[2019-05-25] MEDS: LORazepam 2 MG/ML SDV IV PRN ×2 (10:11→20:00)
[2019-05-25] MEDS ORDERED: MVI, Adult with Vitamin K 10 ML, Thiamine 100 MG, Folic Acid 1 MG in Sodium Chloride 0.... IV ONE ×4 (10:41)
[2019-05-25] MEDS ORDERED: QUEtiapine 25 MG Tab PO ONE (13:47)
[2019-05-25] MEDS: Pantoprazole 40 MG in Sodium Chloride 0.9% 10 ML IV SCH (13:49)
[2019-05-25 19:08] VITALS: PULSE 99
[2019-05-25] MEDS ORDERED: Magnesium Sulfate (4.06 MEQ/ML) 1 GM/2 ML SDV IV ONE (19:34)
[2019-05-25] MEDS ORDERED: Magnesium Sulfate/Water 1 GM in Premix Bag 1 BAG IV ONE (19:59)
[2019-05-25] MEDS: Topiramate 50 MG Tab PO SCH (20:53)
[2019-05-25] MEDS ORDERED: QUEtiapine 25 MG Tab PO SCH (21:00)
[2019-05-25] MEDS ORDERED: Acetaminophen 325 MG Tab PO PRN (22:37)
[2019-05-26 06:39] LABS: BLOOD UREA NITROGEN,BUN 13 mg/dL (7.0-18.0); CARBON DIOXIDE,CO2 25.4 mmol/L (21.0-32.0); CHLORIDE,CL 106 mmol/L (98-107); GLUCOSE RANDOM 95 mg/dL (74-106); SODIUM,NA 141 mmol/L (136-148)
[2019-05-26] MEDS ORDERED: FLUoxetine 20 MG Cap PO SCH (09:00)
[2019-05-26] MEDS: Topiramate 50 MG Tab PO SCH (09:17)
[2019-05-26] MEDS: Folic Acid 1 MG Tab PO SCH (09:18)
[2019-05-26] MEDS: Thiamine 100 MG Tab PO SCH (09:18)
[2019-05-26 09:29] VITALS: BP 106/79
--- NOTE | 2019-05-26 11:42 | PCM.DCSUM1 ---
<Nicole Bryan - Last Filed: 05/26/19 14:04> Discharge Summary - Hospital Course Free Text/Narrative:: Discharge summary Admission date May 24, 2019 Discharge date May 26, 2019 Admission diagnoses: Alcohol intoxication with impending withdrawal Chronic alcohol abuse Discharge diagnoses: Alcohol intoxication with impending withdrawal resolved Chronic alcohol abuse Depression Consultations: of psychiatry Procedures: None Hospital course: Patient is a 34-year-old male with no significant past medical history except for chronic alcohol abuse; presented to [facility] in [place] for alcohol intoxication with impending withdrawal. CIWA protocol was initiated/seizure protocol prevention/and patient was monitored with electrolytes repleted as needed. Throughout stay patient was fairly stable; did occasionally have some PVCs which have resolved; most likely secondary to alcohol withdrawal. A prior to discharge patient was seen by of tele-psychiatry; recommended patient be initiated on Topamax 25 mg twice daily/fluoxetine 20 mg daily/and provide patient with Seroquel 25 mg at night. Was also recommended to have a comprehensive outpatient approach to help patient with alcohol abuse and dependence/was set up with AA meetings outpatient and to follow-up with at his outpatient clinic which is currently in the process of being set up. Day of discharge: Patient feeling better. Endorsing wanting to go home. Vitals stable; no active or acute withdrawal symptoms. Patient was stable on new medications and on discharge. Discharge condition:Stable Disposition:Home - Discharge Data Discharge Date: 05/26/19 Discharge Disposition: Home, Self-Care 01 Condition: Good - Referral to Home Health Primary Care Physician: PCP None - Patient Summary/Data Consults: Consultations 05/25/19 13:19 Consult to Physician [CONS] Routine 05/25/19 16:28 Consult to Spiritual Care [CONS] Routine - Patient Instructions Diet: No Alcoholic Beverages, Weight Loss Diet Driving: May Drive Today Showering/Bathing: May Shower Notify Provider of: Fever, Increased Pain, Nausea and/or Vomiting - Discharge Plan *PRESCRIPTION DRUG MONITORING PROGRAM REVIEWED*: No *COPY OF PRESCRIPTION DRUG MONITORING REPORT IN PATIENT CATRACHO: No Prescriptions/Med Rec: FLUoxetine HCl [Prozac] 20 mg PO DAILY 30 Days #30 capsule QUEtiapine [SEROquel] 25 mg PO BEDTIME 7 Days #7 tab Topiramate 25 mg PO BID 30 Days #60 tablet Home Medications: Home Meds FLUoxetine HCl [Prozac] 20 mg PO DAILY 30 Days #30 capsule 05/26/19 [Rx] QUEtiapine [SEROquel] 25 mg PO BEDTIME 7 Days #7 tab 05/26/19 [Rx] Topiramate 25 mg PO BID 30 Days #60 tablet 05/26/19 [Rx] Patient Handouts: Quetiapine tablets, Fluoxetine capsules or tablets ( Depression/Mood Disorders), Topiramate tablets, Alcohol Withdrawal Syndrome, Hksy-ii-Dqru Forms: Return to Work/Inpatient [facility] Referrals: [facility] [Outside] Gus Lopez MD [Physician] - (Please visit [email or web address] to arrange for an outpatient appointment with or one of his colleagues. ) Nicole Bryan MD [Resident] - 06/07/19 3:00 pm - Discharge Summary/Plan Comment DC Time >30 min.: No - Patient Data Vitals - Most Recent: Last Vital Signs Temp 97.8 F 05/26/19 04:00 Pulse 99 05/25/19 19:00 Resp 18 05/26/19 09:00 BP 106/79 05/26/19 09:00 Pulse Ox 96 05/26/19 09:00 Weight - Most Recent: 97.4 kg I&O - Last 24 hours: Intake & Output 05/25/19 05/26/19 05/26/19 22:59 06:59 14:59 Intake Total 2465 1480 Output Total 2350 1725 Balance 115 -245 Lab Results - Last 24 hrs: Laboratory Results - last 24 hr 05/26/19 05/26/19 Range/Units 06:03 06:03 WBC 4.68 (4.0-11.0) K/uL RBC 5.19 (4.50-5.90) M/uL Hgb 15.6 (13.0-17.0) g/dL Hct 44.2 (38.0-50.0) % MCV 85.2 (80.0-98.0) fL MCH 30.1 (27.0-32.0) pg MCHC 35.3 (31.0-37.0) g/dL RDW Std Deviation 39.2 (28.0-62.0) fl RDW Coeff of Enrrique 13 (11.0-15.0) % Plt Count 157 (150-400) K/uL MPV 9.90 (7.40-12.00) fL Neut % (Auto) 63.7 (48.0-80.0) % Lymph % (Auto) 26.5 (16.0-40.0) % [place] % (Auto) 5.8 (0.0-15.0) % Eos % (Auto) 3.4 (0.0-7.0) % Baso % (Auto) 0.6 (0.0-1.5) % Neut # (Auto) 3.0 (1.4-5.7) K/uL Lymph # (Auto) 1.2 (0.6-2.4) K/uL [place] # (Auto) 0.3 (0.0-0.8) K/uL Eos # (Auto) 0.2 (0.0-0.7) K/uL Baso # (Auto) 0.0 (0.0-0.1) K/uL Nucleated RBC % 0.0 /100WBC Nucleated RBCs # 0 K/uL Sodium 141 (136-148) mmol/L Potassium 4.0 (3.5-5.1) mmol/L Chloride 106 (98-107) mmol/L Carbon Dioxide 25.4 (21.0-32.0) mmol/L BUN 13 (7.0-18.0) mg/dL Creatinine 0.7 L (0.8-1.3) mg/dL Est Cr Clr Drug Dosing 134.18 mL/min Estimated GFR (MDRD) > 60.0 ml/min Glucose 95 (74-106) mg/dL Calcium 8.3 L (8.5-10.1) mg/dL Total Bilirubin 1.8 H (0.2-1.0) mg/dL AST 35 (15-37) IU/L ALT 41 (14-63) IU/L Alkaline Phosphatase 71 (46-116) U/L Total Protein 7.0 (6.4-8.2) g/dL Albumin 3.6 (3.4-5.0) g/dL Globulin 3.4 (2.6-4.0) g/dL Albumin/Globulin Ratio 1.1 (0.9-1.6) ESTEE Results - Last 24 hrs: Microbiology 05/25/19 14:50 Stool Occult Blood (ESTEE) - Final Stool / Feces NEGATIVE OCCULT BLOOD REFERENCE RANGE: NEGATIVE Med Orders - Current: Current Medications Acetaminophen (Tylenol) 650 mg PO Q4H PRN PRN Reason: Pain Last Admin: 05/25/19 23:06 Dose: 650 mg Chlordiazepoxide HCl (Librium) 5 mg PO BID [facility] Last Admin: 05/26/19 09:18 Dose: 5 mg Fluoxetine HCl (Prozac) 20 mg PO DAILY [facility] Last Admin: 05/26/19 09:18 Dose: 20 mg Folic Acid (Folic Acid) 1 mg PO DAILY [facility] Last Admin: 05/26/19 09:18 Dose: 1 mg Pantoprazole Sodium 40 mg/ (Sodium Chloride) 10 mls @ 300 mls/hr IV Q24H [facility] Last Admin: 05/25/19 13:49 Dose: 300 mls/hr Lorazepam (Ativan) 0 mg IV Q2H PRN; Protocol PRN Reason: CIWAA Last Admin: 05/25/19 20:00 Dose: 1 mg Ondansetron HCl (Zofran) 4 mg IVPUSH Q4H PRN PRN Reason: Nausea Quetiapine Fumarate (Seroquel) 25 mg PO BEDTIME [facility] Last Admin: 05/25/19 20:53 Dose: 25 mg Sodium Chloride (Saline Flush) 10 ml FLUSH ASDIRECTED PRN PRN Reason: Keep Vein Open Sodium Chloride (Saline Flush) 2.5 ml FLUSH ASDIRECTED PRN PRN Reason: Keep Vein Open Thiamine HCl (Vitamin B-1) 100 mg PO DAILY [facility] Last Admin: 05/26/19 09:18 Dose: 100 mg Topiramate (Topamax) 25 mg PO BID [facility] Last Admin: 05/26/19 09:17 Dose: 25 mg Discontinued Medications Chlordiazepoxide HCl (Librium) 50 mg PO ONETIME ONE Stop: 05/24/19 10:42 Last Admin: 05/24/19 11:09 Dose: 50 mg Sodium Chloride (Normal Saline) 1,000 mls @ 1,000 mls/hr IV .Bolus ONE Stop: 05/24/19 11:40 Last Admin: 05/24/19 11:08 Dose: 1,000 mls/hr Thiamine HCl 100 mg/ Sodium (Chloride) 101 mls @ 202 mls/hr IV ONETIME ONE Stop: 05/24/19 10:42 Last Admin: 05/24/19 11:29 Dose: 202 mls/hr Multivitamins/Minerals 10 ml/Thiamine HCl 100 mg/ Folic Acid 1 mg/ Sodium Chloride 1,011.2 mls @ 125 mls/hr IV ONETIME ONE Stop: 05/25/19 18:46 Last Admin: 05/25/19 11:01 Dose: 125 mls/hr Magnesium Sulfate 1 gm/ (Dextrose/Water) 52 mls @ 50 mls/hr IV NOW ONE Stop: 05/25/19 20:47 Last Admin: 05/25/19 20:01 Dose: Not Given Magnesium Sulfate 1 gm/ Premix 25 mls @ 12.5 mls/hr IV ONETIME ONE Stop: 05/25/19 21:58 Last Admin: 05/25/19 20:23 Dose: 12.5 mls/hr Lorazepam (Ativan) 2 mg IVPUSH ONETIME ONE Stop: 05/24/19 10:42 Last Admin: 05/24/19 11:09 Dose: 2 mg Magnesium Sulfate (Magnesium Sulfate 50%) 1 gm IV ONETIME ONE Stop: 05/25/19 19:35 Last Admin: 05/25/19 20:09 Dose: Not Given Quetiapine Fumarate (Seroquel) 25 mg PO ONETIME ONE Stop: 05/25/19 13:48 Last Admin: 05/25/19 14:08 Dose: 25 mg <Mayra Casas - Last Filed: 05/26/19 14:46> Discharge Summary - Hospital Course HPI Initial Comments: I have seen and evaluated the patient and agree with the residents note unless specified in my note - Referral to Home Health Primary Care Physician: PCP None - Discharge Diagnosis/Problem(s) (1) Alcohol withdrawal SNOMED Code(s): 719014292 ICD Code: F10.239 - ALCOHOL DEPENDENCE WITH WITHDRAWAL, UNSPECIFIED Status : Acute Qualifiers: Complication of substance-induced condition: uncomplicated Qualified Code(s ): F10.230 - Alcohol dependence with withdrawal, uncomplicated (2) Alcohol abuse SNOMED Code(s): 27869998 ICD Code: F10.10 - ALCOHOL ABUSE, UNCOMPLICATED Status: Acute (3) Anxiety SNOMED Code(s): 35920549 ICD Code: F41.9 - ANXIETY DISORDER, UNSPECIFIED Status: Acute - Patient Summary/Data Consults: Consultations 05/25/19 13:19 Consult to Physician [CONS] Routine 05/25/19 16:28 Consult to Spiritual Care [CONS] Routine - Patient Data Vitals - Most Recent: Last Vital Signs Temp 36.6 C 05/26/19 04:00 Pulse 99 05/25/19 19:00 Resp 18 05/26/19 09:00 BP 106/79 05/26/19 09:00 Pulse Ox 96 05/26/19 13:00 I&O - Last 24 hours: Intake & Output 05/25/19 05/26/19 05/26/19 22:59 06:59 14:59 Intake Total 2465 1480 Output Total 2350 1725 Balance 115 -245 Lab Results - Last 24 hrs: Laboratory Results - last 24 hr 05/26/19 05/26/19 Range/Units 06:03 06:03 WBC 4.68 (4.0-11.0) K/uL RBC 5.19 (4.50-5.90) M/uL Hgb 15.6 (13.0-17.0) g/dL Hct 44.2 (38.0-50.0) % MCV 85.2 (80.0-98.0) fL MCH 30.1 (27.0-32.0) pg MCHC 35.3 (31.0-37.0) g/dL RDW Std Deviation 39.2 (28.0-62.0) fl RDW Coeff of Enrrique 13 (11.0-15.0) % Plt Count 157 (150-400) K/uL MPV 9.90 (7.40-12.00) fL Neut % (Auto) 63.7 (48.0-80.0) % Lymph % (Auto) 26.5 (16.0-40.0) % [place] % (Auto) 5.8 (0.0-15.0) % Eos % (Auto) 3.4 (0.0-7.0) % Baso % (Auto) 0.6 (0.0-1.5) % Neut # (Auto) 3.0 (1.4-5.7) K/uL Lymph # (Auto) 1.2 (0.6-2.4) K/uL [place] # (Auto) 0.3 (0.0-0.8) K/uL Eos # (Auto) 0.2 (0.0-0.7) K/uL Baso # (Auto) 0.0 (0.0-0.1) K/uL Nucleated RBC % 0.0 /100WBC Nucleated RBCs # 0 K/uL Sodium 141 (136-148) mmol/L Potassium 4.0 (3.5-5.1) mmol/L Chloride 106 (98-107) mmol/L Carbon Dioxide 25.4 (21.0-32.0) mmol/L BUN 13 (7.0-18.0) mg/dL Creatinine 0.7 L (0.8-1.3) mg/dL Est Cr Clr Drug Dosing 134.18 mL/min Estimated GFR (MDRD) > 60.0 ml/min Glucose 95 (74-106) mg/dL Calcium 8.3 L (8.5-10.1) mg/dL Total Bilirubin 1.8 H (0.2-1.0) mg/dL AST 35 (15-37) IU/L ALT 41 (14-63) IU/L Alkaline Phosphatase 71 (46-116) U/L Total Protein 7.0 (6.4-8.2) g/dL Albumin 3.6 (3.4-5.0) g/dL Globulin 3.4 (2.6-4.0) g/dL Albumin/Globulin Ratio 1.1 (0.9-1.6) ESTEE Results - Last 24 hrs: Microbiology 05/25/19 14:50 Stool Occult Blood (ESTEE) - Final Stool / Feces NEGATIVE OCCULT BLOOD REFERENCE RANGE: NEGATIVE Med Orders - Current: Current Medications Discontinued Medications Acetaminophen (Tylenol) 650 mg PO Q4H PRN PRN Reason: Pain Last Admin: 05/25/19 23:06 Dose: 650 mg Chlordiazepoxide HCl (Librium) 50 mg PO ONETIME ONE Stop: 05/24/19 10:42 Last Admin: 05/24/19 11:09 Dose: 50 mg Chlordiazepoxide HCl (Librium) 5 mg PO BID [facility] Last Admin: 05/26/19 09:18 Dose: 5 mg Fluoxetine HCl (Prozac) 20 mg PO DAILY [facility] Last Admin: 05/26/19 09:18 Dose: 20 mg Folic Acid (Folic Acid) 1 mg PO DAILY [facility] Last Admin: 05/26/19 09:18 Dose: 1 mg Sodium Chloride (Normal Saline) 1,000 mls @ 1,000 mls/hr IV .Bolus ONE Stop: 05/24/19 11:40 Last Admin: 05/24/19 11:08 Dose: 1,000 mls/hr Thiamine HCl 100 mg/ Sodium (Chloride) 101 mls @ 202 mls/hr IV ONETIME ONE Stop: 05/24/19 10:42 Last Admin: 05/24/19 11:29 Dose: 202 mls/hr Pantoprazole Sodium 40 mg/ (Sodium Chloride) 10 mls @ 300 mls/hr IV Q24H [facility] Last Admin: 05/25/19 13:49 Dose: 300 mls/hr Multivitamins/Minerals 10 ml/Thiamine HCl 100 mg/ Folic Acid 1 mg/ Sodium Chloride 1,011.2 mls @ 125 mls/hr IV ONETIME ONE Stop: 05/25/19 18:46 Last Admin: 05/25/19 11:01 Dose: 125 mls/hr Magnesium Sulfate 1 gm/ (Dextrose/Water) 52 mls @ 50 mls/hr IV NOW ONE Stop: 05/25/19 20:47 Last Admin: 05/25/19 20:01 Dose: Not Given Magnesium Sulfate 1 gm/ Premix 25 mls @ 12.5 mls/hr IV ONETIME ONE Stop: 05/25/19 21:58 Last Admin: 05/25/19 20:23 Dose: 12.5 mls/hr Lorazepam (Ativan) 2 mg IVPUSH ONETIME ONE Stop: 05/24/19 10:42 Last Admin: 05/24/19 11:09 Dose: 2 mg Lorazepam (Ativan) 0 mg IV Q2H PRN; Protocol PRN Reason: CIWAA Last Admin: 05/25/19 20:00 Dose: 1 mg Magnesium Sulfate (Magnesium Sulfate 50%) 1 gm IV ONETIME ONE Stop: 05/25/19 19:35 Last Admin: 05/25/19 20:09 Dose: Not Given Ondansetron HCl (Zofran) 4 mg IVPUSH Q4H PRN PRN Reason: Nausea Quetiapine Fumarate (Seroquel) 25 mg PO ONETIME ONE Stop: 05/25/19 13:48 Last Admin: 05/25/19 14:08 Dose: 25 mg Quetiapine Fumarate (Seroquel) 25 mg PO BEDTIME [facility] Last Admin: 05/25/19 20:53 Dose: 25 mg Sodium Chloride (Saline Flush) 10 ml FLUSH ASDIRECTED PRN PRN Reason: Keep Vein Open Sodium Chloride (Saline Flush) 2.5 ml FLUSH ASDIRECTED PRN PRN Reason: Keep Vein Open Thiamine HCl (Vitamin B-1) 100 mg PO DAILY [facility] Last Admin: 05/26/19 09:18 Dose: 100 mg Topiramate (Topamax) 25 mg PO BID [facility] Last Admin: 05/26/19 09:17 Dose: 25 mg
== END 2019-05-26 13:45 | disposition home or self-care (01) | DRG 897 ==
LOC: MW.ED 10:06 → MW.ICU 12:20
PROVIDERS: ADMIT Student in an Organized Health Care Education/Training Program; ATTEND Student in an Organized Health Care Education/Training Program
DX: F10.230 Alcohol dependence with withdrawal, uncomplicated (principal); F32.9 Major depressive disorder, single episode, unspecified; Z79.899 Other long term (current) drug therapy; F41.9 Anxiety disorder, unspecified; I10 Essential (primary) hypertension; J45.909 Unspecified asthma, uncomplicated; E66.9 Obesity, unspecified; Z90.49 Acquired absence of other specified parts of digestive tract; Z87.19 Personal history of other diseases of the digestive system; Z68.34 Body mass index [BMI] 34.0-34.9, adult
CPT/HCPCS: 36415; 80048; 80053; 80305-QW; 82272; 83735; 84100; 85025; 93005; 96365; 96375; 99285-25; A9270-GY; C9113; G0480; J2060; J3411; J3475; J7030; J7050